=== PATIENT | male | born 1935 | race Caucasian/White ===

== ENCOUNTER 2023-08-31 14:39 | Inpatient (IN) ==
[2023-08-31] MEDS ORDERED: Patient's HEIGHT &/or WEIGHT Needed SCH (14:49)
[2023-08-31] MEDS ORDERED: SODIUM CHLORIDE 0.9% 500 ML IV ONE (14:51)
[2023-08-31] MEDS ORDERED: ONDANSETRON INJ 2 MG/ML 2 ML VIAL IV STA (14:51)
--- NOTE | 2023-08-31 14:51 | ED Triage Note ---
Date of Service August 31, 2023 Provider in Triage Author: Vernell Pérez History of Present Illness This patient was briefly evaluated while in triage. An abbreviated physical exam was performed. This patient is a 88-year-old Male who presents to the ED for evaluation of vomiting which started in the middle of the night. He has not been able to keep anything down. He has had decreased urinary output today (has perez catheter). They noticed some blood in the urine yesterday which is not unusual for him. He had some diarrhea today. He is feeling generally weak today. He reports some mild right low back pain. He has a history of bladder cancer. Physical Exam VITALS: Vitals are noted on the nurse's note and reviewed by myself. GENERAL: This is an 88-year-old male, in no acute distress, sitting up in a wheelchair in triage. HEART: Regular rate and rhythm without murmurs gallops or rubs. LUNGS: Clear to auscultation bilaterally without wheezes, rales or rhonchi. ABDOMEN: Positive bowel sounds x 4. Soft, nontender to palpation. NEURO: Patient was alert and oriented to person place and time. Initial orders for labs and / or imaging were placed and patient was placed in the waiting area until a bed is available. Please see further documentation for the full ED course.
[2023-08-31 16:40] LABS: Hematocrit (blood only) 31.9 % (42.0-52.0); Hemoglobin 10.5 g/dl (14.0-18.0); Mean Corpuscular Hemoglobin 29.1 pg (25.0-34.0); Mean Corpuscular Hgb Conc 32.9 g/dL (32.0-36.0); Mean Corpuscular Volume 88.4 fL (80.0-100.0); Mean Platelet Volume 12.3 fL (9.4-12.4); Platelet Count 351 K/uL (130-400); RDW Coefficient of Variation 15.5 % (11.5-14.5); RDW Standard Deviation 50.6 fL (36.4-46.3); Red Blood Count 3.61 M/uL (4.70-6.10)
[2023-08-31 16:45] LABS: Alanine Aminotransferase 5 U/L (7-52); Albumin Globulin Ratio 0.8 (0.9-2); Albumin Level 3.1 gm/dl (3.4-5.0); Alkaline Phosphatase 77 U/L (34-104); Anion Gap 11 (3-11); Aspartate Aminotransferase 10 U/L (13-39); BUN Creatinine Ratio 25.2 (10-20); Bilirubin,Total 1.2 mg/dl (0.2-1.0); Blood Urea Nitrogen 41 mg/dl (6-23); Calcium 8.9 mg/dl (8.6-10.3); Carbon Dioxide 24 mmol/L (21-32); Chloride 105 mmol/L (98-107); Est GFR (Non-African American) 37.1 ml/min; Globulin 3.9 gm/dl (2.5-4.0); Glucose 127 mg/dl (70-99(Fasting)); Potassium 3.6 mmol/L (3.5-5.1); Sodium 140 mmol/L (136-145)
[2023-08-31 17:02] LABS: Influenza A virus by PCR Negative (Neg); Influenza B virus by PCR Negative (Neg); RSV by PCR Negative (Neg); SARS CoV2 RNA(COVID-19) Ceph NEGATIVE (Negative)
[2023-08-31 17:11] LABS: Basophils # (auto) 0.09 K/uL (0.00-0.20); Basophils % (auto) 0.3 %; Eosinophils # (auto) 0.04 K/uL (0.00-0.50); Eosinophils % (auto) 0.1 %; Immature Granulocytes # (auto) 0.13 K/uL (0.01-0.20); Immature Granulocytes % (auto) 0.5 %; Lymphocytes % (auto) 8.6 %; Monocytes # (auto) 3.67 K/uL (0.11-0.59); Monocytes % (auto) 13.2 %; Neutrophils # (auto) 21.47 K/uL (1.40-6.50); Neutrophils % (auto) 77.3 %
[2023-08-31 17:26] LABS: INR 1.8 (0.9-1.1); Partial Thromboplastin Ratio 1.2; Partial Thromboplastin Time 33 Seconds (21-31); Prothrombin Time 19.3 Seconds (9.0-12.0)
[2023-08-31] MEDS ORDERED: PIPERACILLIN/TAZOBACTAM 4.5 GM/100 ML BAG IV ONE (17:38)
[2023-08-31 18:13] LABS: Appearance Urine Turbid (Clear); Bacteria Urine Automated 4+ (Negative); Bilirubin Urine Negative (Negative); Blood Urine 3+ (Negative); Color Urine Orange; Glucose Urine UA Negative (Negative); Ketones Urine Trace (Negative); Leukocyte Esterase Urine 3+ (Negative); Nitrite Urine Negative (Negative); Protein Urine 3+ (Negative); RBC Urine Automated >30 /hpf (0-4); Specific Gravity Urine 1.015 (1.000-1.030); Urobilinogen Urine Negative (Negative); WBC Urine Automated >30 /hpf (0-5)
--- NOTE | 2023-08-31 18:53 | CT Scan Report ---
CT SCAN OF THE ABDOMEN AND PELVIS WITHOUT IV CONTRAST CLINICAL HISTORY: Vomiting. Leukocytosis. COMPARISON STUDY: No priors. TECHNIQUE: CT scan of the abdomen and pelvis is performed from the lung bases to the proximal femora. Images are reviewed in the axial, sagittal, and coronal planes. IV contrast was not administered for this examination. Note that the examination is significantly suboptimal without oral and IV contrast . A dose lowering technique was utilized adhering to the principles of ALARA. CT DOSE: 698.93 mGy.cm FINDINGS: Lung bases: The patient is status post midline sternotomy. The heart is enlarged and without pericard ial effusion. The coronary arteries are densely calcified. There is a tiny hiatal hernia. There are s mall pleural effusions, left larger than right with dependent atelectasis. Liver: The unenhanced liver is normal in size, contour, and attenuation. There is no intrahepatic yudy iary ductal dilatation. Gallbladder: Surgically absent. Spleen: The spleen is not identified and presumed surgically absent. A 3.6 cm splenule is noted below the left hemidiaphragm. Pancreas: The distal pancreas is not identified and presumed surgically absent. The pancreatic head i s atrophic. Adrenal glands: Unremarkable. Kidneys: The unenhanced kidneys are atrophic and without hydronephrosis. No renal calculi are identif ied. Simple and complex bilateral renal cysts measure up to 4 cm. Abdominal vasculature: The abdominal aorta is normal in course and caliber noting advanced atheroscle rotic calcification. Bowel: Postoperative changes suggested involving the stomach. No bowel obstruction is seen. There is moderate colonic diverticulosis without CT evidence of acute diverticulitis. The appendix is not vis ualized. Peritoneum: There is trace abdominopelvic ascites. No intraperitoneal free air is seen. Lymphadenopathy: There are pathologically enlarged retroperitoneal lymph nodes. A node anterior to th e abdominal aorta on image #111 measures 3.4 x 1.8 cm. A left periaortic nick aggregate on image #11 6 measures 2.5 x 1.6 cm in aggregate dimension. Pelvic viscera: The bladder is decompressed around a Fu catheter and cannot be evaluated. The pros milian gland is diminutive and heterogeneous noting brachytherapy implants in place. Skeletal structures: The skeletal structures are heterogeneously osteopenic. There is mild to moderat e lumbosacral spondylosis. No lytic or blastic lesions are seen. IMPRESSION: 1. Significantly suboptimal examination without oral and IV contrast. 2. 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 Brac hytherapy implants are noted in the prostate gland, as well as pathologically enlarged retroperitonea l lymph nodes which are typical for metastatic disease. Correlate with the oncological and surgical h istory. 3. Small pleural effusions, left larger than right. 4. Trace abdominopelvic ascites. 5. Colonic diverticulosis without CT evidence of acute diverticulitis. 6. Additional findings as above. ACT 112: Negative or not required by law. Electronically signed by: Donta Love M.D. 08/31/2023 6:51 PM
--- NOTE | 2023-08-31 19:21 | History & Physical Report ---
Date of Service August 31, 2023 Assessment & Plan (1) Leukocytosis: Plan: -Admit to med/tele -Currently hemodynamically stable and stable on RA -Came to the ED for ongoing nausea/vomiting since midnight -Noted to have a leukocytosis of 27 with neutrophil predominance of 21 -Is on 5 mg PO prednisone daily with his daily Zytiga for prostate cancer but would not expect his WBC to be this elevated. His WBC was also WNL while on his prednisone on CBC from 08/23 -At this time the most likely sources are UTI due to his chronic perez and pneumonia from possible aspiration with recent vomiting. -Confirmed with his nurse that his initial UA was obtained from his home perez, can't rule out contamination based on results >Will be replacing his perez on admission and will obtain repeat UA from new perez -CXR has been obtain but yet to be read, on my read he appears to have an infiltrate in the right middle/right lower lobe concerning for possible aspiration -No other sources noted at this time -S/P one dose of Zosyn in the ED -Will continue with Ceftriaxone + Flagyl to cover both UTI and possible aspiration pneumonia for now -Follow repeat UA and final chest xray read -Follow Procal ordered in the ED -Holding his 5 mg PO prednisone daily for now with acute infection, monitor BP closely, if it begins to drop would then need stress dosed steroids -S/P 500 mL NSS in the ED -Will give 1L Plasmalyte bolus on admission and continue with light IV fluids overnight -Will give Home Warfarin and BL DIANA's for DVT PPX -HH diet -AM CBC, BMP, mag, PT/INR (2) MC (acute kidney injury): Plan: -Cr at 1.6 today, baseline appears to be near 1.1 per labs on 08/23 -Likely prerenal due to dehydration as he appears significantly dehydrated on exam -Perez cath is draining well, no signs of obstruction on CT of the abd/pelvis -Continue IV fluids overnight, avoid nephrotoxic agents -Holding lisinopril and lasix for now with MC (3) Nausea and vomiting: Plan: -Likely due to an acute infection -CT of the abd/pelvis negative for obstruction or other acute causes -Symptoms currently under control S/P one dose of zofran -Will obtain ECG to monitor QTc and continue IV antiemetics if stable (4) Lactate blood increase: Plan: -Initial and repeat lactate are mildly elevated at 2.2 -Likely due to dehydration and acute infection -Was given 500 mL NSS in the ED -Continue IV hydration as listed in leukocytosis plan (5) Atrial fibrillation: Plan: -Currently in rate controlled afib -Is on Warfain, did not have his am dose today -INR currently at 1.8 -No signs of bleeding -Will give his 5 mg PO dose tonight -Monitor am INR and dose accordingly (6) Chronic indwelling Perez catheter: Plan: -Will exchange perez shortly -Monitor intake/output (7) Hypothyroidism: Plan: -Continue levothyroxine (8) Prostate cancer: Plan: -S/P Brachytherapy in 2002 -Recently established care with [facility] -Normally on daily Zytiga and Prednisone for maintenance therapy -Holding Zytiga and prednisone for now with acute infection (9) Anemia: Plan: -Hgb currently stable -Previous acute blood loss anemia due to hematuria while on Warfarin -No acute bleeding on Exam, will continue to monitor Plan The patient was discussed with Dr. 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 He was noted to have soft BP's on arrival at 103/46 but was otherwise stable. Labs were significant for a leukocytosis of 27 with neutrophil predominance of 21, INR of 1.8, Cr of 1.63 (baseline is near 1.1), initial lactate of 2.2, total bili of 1.2 with other LFT's WNL, UA concerning for possible infection, and covid 19/Influenza/RSV negative. CT of the abd/pelvis wo con was read as "1. Significantly suboptimal examination without oral and IV contrast. 2. 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 Brachytherapy implants are noted in the prostate gland, as well as pathologically enlarged retroperitoneal lymph nodes which are typical for metastatic disease. Correlate with the oncological and surgical history. 3. Small pleural effusions, left larger than right. 4. Trace abdominopelvic ascites. 5. Colonic diverticulosis without CT evidence of acute diverticulitis. 6. Additional findings as above.". Prior to admission the patient was given 500 mL NSS, a dose of Zosyn, and 4 mg IV zofran. At the time of the exam the patient was lying in bed in no acute distress with his Daughter sitting bedside, history was obtained from both. They state that he recently established care with [facility] and [facility] as he moved from [place] to live with his daughter. His perez catheter was exchanged by Urology in the Clinic on 08/26. He had been in his normal state of health recently but developed acute onset of non-bloody emesis which started at a pproximately midnight. He had been eating and drinking well prior to this. They state that he had poor oral intake since but denies recent fever. He was unable to take his night meds last night or am meds today due to his symptoms. They clarify that he takes 5 mg PO prednisone daily with his daily abiraterone for prostate cancer to prevent swelling in the BL feet. He states that his symptoms are improved after initial treatment in the ED. He is a full code and wishes for his Daughter to make medical decisions for him if he cannot make them himself. Please refer to Dr. Wills's attestation for any changes to the treatment Allergies Allergy/AdvReac Type Severity Reaction Status Date / Time No Known Allergies Allergy Verified 08/26/23 10:30 Home Medications Medication Instructions Recorded Confirmed Type abiraterone 250 mg tablet 1,000 mg (4 x 250 mg) PO DAILY 08/11/23 08/31/23 Rx #120 tabs atorvastatin 20 mg tablet 20 mg PO QPM #90 tabs 08/11/23 08/31/23 Rx cholecalciferol (vitamin D3) 25 25 mcg PO DAILY #90 caps 08/11/23 08/31/23 Rx mcg (1,000 unit) capsule ferrous sulfate 325 mg (65 mg 325 mg PO DAILY 90 days #90 tabs 08/11/23 08/31/23 Rx iron) tablet furosemide 20 mg tablet 20 mg PO QAM #90 tabs 08/11/23 08/31/23 Rx levothyroxine 150 mcg tablet 150 mcg PO DAILY #90 tabs 08/11/23 08/31/23 Rx lisinopril 40 mg tablet 40 mg PO DAILY #90 tabs 08/11/23 08/31/23 Rx potassium chloride 20 mEq 20 meq PO DAILY #90 tabs 08/11/23 08/31/23 Rx tablet,extended release prednisone 5 mg tablet 5 mg PO DAILY #30 tabs 08/11/23 08/31/23 Rx warfarin 5 mg tablet 5 mg PO DAILY #30 tabs 08/11/23 08/31/23 Rx Past Med/Surg History Medical History (Updated 09/01/23 @ 16:35 by Christopher Miller MD) Urinary retention Hematuria Hypothyroidism Kidney stone Social History Smoking Status: Never smoker Hx Alcohol Use: No Hx Substance Use: No Communication Ability: Effective Beliefs That Will Affect Care: None Current Living Situation: Family Feels Safe at Home: Yes Assistive Devices: Walker Physical Exam Physical Exam: Physical Exam: General: In no acute distress, stated age, chronically ill appearing but non- toxic appearing HEENT: Normocephalic, atraumatic, no scleral icterus, pupils around round, symmetrical, and reactive to light, dry mucus membranes, trachea midline, no thyromegaly Chest/Pulm: No respiratory distress, symmetrical chest expansion, rhonchi noted in the right lower lung field, otherwise CTA Cardiac: irregular rate and rhythm, no murmurs noted Abdomen: Negative for ascites and bruising, normoactive bowel sounds, soft, non-tender to palpation throughout : Perez catheter is in place and currently draining dark, urine Musculoskeletal: Symmetrical and without signs of acute trauma, upper and lower extremities with full ROM, no atrophy, spasticity, or flaccidity Extremities: Radial, dorsalis pedis, and posterior tibial pulses are intact and symmetrical, no edema noted in the BL LE's Skin: Warm, dry, no rashes , lesions, or scars noted Neuro: Alert and oriented to person, place, month, year, and president, no focal defects, no tremors noted Psych: No acute distress, calm and cooperative during the exam Results & Data Results & Data Vital Signs (Past 12 Hours) Vital Signs Temp Pulse Pulse Resp BP Pulse Ox O2 Del Method 08/31/23 18:39 63 08/31/23 14:51 75 109/52 L 98 Room Air 08/31/23 14:49 37.2 C 72 20 98 Room Air Laboratory Results Abnormal lab results 08/31/23 08/31/23 08/31/23 Range/Units 16:15 17:52 17:53 WBC 27.80 H (4.8-10.8) K/ul RBC 3.61 L (4.70-6.10) M/uL Hgb 10.5 L (14.0-18.0) g/dl Hct 31.9 L (42.0-52.0) % RDW Std Deviation 50.6 H (36.4-46.3) fL RDW Coeff of Brittany 15.5 H (11.5-14.5) % Neut # (Auto) 21.47 H (1.40-6.50) K/uL [place] # (Auto) 3.67 H (0.11-0.59) K/uL PT 19.3 H (9.0-12.0) Seconds INR 1.8 H (0.9-1.1) APTT 33 H (21-31) Seconds BUN 41 H (6-23) mg/dl Creatinine 1.63 H (0.6-1.4) mg/dl BUN/Creatinine Ratio 25.2 H (10-20) Glucose 127 H (70-99(Fasting)) mg/dl Lactate 2.2 H* (0.4-2.0) mmol/L Total Bilirubin 1.2 H (0.2-1.0) mg/dl AST 10 L (13-39) U/L ALT 5 L (7-52) U/L Albumin 3.1 L (3.4-5.0) gm/dl Albumin/Globulin Ratio 0.8 L (0.9-2) Urine Appearance Turbid A (Clear) Urine Protein 3+ H (Negative) Urine Ketones Trace H (Negative) Urine Blood 3+ H (Negative) Ur Leukocyte Esterase 3+ H (Negative) Urine WBC (Auto) >30 H (0-5) /hpf Urine RBC (Auto) >30 H (0-4) /hpf U Epithel Cells (Auto) 10-20 H (0-5) /lpf Urine Bacteria (Auto) 4+ H (Negative) 08/31/23 Range/Units 19:39 WBC (4.8-10.8) K/ul RBC (4.70-6.10) M/uL Hgb (14.0-18.0) g/dl Hct (42.0-52.0) % RDW Std Deviation (36.4-46.3) fL RDW Coeff of Brittany (11.5-14.5) % Neut # (Auto) (1.40-6.50) K/uL [place] # (Auto) (0.11-0.59) K/uL PT (9.0-12.0) Seconds INR (0.9-1.1) APTT (21-31) Seconds BUN (6-23) mg/dl Creatinine (0.6-1.4) mg/dl BUN/Creatinine Ratio (10-20) Glucose (70-99(Fasting)) mg/dl Lactate 2.2 H* (0.4-2.0) mmol/L Total Bilirubin (0.2-1.0) mg/dl AST (13-39) U/L ALT (7-52) U/L Albumin (3.4-5.0) gm/dl Albumin/Globulin Ratio (0.9-2) Urine Appearance (Clear) Urine Protein (Negative) Urine Ketones (Negative) Urine Blood (Negative) Ur Leukocyte Esterase (Negative) Urine WBC (Auto) (0-5) /hpf Urine RBC (Auto) (0-4) /hpf U Epithel Cells (Auto) (0-5) /lpf Urine Bacteria (Auto) (Negative) Diagnostic Findings Abdomen/Pelvis CT 08/31/23 17:37 CT SCAN OF THE ABDOMEN AND PELVIS WITHOUT IV CONTRAST CLINICAL HISTORY: Vomiting. Leukocytosis. COMPARISON STUDY: No priors. TECHNIQUE: CT scan of the abdomen and pelvis is performed from the lung bases to the proximal femora. Images are reviewed in the axial, sagittal, and coronal planes. IV contrast was not administered for this examination. Note that the examination is significantly suboptimal without oral and IV contrast. A dose lowering technique was utilized adhering to the principles of ALARA. CT DOSE: 698.93 mGy.cm FINDINGS: Lung bases: The patient is status post midline sternotomy. The heart is enlarged and without pericardial effusion. The coronary arteries are densely calcified. There is a tiny hiatal hernia. There are small pleural effusions, left larger than right with dependent atelectasis. Liver: The unenhanced liver is normal in size, contour, and attenuation. There is no intrahepatic biliary ductal dilatation. Gallbladder: Surgically absent. Spleen: The spleen is not identified and presumed surgically absent. A 3.6 cm splenule is noted below the left hemidiaphragm. Pancreas: The distal pancreas is not identified and presumed surgically absent. The pancreatic head is atrophic. Adrenal glands: Unremarkable. Kidneys: The unenhanced kidneys are atrophic and without hydronephrosis. No renal calculi are identified. Simple and complex bilateral renal cysts measure up to 4 cm. Abdominal vasculature: The abdominal aorta is normal in course and caliber noting advanced atherosclerotic calcification. Bowel: Postoperative changes suggested involving the stomach. No bowel obstruction is seen. There is moderate colonic diverticulosis without CT evidence of acute diverticulitis. The appendix is not visualized. Peritoneum: There is trace abdominopelvic ascites. No intraperitoneal free air is seen. Lymphadenopathy: There are pathologically enlarged retroperitoneal lymph nodes. A node anterior to the abdominal aorta on image #111 measures 3.4 x 1.8 cm. A left periaortic nick aggregate on image #116 measures 2.5 x 1.6 cm in aggregate dimension. Pelvic viscera: The bladder is decompressed around a Perez catheter and cannot be evaluated. The prostate gland is diminutive and heterogeneous noting brachytherapy implants in place. Skeletal structures: The skeletal structures are heterogeneously osteopenic. There is mild to moderate lumbosacral spondylosis. No lytic or blastic lesions are seen. IMPRESSION: 1. Significantly suboptimal examination without oral and IV contrast. 2. 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 Brachytherapy implants are noted in the prostate gland, as well as pathologically enlarged retroperitoneal lymph nodes which are typical for metastatic disease. Correlate with the oncological and surgical history. 3. Small pleural effusions, left larger than right. 4. Trace abdominopelvic ascites. 5. Colonic diverticulosis without CT evidence of acute diverticulitis. 6. Additional findings as above. ACT 112: Negative or not required by law. Electronically signed by: Donta Love M.D. 08/31/2023 6:51 PM ECG Additional Comments: Will obtain at the time of admission Code Status & VTE Plan Code Status FUll code VTE Prophylaxis Plan VTE Prophylaxis will be ordered: Yes Supervising Physician Co-Signing Physician Notes Patient seen and examined, chart reviewed, case discussed with PATRICIA Ray and I agree with the assessment and plan as documented above. In brief, patient is an 88yo male with history of prostate cancer s/p brachytherapy currently on Lupron and abiraterone, bladder cancer and chronic urinary retention with indwelling Perez, AF on Coumadin and ongoing hematuria. Patient presents with nausea/vomiting/decreased UOP and weakness. On exam he is frail appearing, NAD Skin - no rash HEENT - Dry mucus membranes, neck supple Heart - +S1/S2, irregularly irregular, no m/r/g Lungs - CTA, no rales, coarse breath sounds in right base Abd - +BS, soft, NT/ND, Perez in place with dark, mari urine in bag Ext - warm Labs and images reviewed Assessment/Plan - suspect infection given patient's symptoms, leukocytosis. Question of lung vs urine vs other -Continue antibiotics -IVF -Follow cultures sent from the ER -Remainder of plan as above PG Care Time/CCT Total # of Minutes Spent Total Time Spent with Patient: Total time spent is greater than 50% in coordination of care (as documented) at patient's floor/unit and/or counseling patient: Coding [place] [address] INT INP/OBS CARE 2/55MIN Patient Type Established Medical Decision Making Moderate Complexity Diagnoses Leukocytosis D72.829 MC (acute kidney injury) N17.9 Nausea and vomiting R11.2 Lactate blood increase R79.89 Atrial fibrillation I48.91 Chronic indwelling Perez catheter Z97.8 Hypothyroidism E03.9 Prostate cancer C61 Anemia D64.9 Other causes of anemia: acute posthemorrhagic (9) Anemia Other causes of anemia: acute posthemorrhagic
[2023-08-31] MEDS ORDERED: PLASMA-LYTE A 1,000 ML IV ONE (20:20)
[2023-08-31] MEDS ORDERED: POTASSIUM CHLORIDE / WTR 10 MEQ/100 ML PLCT IV ONE (20:21)
[2023-08-31] MEDS ORDERED: WARFARIN SOD 5 MG TAB PO STA (20:54)
[2023-08-31] MEDS ORDERED: metroNIDAZOLE 500 MG/100 ML BAG IV SCH (21:00)
[2023-08-31] MEDS ORDERED: cefTRIAXone SODIUM 2,000 MG in DEXTROSE 5 % MINI-B 50 ML IV SCH (21:00)
[2023-08-31] MEDS ORDERED: LIDOCAINE 2% JELLY 5 ML TUBE EXT ONE (22:01)
[2023-08-31] MEDS: ATORVASTATIN 20 MG TAB PO SCH (23:55)
[2023-09-01] MEDS: PIPERACILLIN/TAZOBACTAM 4.5 GM in DEXTROSE 5% MINI-B 100 ML IV SCH ×3 (01:32→18:37)
[2023-09-01 04:28] LABS: Appearance Urine Turbid (Clear); Bacteria Urine Automated Negative (Negative); Bilirubin Urine Negative (Negative); Blood Urine 3+ (Negative); Color Urine Yellow; Epithelial Cell Urine Auto 0-5 /lpf (0-5); Glucose Urine UA Negative (Negative); Ketones Urine Negative (Negative); Leukocyte Esterase Urine 2+ (Negative); Nitrite Urine Negative (Negative); Protein Urine 3+ (Negative); Specific Gravity Urine 1.017 (1.000-1.030); Urobilinogen Urine Negative (Negative); WBC Urine Automated >30 /hpf (0-5); pH Urine 5.5 (4.5-7.5)
[2023-09-01 04:55] LABS: RBC Urine Automated >30 /hpf (0-4)
[2023-09-01 04:57] LABS: Hematocrit (blood only) 27.5 % (42.0-52.0); Hemoglobin 9.2 g/dl (14.0-18.0); Mean Corpuscular Hemoglobin 29.3 pg (25.0-34.0); Mean Corpuscular Hgb Conc 33.5 g/dL (32.0-36.0); Mean Corpuscular Volume 87.6 fL (80.0-100.0); Mean Platelet Volume 12.3 fL (9.4-12.4); Platelet Count 277 K/uL (130-400); RDW Coefficient of Variation 15.5 % (11.5-14.5); RDW Standard Deviation 49.5 fL (36.4-46.3); Red Blood Count 3.14 M/uL (4.70-6.10); White Blood Count 27.38 K/ul (4.8-10.8)
[2023-09-01 05:15] LABS: Albumin Globulin Ratio 0.8 (0.9-2); Albumin Level 2.6 gm/dl (3.4-5.0); BUN Creatinine Ratio 23.4 (10-20); Bilirubin,Total 0.9 mg/dl (0.2-1.0); Calcium 7.9 mg/dl (8.6-10.3); Creatinine Clr Calc Pharmacy 22.7 ml/min; Est GFR (African American) 36.1 ml/min; Est GFR (Non-African American) 31.2 ml/min; Globulin 3.3 gm/dl (2.5-4.0); Magnesium 1.6 mg/dl (1.7-2.4); Potassium 3.4 mmol/L (3.5-5.1); Total Protein 5.9 gm/dl (6.0-8.3)
[2023-09-01 05:21] LABS: INR 2.1 (0.9-1.1); Prothrombin Time 21.6 Seconds (9.0-12.0)
[2023-09-01 05:42] LABS: Basophils # (auto) 0.09 K/uL (0.00-0.20); Basophils % (auto) 0.3 %; Echinocytes 2+; Eosinophils # (auto) 0.04 K/uL (0.00-0.50); Eosinophils % (auto) 0.1 %; Immature Granulocytes # (auto) 0.23 K/uL (0.01-0.20); Immature Granulocytes % (auto) 0.8 %; Lymphocytes # (auto) 1.44 K/uL (1.20-3.40); Lymphocytes % (auto) 5.3 %; Monocytes # (auto) 3.34 K/uL (0.11-0.59); Monocytes % (auto) 12.2 %; Neutrophils # (auto) 22.24 K/uL (1.40-6.50); Neutrophils % (auto) 81.3 %
[2023-09-01] MEDS: LEVOTHYROXINE SODIUM 150 MCG TABLET PO SCH (06:24)
[2023-09-01 06:38] LABS: A calco-baum cmplx NotReported Not Detected (NotDetected); Bact fragilis Not Reported Not Detected (NotDetected); Blood Culture Id Panel See PCR Comment (NotDetected); C auris Not Reported Not Detected (NotDetected); CTX-M Resistant Gene Not Detected (NotDetected); Calbicans Not Reported Not Detected (NotDetected); Candida glabrata Not Reported Not Detected (NotDetected); Candida krusei Not Reported Not Detected (NotDetected); Cneoformans/gatti Not Reported Not Detected (NotDetected); Cparapsilosis Not Reported Not Detected (NotDetected); E cloacae compx Not Reported Not Detected (NotDetected); Efaecalis Not Reported Not Detected (NotDetected); Efaecium Not Reported Not Detected (NotDetected); Enterobacterales DETECTED (NotDetected); Enterobacterales Not Reported DETECTED (NotDetected); Escherichia coli Not Reported DETECTED (NotDetected); H influenzae Not Reported Not Detected (NotDetected); IMP Resistant Gene Not Detected (NotDetected); K aerogenes Not Reported Not Detected (NotDetected); KPC Resistant Gene Not Detected (NotDetected); Koxytoca Not Reported Not Detected (NotDetected); Kpneumoniae grp Not Reported DETECTED (NotDetected); Lmonocyt Not Reported Not Detected (NotDetected); N meningitidis Not Reported Not Detected (NotDetected); NDM Resistant Gene Not Detected (NotDetected); OXA 48 Like Resistant Gene Not Detected (NotDetected); P aeruginosa Not Reported Not Detected (NotDetected); Proteus spp Not Reported Not Detected (NotDetected); Salmonella spp Not Reported Not Detected (NotDetected); Smarcescens Not Reported Not Detected (NotDetected); Staph lugdunensis Not Reported Not Detected (NotDetected); Staph spp. Not Reported Not Detected (NotDetected); Staphaureus Not Reported Not Detected (NotDetected); Staphepi Not Reported Not Detected (NotDetected); Stenmaltophilia Not Reported Not Detected (NotDetected); Strep agal(GrpB) Not Reported Not Detected (NotDetected); Strep pneum Not Reported Not Detected (NotDetected); Strep pyog (GrpA) Not Reported Not Detected (NotDetected); Strep spp Not Reported Not Detected (NotDetected); VIM Resistant Gene Not Detected (NotDetected); mcr-1 Colistin Resistant Gene Not Detected (NotDetected)
--- NOTE | 2023-09-01 06:55 | XRay Report ---
XR chest 1V portable HISTORY: 88 years-old Male weakness, vomiting acute weakness with nausea and vomiting COMPARISON: CT abdomen and pelvis of same day TECHNIQUE: AP view of the chest FINDINGS: Cardiac silhouette is enlarged. Median sternotomy. Trace right and small left pleural effusions with minimal bibasilar atelectasis. Pulmonary vascular congestion with interstitial coarsening. No pneumot horax. Left axillary surgical clips. The left inferior costophrenic angle is excluded from the field- of-view. IMPRESSION: 1. Cardiomegaly with pulmonary vascular congestion. 2. Trace right and small left pleural effusions with mild bibasilar opacities suggestive of atelectas is. ACT 112: Negative or not required by law. The above report was generated using voice recognition software. It may contain grammatical, syntax o r spelling errors. Electronically signed by: Deion Maguire M.D. 09/01/2023 6:54 AM
[2023-09-01 07:07] LABS: Klebsiella pneumoniae group DETECTED (NotDetected)
[2023-09-01] MEDS ORDERED: PLASMA-LYTE A 500 ML IV ONE (09:38)
[2023-09-01] MEDS: FERROUS SULFATE 325 MG TAB PO SCH (09:44)
--- NOTE | 2023-09-01 09:52 | Hospitalist Progress Note ---
Date of Service September 01, 2023 Assessment & Plan (1) Goals of care, counseling/discussion: Plan: Mr. Goncalves does request hospice initially on bedside visit. His family is present for this discussion. Patient and family note that his approximately 2 years ago and was on hospice at that time. Florentin reports that he has had a frustrating course with gradual decline, recurrent infections, invasive procedures with respect to his bladder and he does not wish for further escalation of care and invasive measures. He reports that he is interested in switching to hospice now because he feels much more poorly than his normal baseline. Did discuss that he is acutely bacteremic and that antibiotics are not necessarily precluded from hospice, but that his current level of illness is likely not reflective of his baseline, although this baseline has been declining in the preceding months. Patient is not sure whether he would still want hospice if he could be returned to her baseline level Helsel approximately 2 weeks ago, but likely would still be interested in this and does not want escalation of care or invasive measures. He would like to continue treatment for this infection including admission, IV antibiotics, and steroids if there is a chance that it can improve his quality of life. Would like to meet with palliative care while inpatient. PT reports he has had recurrent issues with infection and UTIs, and is on hormone therapy with Zytiga/prednisone. W/ his hx of prostate ca, gradual decline, and recurrent issues with radiation hematuria and progressive functional decline in the preceding months patient is a reasonable hospice candidate if this is consistent with his goals of care however suspect that his current request for hospice is also driven acutely w/ frustration with feeling terribly from bacteremia and his current infection, rather than due to his baseline. Patient is agreeable to palliative care/hospice consultation tomorrow, and continue treatment including antibiotics/steroids at this time. He does not want any escalation of care or invasive procedures performed, and if he should clinically worsen would want to transition completely to comfort measures at that time. Family appreciative of discussion, and will be present at 10 AM tomorrow morning for further reevaluation and palliative meeting (2) Leukocytosis: Plan: Sepsis, gram-negative bacteremia, UTI UA infected appearing, recent urologic manipulation, GNB growing in both UC and 4/4 blood cultures Blood cultures PCR positive for Klebsiella species. KBC not reported, patient was placed on Zosyn overnight and this is continued pending sensitivities/speciation. Discussed deferring narrowing to Rocephin which would be appropriate given his negative PCR testing however do not feel this is appropriate in the setting of his poor clinical appearance Procalcitonin is elevated at 13 consistent with gram-negative bacteremia Lactate 2.2, repeat last night was 2.2. Patient with some vascular congestion but without heart failure or oxygen requirement. Continues to be mildly hypotensive and volume contracted, improved transiently with small Plasma-Lyte bolus. Random cortisol is low normal; however in the setting of sepsis and acute hypotension this should be elevated. Hydrocortisone every 8 hours 20 mg started for AI, BP improved. Suspect patient is total volume overloaded as he has some pulmonary vascular congestion and scant edema but has been intravascularly depleted in the setting of sepsis with third spacing. He has no diagnosis of heart failure, BNP is elevated with some pulmonary vascular congestion suggestive of at least diastolic failure. Patient does not wish for aggressive cardiac evaluation at this time; will defer both additional boluses of Lasix at this time and BP is improving. Chronic prednisone 5 mg held while on hydrocortisone (3) MC (acute kidney injury): Plan: -Baseline creatinine around 1.1 1.6 on admission, uptrending to 1.88 with clinical volume contraction and active infection Additional fluid bolus given, uptitrate fluids. Hydrocortisone as noted Hold lisinopril, hold Lasix. Continue to trend UOP (4) Nausea and vomiting: Plan: -CT of the abd/pelvis negative for obstruction or other acute causes -Symptoms currently under control S/P one dose of zofran -EKG remains pending, reordered stat for QT C check (5) Lactate blood increase: Plan: -Initial and repeat lactate are mildly elevated at 2.2 -Likely due to dehydration and acute infection -Fluids as noted Sepsis treatment as noted. Blood pressure improved (6) Atrial fibrillation: Plan: -Currently in rate controlled afib INR daily, within therapeutic range 09/01 (7) Chronic indwelling Fu catheter: Plan: Strict ins and outs S/p Fu exchange (8) Hypothyroidism: Plan: -Continue levothyroxine (9) Prostate cancer: Plan: -S/P Brachytherapy in 2002 -Recently established care with [facility] -Normally on daily Zytiga and Prednisone for maintenance therapy -Zytiga/Prednisone held on admit for active infection (10) Anemia: Plan: -Hemoglobin baseline around 9/10.5, currently 9.2 post fluids Trend daily Plan DVT prophylaxis: Anticoagulated for A-fib CODE STATUS: DNR/DNI, updated see goals of care discussion Disposition: PCU Diet: Heart healthy Admission and Anticipated Discharge Date Admission Date: August 31, 2023 Subjective Seen with family at bedside. 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 Continually with infections and recent issues with hematuria, has had general strength decline in the preceding few months and greatly worsened with in fection in the last few days. Pt living with family in [place] since august, but really has been declining and could not be alone since the last six months. Weight loss has been gradual, at 150 and ~170s 1 year ago. Past month has no appetite, no interest in eating and drinking. Has a stint 2 weeks ago where he briefly had a good appetite, but again declined after seeing urology and feels overall very poor. Pt reports he has chronic back aches and pain, low energy, frustration with ongoing bladder problems. 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 NO cardiology followup. No ischemia. No history of heart attack. Was off warfarin for 3 weeks. Restarted after seeing PCP and restarted on PCP discussion due to risks/benefits discussion of stroke, did have some blood in urine again 2 days ago. Mr. Goncalves does request hospice initially on bedside visit. His family is present for this discussion. Patient and family note that his approximately 2 years ago and was on hospice at that time. Florentin reports that he has had a frustrating course with gradual decline, recurrent infections, invasive procedures with respect to his bladder and he does not wish for further escalation of care and invasive measures. He reports that he is interested in switching to hospice now because he feels much more poorly than his normal baseline. Did discuss that he is acutely bacteremic and that antibiotics are not necessarily precluded from hospice, but that his current level of illness is likely not reflective of his baseline, although this baseline has been declining in the preceding months. Patient is not sure whether he would still want hospice if he could be returned to her baseline level Helsel approximately 2 weeks ago, but likely would still be interested in this and does not want escalation of care or invasive measures. He would like to continue treatment for this infection including admission, IV antibiotics, and steroids if there is a chance that it can improve his quality of life. Would like to meet with palliative care while inpatient. With patient's medical comorbidities, gradual decline, and recurrent issues with radiation hematuria and progressive functional decline in the preceding months patient may be a good hospice candidate however suspect that his current request for hospice is driven more by frustration with feeling terribly from bacteremia and his current infection. Patient is agreeable to palliative care consultation tomorrow, and continue treatment including antibiotics/steroids at this time. He does not want any escalation of care or invasive procedures performed, and if you should clinically worsened would want to transition completely to comfort measures at that time. Family appreciative of discussion, and will be present at 10 AM tomorrow morning for further reevaluation and palliative meeting Physical Exam Physical Exam: General: Fatigued, ill but nontoxic appearing. Awakens easily and answers questions appropriately. HEENT: Atraumatic, normocephalic. Pulm: diminished but w/o rales/crackles/wheeze. Symmetrical chest rise. No increased work of breathing. No respiratory distress. Cardiac: RRR, -mrg. Radial pulses intact and symmetrical. Abdominal: Nontender, nondistended, soft. BS present. Ext: Warm, dry. No LE edema, trace bilateral pedal edema. Results & Data Results & Data Vital Signs (Past 12 Hours) Vital Signs Pulse Pulse Resp BP BP Pulse Ox Pulse Ox 09/01/23 09:38 95 09/01/23 09:38 76 21 104/52 L 98 09/01/23 08:00 75 12 95 09/01/23 08:00 107/50 L 09/01/23 07:33 74 09/01/23 07:01 106/47 L 09/01/23 07:01 80 16 95 09/01/23 07:00 74 19 94 09/01/23 06:00 109/47 L 09/01/23 06:00 77 27 H 94 09/01/23 05:00 75 22 107/42 L 94 09/01/23 04:00 76 12 107/41 L 96 09/01/23 02:00 73 26 H 102/45 L 99 09/01/23 01:31 76 14 93/43 L 95 09/01/23 00:00 08/31/23 23:19 75 08/31/23 22:00 71 20 116/48 L O2 Del Method O2 Del Method 09/01/23 09:38 Room Air 09/01/23 09:38 Room Air 09/01/23 08:00 09/01/23 08:00 09/01/23 07:33 09/01/23 07:01 09/01/23 07:01 09/01/23 07:00 09/01/23 06:00 09/01/23 06:00 09/01/23 05:00 09/01/23 04:00 09/01/23 02:00 09/01/23 01:31 09/01/23 00:00 Room Air 08/31/23 23:19 08/31/23 22:00 PG Care Time/CCT Total # of Minutes Spent Total Time Spent with Patient: Total time spent is greater than 50% in coordination of care (as documented) at patient's floor/unit and/or counseling patient: Coding Level of Care Code 98002 SUB INP/OBS CARE 3/50MIN Diagnoses Goals of care, counseling/discussion Z71.89 Leukocytosis D72.829 MC (acute kidney injury) N17.9 Nausea and vomiting R11.2 Lactate blood increase R79.89 Atrial fibrillation I48.91 Chronic indwelling Fu catheter Z97.8 Hypothyroidism E03.9 Prostate cancer C61 Anemia D64.9 Other causes of anemia: acute posthemorrhagic (10) Anemia Other causes of anemia: acute posthemorrhagic
[2023-09-01] MEDS: MAGNESIUM OXIDE 400 MG TAB PO SCH ×2 (10:57→21:55)
[2023-09-01] MEDS: POTASSIUM CHLORIDE / WTR 10 MEQ/100 ML PLCT IV SCH ×2 (11:09→12:07)
[2023-09-01] MEDS: WARFARIN SOD 5 MG TAB PO SCH (17:17)
[2023-09-01] MEDS: HYDROCORTISONE SOD 20 MG in SYRINGE 0 ML IV SCH (17:17)
[2023-09-01] MEDS: ATORVASTATIN 20 MG TAB PO SCH (21:49)
[2023-09-02] MEDS: HYDROCORTISONE SOD 20 MG in SYRINGE 0 ML IV SCH ×4 (00:21→23:06)
[2023-09-02] MEDS: PIPERACILLIN/TAZOBACTAM 4.5 GM in DEXTROSE 5% MINI-B 100 ML IV SCH (00:53)
[2023-09-02 05:36] LABS: Basophils # (auto) 0.06 K/uL (0.00-0.20); Basophils % (auto) 0.3 %; Hemoglobin 8.6 g/dl (14.0-18.0); Immature Granulocytes # (auto) 0.15 K/uL (0.01-0.20); Immature Granulocytes % (auto) 0.7 %; Lymphocytes # (auto) 0.79 K/uL (1.20-3.40); Lymphocytes % (auto) 3.9 %; Mean Corpuscular Hemoglobin 29.7 pg (25.0-34.0); Mean Corpuscular Hgb Conc 33.1 g/dL (32.0-36.0); Mean Corpuscular Volume 89.7 fL (80.0-100.0); Mean Platelet Volume 12.2 fL (9.4-12.4); Monocytes # (auto) 1.31 K/uL (0.11-0.59); Monocytes % (auto) 6.4 %; Neutrophils % (auto) 88.7 %; Platelet Count 306 K/uL (130-400); RDW Coefficient of Variation 15.6 % (11.5-14.5); RDW Standard Deviation 50.9 fL (36.4-46.3); White Blood Count 20.51 K/ul (4.8-10.8)
[2023-09-02 05:40] LABS: Albumin Globulin Ratio 0.8 (0.9-2); Albumin Level 2.4 gm/dl (3.4-5.0); BUN Creatinine Ratio 23.1 (10-20); Bilirubin,Total 0.7 mg/dl (0.2-1.0); Calcium 7.7 mg/dl (8.6-10.3); Creatinine Clr Calc Pharmacy 19.8 ml/min; Est GFR (African American) 30.6 ml/min; Est GFR (Non-African American) 26.4 ml/min; Globulin 3.1 gm/dl (2.5-4.0); Potassium 3.4 mmol/L (3.5-5.1); Total Protein 5.5 gm/dl (6.0-8.3)
[2023-09-02 05:50] LABS: Prothrombin Time 30.6 Seconds (9.0-12.0)
[2023-09-02] MEDS ORDERED: ceFAZolin 1000MG 1,000 MG/7.5 ML SYR IV SCH (09:00)
[2023-09-02] MEDS: MAGNESIUM OXIDE 400 MG TAB PO SCH ×2 (09:03→20:26)
[2023-09-02] MEDS: LEVOTHYROXINE SODIUM 150 MCG TABLET PO SCH (09:03)
[2023-09-02] MEDS: FERROUS SULFATE 325 MG TAB PO SCH (09:03)
--- NOTE | 2023-09-02 10:58 | Palliative Care Consultation ---
Date of Consultation September 02, 2023 Assessment & Plan (1) Palliative care by specialist: Met with pt/family. Provided overview of Palliative Medicine, a subspecialty that provides specialized medical care for people living with a serious illness by offering a focus on quality of life. Palliative Medicine is often conflated with hospice: I advised patient/family that Palliative and hospice can be partners but we are not the same. It is important to understand the difference so that we may be informed, and not afraid. Palliative Medicine works to improve QOL through reduction of symptom burden/more control over their illness, for both the patient and family. Palliative medicine clinicians are board certified, specially-trained and another member of the patient's medical care team. We often provide an extra layer of support because our care is based on the needs of the patient, not the prognosis; as such, it's appropriate at any age/advancing stage of a serious illness and can be provided along with curative treatment. Palliative Medicine clinicians are also trained in advanced communication methodologies, to facilitate complex discussions about advanced illness planning, which are needed to help assure that the treatment choices match the patient's goals, aka delivering Goal Concordant care. Finally, we discussed that hospice is a visiting nurse service that focuses on care delivered at the very end of life for patients with terminal illness, with life expectancy less than 6 month. 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 Ultimately decided to move to assisted living in [place] but about a month ago moved her e to live with daughter bc he realized he was needing more help. He has chronic UTI/hematuria issues as sequelae from prostate ca, from about Jun 2022 forward. Had some scraping etc with uro and has had recurring infections When he does not have urinary catheter in place he gets spasms and blockages and then decided to have an indwelling catheter He and dtr note that he has been growing increasingly weaker and dtr notes more invasive procedures are not going to help prolong life in meaningful way but when infections are treated he feels better and has reasonable QOL that makes him happy. Dtr is recently retired, her and her are both home and actively help care for pt. Her son is also at home but goes to college, can occ help. Her sister lives in [place] and can help occasionally but she still works time clock mechanic so it is not as easy for her to come up. Dtr notes he will be starting a new [employer] policy eff Sep 2023 since moving from [place]. Patient states the new insurance advertised as being very comprehensive and would provide support so he hopes they will deliver on their promise. We discussed they will need to address this specific concern with care mgt. Pt has a clear goal to maintain QOL and good sx mgt for as long as he is able but he is not leaning towards hospice right now. We discussed the goals of hospice as a patient service and the goals of care; we discussed EOL trajectories and transitions mi the emotional impact of realizing mortality as a concrete reality from prior abstract considerations. Pt was reassured that no matter where they are along this trajectory, they are not alone - their medical team will remain by their side through their journey. Discussed the pros/cons of accepting help when especially weakened and distressed by pain-which would also help provide relief/decrease caregiver burden/strain. He had hospice for his and had a very good experience with them, he tells me he is not opposed to having hospice be part of his care when he gets to that point but right now he feels better with Abtx and wants to continue using them when needed. He would like to know if there is something suppressive to be given or taken for UTI prevention and he is willing to add a more regular suppressive Abtx regimen to his daily meds if this can be done. He would like urology to advise on this question and dtr notes she does not feel recurrent cystos are the necessarily right answer at this junction given pt declining PS, weakness and growing frailty. (3) Weakness generalized: (4) Nausea and vomiting: Vomiting type: unspecified Qualified Code(s): R11.2 - Nausea with vomiting, unspecified (5) Social isolation: Plan * Pt would like a more moderate approach to his care but does not want hospice at this time. He enjoys the QOL he has since moving in with daughter. His mental capacity remains intact and he has susie in his time with family. * He would like UTI treated in a preventive manner with ?suppressive ABtx if possible - this has been deferred to urology to offer more guidance. He still wants to have his catheter changed monthly and asks if a home care nurse could do it so that he would not have to come back and forth to hospital clinics. * He does desire treatment for acute infections with ABtx, noting he has good response and feels better. This for now is QOL for him but if he reaches a time where ABtx don't help or he worsens in spite of them, he would desire a focus on comfort. * Pt and dtr are agreeable to ongoing following in OP Pall med clinic with me, should be seen within 4 weeks of dc and we can have continued dialogues about serious illness planning and sx mgt Thank you for allowing us to participate in the ongoing care of this patient. Please don't hesitate to call or page with any additional concerns. Dr. 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 Yesterday, pt was feeling very overwhelmed and frustrated by his illness and told both his family and primary team that he wants to go home on hospice. HOwever it is noted he had a reasonable QOL as recently as 2 weeks ago. He moved here from [facility] in [place] to move into daughter's home. SHe and her are retired and able to help care for pt around the clock in addition to their son who can help when not in college. Pt shares that his a few years ago and he had hospice at home for his . He had a very positive experience with hospice and notes he has no opposition to having them help care for him when his time is nearing its natural end. Allergies Allergy/AdvReac Type Severity Reaction Status Date / Time No Known Allergies Allergy Verified 08/26/23 10:30 Home Medications Medication Instructions Recorded Confirmed Type abiraterone 250 mg tablet 1,000 mg (4 x 250 mg) PO DAILY 08/11/23 08/31/23 Rx #120 tabs atorvastatin 20 mg tablet 20 mg PO QPM #90 tabs 08/11/23 08/31/23 Rx cholecalciferol (vitamin D3) 25 25 mcg PO DAILY #90 caps 08/11/23 08/31/23 Rx mcg (1,000 unit) capsule ferrous sulfate 325 mg (65 mg 325 mg PO DAILY 90 days #90 tabs 08/11/23 08/31/23 Rx iron) tablet furosemide 20 mg tablet 20 mg PO QAM #90 tabs 08/11/23 08/31/23 Rx levothyroxine 150 mcg tablet 150 mcg PO DAILY #90 tabs 08/11/23 08/31/23 Rx lisinopril 40 mg tablet 40 mg PO DAILY #90 tabs 08/11/23 08/31/23 Rx potassium chloride 20 mEq 20 meq PO DAILY #90 tabs 08/11/23 08/31/23 Rx tablet,extended release prednisone 5 mg tablet 5 mg PO DAILY #30 tabs 08/11/23 08/31/23 Rx warfarin 5 mg tablet 5 mg PO DAILY #30 tabs 08/11/23 08/31/23 Rx Patient History Medical History (Updated 09/02/23 @ 11:06 by Emma Gibson DNP) Urinary retention Hematuria Hypothyroidism Kidney stone Social History Smoking Status: Never smoker Hx Alcohol Use: No Hx Substance Use: No Communication Ability: Effective Beliefs That Will Affect Care: None Current Living Situation: Family Feels Safe at Home: Yes Assistive Devices: Walker Review of Systems Review of Systems: All systems reviewed & are unremarkable except as noted in Subjective Physical Exam Physical Exam: Chronically ill appearing elderly male semi reclined in ED stretcher NAD Awake, alert and oriented x3 He is able to follow commands [facility] screen is neg Dtr at bedside resp effort WAL lung diminished but clear abd mild diffuse tenderness, BS+ +Fu generalized weakness skin is pale but warm Results & Data Vital Signs (Past 12 Hours) Vital Signs Pulse Pulse Resp BP Pulse Ox Pulse Ox O2 Del Method 09/02/23 07:09 67 09/02/23 07:05 93 09/02/23 02:54 63 12 103/41 L 94 Room Air 09/02/23 02:24 66 09/01/23 23:00 65 19 92 Room Air O2 Del Method 09/02/23 07:09 09/02/23 07:05 Room Air 09/02/23 02:54 09/02/23 02:24 09/01/23 23:00 Laboratory Results data reviewed Diagnostic Findings data reviewed PG Care Time/CCT Total # of Minutes Spent Total Time Spent: 135 Total Time Spent with Patient: Total time spent is greater than 50% in coordination of care (as documented) at patient's floor/unit and/or counseling patient: I spent 135 minutes overall addressing this case: 25 min in medical data review/discussion with referring provider(s) and/or preparation for the visit 20 min in direct interaction with the patient/exam 60 min in Advance Care Planning/Goals of Care discussions as detailed above in note (must be >16min) 15 min in subsequent review and synthesis of assessment and plan 15 min communicating with other providers regarding the patient's case: primary team and nursing Prolonged Care Time Prolonged Care Time: Yes Advanced Care Planning 98872 Advanced Care Planning 30 Min 74717 Advanced Care Planning Additional 30 [place] [address] IN/OBS CONSULT LVL 5,80M Patient Type New History Comprehensive Exam Comprehensive Medical Decision Making High Complexity Diagnoses Palliative care by specialist Z51.5 Advanced care planning/counseling discussion Z71.89 Weakness generalized R53.1 Nausea and vomiting, unspecified vomiting type R11.2 Vomiting type: unspecified Social isolation Z60.4 Additional Codes Advanced Care Planning - 02698 Advanced Care Planning 30 Min: 71564 Advanced Care Planning 30 Min ([id number]) Advanced Care Planning - 95113 Advanced Care Planning Additional 30 Min: 83620 Advanced Care Planning Additional 30 Min ([id number]) Prolonged Care Time - Prolonged Care Time: Yes ([id number])
[2023-09-02] MEDS ORDERED: ceFAZolin 1000MG 1,000 MG/7.5 ML SYR IV ONE (12:00)
[2023-09-02] MEDS: WARFARIN SOD 5 MG TAB PO SCH (17:41)
[2023-09-02] MEDS: ATORVASTATIN 20 MG TAB PO SCH (20:26)
[2023-09-02] MEDS: ceFAZolin 2000MG 2,000 MG/15 ML SYR IV SCH (20:26)
--- NOTE | 2023-09-02 21:05 | Hospitalist Progress Note ---
Date of Service September 02, 2023 Assessment & Plan (1) Leukocytosis: Plan: -Admit to med/tele -Currently hemodynamically stable and stable on RA -Came to the ED for ongoing nausea/vomiting since midnight -Noted to have a leukocytosis of 27 with neutrophil predominance of 21 -Is on 5 mg PO prednisone daily with his daily Zytiga for prostate cancer but would not expect his WBC to be this elevated. His WBC was also WNL while on his prednisone on CBC from 08/23 -At this time the most likely sources are UTI due to his chronic perez and pneumonia from possible aspiration with recent vomiting. -Confirmed with his nurse that his initial UA was obtained from his home perez, can't rule out contamination based on results >Will be replacing his perez on admission and will obtain repeat UA from new perez -CXR has been obtain but yet to be read, on my read he appears to have an infiltrate in the right middle/right lower lobe concerning for possible aspiration -No other sources noted at this time -S/P one dose of Zosyn in the ED -Will continue with Ceftriaxone + Flagyl to cover both UTI and possible aspiration pneumonia for now -Follow repeat UA and final chest xray read -Follow Procal ordered in the ED -Holding his 5 mg PO prednisone daily for now with acute infection, monitor BP closely, if it begins to drop would then need stress dosed steroids Secondary to UTI. Cultures are back. Patient reports feeling better. Patient appears to be clinically improving on 09/02 Will continue to monitor. (2) MC (acute kidney injury): Plan: -Cr at 1.6 today, baseline appears to be near 1.1 per labs on 08/23 -Likely prerenal due to dehydration as he appears significantly dehydrated on exam -Perez cath is draining well, no signs of obstruction on CT of the abd/pelvis -Continue IV fluids overnight, avoid nephrotoxic agents -Holding lisinopril and lasix for now with MC (3) Nausea and vomiting: Plan: -Likely due to an acute infection -CT of the abd/pelvis negative for obstruction or other acute causes -Symptoms currently under control S/P one dose of zofran -Will obtain ECG to monitor QTc and continue IV antiemetics if stable (4) Lactate blood increase: Plan: -Initial and repeat lactate are mildly elevated at 2.2 -Likely due to dehydration and acute infection -Was given 500 mL NSS in the ED -Continue IV hydration as listed in leukocytosis plan (5) Atrial fibrillation: Plan: -Currently in rate controlled afib -Is on Warfain, did not have his am dose today -INR deana continue to be monitored. -No signs of bleeding (6) Chronic indwelling Perez catheter: Plan: -Will exchange perez shortly -Monitor intake/output (7) Hypothyroidism: Plan: -Continue levothyroxine (8) Prostate cancer: Plan: -S/P Brachytherapy in 2002 -Recently established care with [facility] -Normally on daily Zytiga and Prednisone for maintenance therapy -Holding Zytiga and prednisone for now with acute infection (9) Anemia: Plan: -Hgb currently stable -Previous acute blood loss anemia due to hematuria while on Warfarin -No acute bleeding on Exam, will continue to monitor Plan Admission and Anticipated Discharge Date Admission Date: August 31, 2023 Subjective Patient reports feeling much better today. Review of Systems Review of Systems: All systems reviewed & are unremarkable except as noted in HPI & below Physical Exam Physical Exam: General: Fatigued, ill but nontoxic appearing. Awakens easily and answers questions appropriately. HEENT: Atraumatic, normocephalic. Pulm: diminished but w/o rales/crackles/wheeze. Symmetrical chest rise. No increased work of breathing. No respiratory distress. Cardiac: RRR, -mrg. Radial pulses intact and symmetrical. Abdominal: Nontender, nondistended, soft. BS present. Ext: Warm, dry. No LE edema, trace bilateral pedal edema. Results & Data Results & Data Vital Signs (Past 12 Hours) Vital Signs Pulse Pulse Resp BP BP Pulse Ox O2 Del Method 09/02/23 20:30 67 19 124/56 L 95 Room Air 09/02/23 16:10 69 09/02/23 16:00 65 15 123/58 L 95 Room Air 09/02/23 12:00 68 18 98/51 L 92 PG Care Time/CCT Total # of Minutes Spent Total Time Spent with Patient: Total time spent is greater than 50% in coordination of care (as documented) at patient's floor/unit and/or counseling patient: Coding Level of Care Code 98015 SUB INP/OBS CARE 2/35MIN Diagnoses Leukocytosis D72.829 MC (acute kidney injury) N17.9 Nausea and vomiting, unspecified vomiting type R11.2 Vomiting type: unspecified Lactate blood increase R79.89 Atrial fibrillation I48.91 Chronic indwelling Perez catheter Z97.8 Hypothyroidism E03.9 Prostate cancer C61 Anemia D64.9 Other causes of anemia: acute posthemorrhagic (3) Nausea and vomiting Vomiting type: unspecified Qualified Code(s): R11.2 - Nausea with vomiting, unspecified (9) Anemia Other causes of anemia: acute posthemorrhagic
[2023-09-03 05:35] LABS: Albumin Globulin Ratio 0.8 (0.9-2); Albumin Level 2.6 gm/dl (3.4-5.0); BUN Creatinine Ratio 28.9 (10-20); Bilirubin,Total 0.5 mg/dl (0.2-1.0); C Reactive Protein 20.31 mg/dl (0-0.5); Calcium 7.8 mg/dl (8.6-10.3); Creatinine Clr Calc Pharmacy 18.8 ml/min; Est GFR (African American) 28.6 ml/min; Est GFR (Non-African American) 24.7 ml/min; Globulin 3.2 gm/dl (2.5-4.0); Potassium 3.4 mmol/L (3.5-5.1); Total Protein 5.8 gm/dl (6.0-8.3)
[2023-09-03 05:38] LABS: Basophils # (auto) 0.02 K/uL (0.00-0.20); Basophils % (auto) 0.1 %; Hematocrit (blood only) 26.7 % (42.0-52.0); Immature Granulocytes # (auto) 0.05 K/uL (0.01-0.20); Immature Granulocytes % (auto) 0.4 %; Lymphocytes # (auto) 1.01 K/uL (1.20-3.40); Lymphocytes % (auto) 7.2 %; Mean Corpuscular Hemoglobin 29.6 pg (25.0-34.0); Mean Corpuscular Hgb Conc 33.7 g/dL (32.0-36.0); Mean Corpuscular Volume 87.8 fL (80.0-100.0); Mean Platelet Volume 12.1 fL (9.4-12.4); Monocytes # (auto) 0.84 K/uL (0.11-0.59); Neutrophils # (auto) 12.19 K/uL (1.40-6.50); Neutrophils % (auto) 86.3 %; Nucleated RBC # (auto) 0.02 K/uL (0.00-0.12); Nucleated RBC % (auto) 0.1 %; Platelet Count 316 K/uL (130-400); RDW Coefficient of Variation 14.4 % (11.5-14.5); RDW Standard Deviation 46.3 fL (36.4-46.3); Red Blood Count 3.04 M/uL (4.70-6.10); White Blood Count 14.11 K/ul (4.8-10.8)
[2023-09-03] MEDS: LEVOTHYROXINE SODIUM 150 MCG TABLET PO SCH (05:46)
[2023-09-03 05:51] LABS: Prothrombin Time 62.7 Seconds (9.0-12.0)
[2023-09-03 06:10] LABS: INR 6.4 (0.9-1.1)
[2023-09-03] MEDS ORDERED: PHYTONADIONE 2.5 MG in DEXTROSE 5% 50 ML IV ONE (08:52)
[2023-09-03] MEDS: HYDROCORTISONE SOD 20 MG in SYRINGE 0 ML IV SCH ×3 (11:00→23:03)
[2023-09-03] MEDS: MAGNESIUM OXIDE 400 MG TAB PO SCH ×2 (11:01→22:06)
[2023-09-03] MEDS: FERROUS SULFATE 325 MG TAB PO SCH (11:01)
[2023-09-03] MEDS: ceFAZolin 2000MG 2,000 MG/15 ML SYR IV SCH ×2 (11:09→22:06)
--- NOTE | 2023-09-03 13:13 | Infectious Disease Consult ---
Date of Consultation September 03, 2023 Consultation Information Consultation was provided via telemedicine using two-way real-time interactive telecommunication between the patient and the telemedicine provider. For the duration of the visit, the provider was performing the assessment from a different facility than the patient. This includesuse of bluetooth stethoscope forauscultationperformed by the telepresenter that the telemedicine provider can hear if described in the physical exam. Software Development Leader contact information: Please call [facility] [phone]. (Phone Number For Physician Use Only) After establishing a telemedicine visit, patient was: Patient was verified with two unique identifiers, Patient/authorized rep acknowledged consent and understanding and Gave permission to continue telehealth session Time Spent with Patient: Initial => 40 min History of Present Illness Reason for Consultation: Recurrent UTI Attending Physician: Luciano Meyer Allergies Allergy/AdvReac Type Severity Reaction Status Date / Time No Known Allergies Allergy Verified 08/26/23 10:30 Home Medications Medication Instructions Recorded Confirmed Type abiraterone 250 mg tablet 1,000 mg (4 x 250 mg) PO DAILY 08/11/23 08/31/23 Rx #120 tabs atorvastatin 20 mg tablet 20 mg PO QPM #90 tabs 08/11/23 08/31/23 Rx cholecalciferol (vitamin D3) 25 25 mcg PO DAILY #90 caps 08/11/23 08/31/23 Rx mcg (1,000 unit) capsule ferrous sulfate 325 mg (65 mg 325 mg PO DAILY 90 days #90 tabs 08/11/23 08/31/23 Rx iron) tablet furosemide 20 mg tablet 20 mg PO QAM #90 tabs 08/11/23 08/31/23 Rx levothyroxine 150 mcg tablet 150 mcg PO DAILY #90 tabs 08/11/23 08/31/23 Rx lisinopril 40 mg tablet 40 mg PO DAILY #90 tabs 08/11/23 08/31/23 Rx potassium chloride 20 mEq 20 meq PO DAILY #90 tabs 08/11/23 08/31/23 Rx tablet,extended release prednisone 5 mg tablet 5 mg PO DAILY #30 tabs 08/11/23 08/31/23 Rx warfarin 5 mg tablet 5 mg PO DAILY #30 tabs 08/11/23 08/31/23 Rx Patient History Medical History (Updated 09/02/23 @ 11:06 by Emma Gibson DNP) Urinary retention Hematuria Hypothyroidism Kidney stone Social History Smoking Status: Never smoker Hx Alcohol Use: No Hx Substance Use: No Communication Ability: Effective Beliefs That Will Affect Care: None Current Living Situation: Family Feels Safe at Home: Yes Assistive Devices: Walker Review of System A complete ROS was performed and is negative except as mentioned in the HPI. Results & Data Vital Signs (Past 12 Hours) Vital Signs Temp Pulse Pulse Resp BP Pulse Ox Pulse Ox 09/03/23 12:00 65 18 145/80 H 95 09/03/23 11:28 36.7 C 82 20 160/79 H 96 09/03/23 11:28 95 09/03/23 07:05 60 09/03/23 06:00 61 16 148/74 H 95 09/03/23 04:00 62 18 136/74 94 09/03/23 02:00 60 14 106/54 L 95 O2 Del Method O2 Del Method 09/03/23 12:00 Room Air 09/03/23 11:28 Room Air 09/03/23 11:28 Room Air 09/03/23 07:05 09/03/23 06:00 Room Air 09/03/23 04:00 Room Air 09/03/23 02:00 Room Air Laboratory Results Short CBC 09/03/23 Range/Units 04:51 WBC 14.11 H (4.8-10.8) K/ul Hgb 9.0 L (14.0-18.0) g/dl Hct 26.7 L (42.0-52.0) % Plt Count 316 (130-400) K/uL BMP 09/03/23 04:51 Sodium 138 Potassium 3.4 L Chloride 105 Carbon Dioxide 22 BUN 66 H Creatinine 2.28 H Glucose 188 H Calcium 7.8 L Liver Function 09/03/23 Range/Units 04:51 Total Bilirubin 0.5 (0.2-1.0) mg/dl AST 9 L (13-39) U/L ALT 4 L (7-52) U/L Alkaline Phosphatase 64 (34-104) U/L Albumin 2.6 L (3.4-5.0) gm/dl Diagnostic Findings Abdomen/Pelvis CT 08/31/23 17:37 CT SCAN OF THE ABDOMEN AND PELVIS WITHOUT IV CONTRAST CLINICAL HISTORY: Vomiting. Leukocytosis. COMPARISON STUDY: No priors. TECHNIQUE: CT scan of the abdomen and pelvis is performed from the lung bases to the proximal femora. Images are reviewed in the axial, sagittal, and coronal planes. IV contrast was not administered for this examination. Note that the examination is significantly suboptimal without oral and IV contrast. A dose lowering technique was utilized adhering to the principles of ALARA. CT DOSE: 698.93 mGy.cm FINDINGS: Lung bases: The patient is status post midline sternotomy. The heart is enlarged and without pericardial effusion. The coronary arteries are densely calcified. There is a tiny hiatal hernia. There are small pleural effusions, left larger than right with dependent atelectasis. Liver: The unenhanced liver is normal in size, contour, and attenuation. There is no intrahepatic biliary ductal dilatation. Gallbladder: Surgically absent. Spleen: The spleen is not identified and presumed surgically absent. A 3.6 cm splenule is noted below the left hemidiaphragm. Pancreas: The distal pancreas is not identified and presumed surgically absent. The pancreatic head is atrophic. Adrenal glands: Unremarkable. Kidneys: The unenhanced kidneys are atrophic and without hydronephrosis. No renal calculi are identified. Simple and complex bilateral renal cysts measure up to 4 cm. Abdominal vasculature: The abdominal aorta is normal in course and caliber noting advanced atherosclerotic calcification. Bowel: Postoperative changes suggested involving the stomach. No bowel obstruction is seen. There is moderate colonic diverticulosis without CT evidence of acute diverticulitis. The appendix is not visualized. Peritoneum: There is trace abdominopelvic ascites. No intraperitoneal free air is seen. Lymphadenopathy: There are pathologically enlarged retroperitoneal lymph nodes. A node anterior to the abdominal aorta on image #111 measures 3.4 x 1.8 cm. A left periaortic nick aggregate on image #116 measures 2.5 x 1.6 cm in aggregate dimension. Pelvic viscera: The bladder is decompressed around a Fu catheter and cannot be evaluated. The prostate gland is diminutive and heterogeneous noting brachytherapy implants in place. Skeletal structures: The skeletal structures are heterogeneously osteopenic. There is mild to moderate lumbosacral spondylosis. No lytic or blastic lesions are seen. IMPRESSION: 1. Significantly suboptimal examination without oral and IV contrast. 2. 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 Brachytherapy implants are noted in the prostate gland, as well as pathologically enlarged retroperitoneal lymph nodes which are typical for metastatic disease. Correlate with the oncological and surgical history. 3. Small pleural effusions, left larger than right. 4. Trace abdominopelvic ascites. 5. Colonic diverticulosis without CT evidence of acute diverticulitis. 6. Additional findings as above. ACT 112: Negative or not required by law. Electronically signed by: Donta Love M.D. 08/31/2023 6:51 PM Chest X-Ray 08/31/23 20:18 XR chest 1V portable HISTORY: 88 years-old Male weakness, vomiting acute weakness with nausea and vomiting COMPARISON: CT abdomen and pelvis of same day TECHNIQUE: AP view of the chest FINDINGS: Cardiac silhouette is enlarged. Median sternotomy. Trace right and small left p leural effusions with minimal bibasilar atelectasis. Pulmonary vascular congestion with interstitial coarsening. No pneumothorax. Left axillary surgical clips. The left inferior costophrenic angle is excluded from the [id number]. IMPRESSION: 1. Cardiomegaly with pulmonary vascular congestion. 2. Trace right and small left pleural effusions with mild bibasilar opacities suggestive of atelectasis. ACT 112: Negative or not required by law. The above report was generated using voice recognition software. It may contain grammatical, syntax or spelling errors. Electronically signed by: Deion Maguire M.D. 09/01/2023 6:54 AM Medications Administered Current Inpatient Medications Atorvastatin Calcium (Atorvastatin 20 Mg Tab) 20 mg PO QPM [facility] Stop: 09/30/23 22:59 Last Admin: 09/02/23 20:26 Dose: 20 mg Ferrous Sulfate (Ferrous Sulfate 325 Mg Tab) 325 mg PO DAILY [facility] Stop: 10/01/23 08:59 Last Admin: 09/03/23 11:01 Dose: 325 mg Hydrocortisone Sodium (Succinate 20 mg/ Syringe) 0.4 mls @ 4 mls/min IV Q8H [facility] Stop: 10/01/23 15:59 Last Admin: 09/03/23 11:00 Dose: 4 mls/min Cefazolin Sodium (Ancef 2000mg) 2,000 mg in 15 mls @ 3.75 mls/min IV Q12 [facility] Stop: 09/16/23 20:59 Last Admin: 09/03/23 11:09 Dose: 3.75 mls/min Levothyroxine Sodium (Levothyroxine Sodium 150 Mcg Tablet) 150 mcg PO DAILYBB [facility] Stop: 10/01/23 06:29 Last Admin: 09/03/23 05:46 Dose: 150 mcg Magnesium Oxide (Magnesium Oxide 400 Mg Tab) 400 mg PO BID [facility] Stop: 10/01/23 09:44 Last Admin: 09/03/23 11:01 Dose: 400 mg Warfarin Sodium (Warfarin Sod 5 Mg Tab) 5 mg PO DAILY@1600 [facility] Stop: 10/01/23 15:59 Last Admin: 09/02/23 17:41 Dose: 5 mg
--- NOTE | 2023-09-03 13:46 | Infectious Disease Consult ---
Date of Consultation September 03, 2023 Assessment & Plan (1) Gram-negative bacteremia: (2) Chronic indwelling Perez catheter: (3) MC (acute kidney injury): (4) Complicated UTI (urinary tract infection): Plan Micro: 09/01 UCx: NG 08/31 UCx: Kleb pneumo, E coli 08/31 BCx x2: Kleb pneumo in 4/4 bottles (urena-sensitive. S amox/clav, cipro, levo, TMP/SMX), E coli in 2/4 bottles (urena-sensitive. 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 On presentation, patient was afebrile, WBC 27.8, creatinine 1.63 (from 1.14 on 08/23), lactate 2.2, procalcitonin 13.27. CT A/P without contrast showed bladder decompressed around perez, no hydronephrosis. UA with >30 WBCs. Blood cultures and urine cultures grew Kleb pneumo and E coli, for which antibiotics were narrowed to cefazolin. Pt improving, with downtrending leukocytosis to 14.1 and improved mental status. Cr uptrending however to 2.28. Kleb pneumo and E coli bacteremia are likely 2/2 complicated UTI in the setting of chronic perez. With pt's clinical improvement, it would be reasonable to transition to PO antibiotics on discharge to complete a total 7 day course. I spoke with pt's daughter, who inquired about half-way prophylactic antibiotics. 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 He also has a history of C diff, which chronic antibiotic exposure will place him at risk of developing again. Recommendations: -Can continue cefazolin (renally-dosed) while inpatient -On discharge, can transition to cefuroxime 500 mg PO q8h if CrCl>30 (or 500 mg PO q12h if CrCl 10-29) through 09/07/23 -See above discussion. Would hold off on antibiotic prophylaxis at this time. Discussed with hospitalist. Will sign off. Please note that ID does not round or write notes over the weekend. If questions or concerns arise, please contact the Infectious Disease Call Center and ask to speak with the covering ID physician. Consultation Information This patient recommendation is based on a telemedicine consult request which was completed asynchronously through chart review and information provided by the primary physician. The patient was not seen or examined today. The evaluation is consultative in nature and all patient care and treatment decisions can either be accepted or rejected by the patient's primary hospital-based treating physician using their own independent medical judgment for their patient. Unable to see patient by video due to lack of telepresenter availability. [employer] contact information: Please call [facility] . 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 On presentation, patient afebrile, VSS (BP dropped as low as 90s/40s). Labs showed WBC 27.8, hemoglobin 10.5, creatinine 1.63 (from 1.14 on 08/23), lactate 2.2, procalcitonin 13.27. UA with over 30 WBCs. Blood cultures were collected. CT A/P without contrast showed pathologically enlarged retroperitoneal lymph nodes typical for metastatic disease, small pleural effusions, trace abdominopelvic ascites, colonic diverticulosis without diverticulitis, bladder decompressed around perez, atrophic kidneys without hydronephrosis. Pt was started on ceftriaxone. Blood cultures and urine cultures grew Kleb pneumo and E coli, for which antibiotics were narrowed to cefazolin. Perez was changed. Per my conversation with his daughter, his recurrent UTIs began back around June 2022, when he developed hematuria and was diagnosed with bladder cancer. Since then, he has been in and out of the hospital multiple times for urinary retention. In February, he was reportedly sick for 6 weeks with UTI and C diff. He was back in the hospital in June with retention issues, then in July with UTI/hematuria requiring cauterization of the bladder. I don't see a urine culture from that admission. His mental status improved yesterday. Leukocytosis has down trended to 14.11. Creatinine uptrending to 2.28. Allergies Allergy/AdvReac Type Severity Reaction Status Date / Time No Known Allergies Allergy Verified 08/26/23 10:30 Home Medications Medication Instructions Recorded Confirmed Type abiraterone 250 mg tablet 1,000 mg (4 x 250 mg) PO DAILY 08/11/23 08/31/23 Rx #120 tabs atorvastatin 20 mg tablet 20 mg PO QPM #90 tabs 08/11/23 08/31/23 Rx cholecalciferol (vitamin D3) 25 25 mcg PO DAILY #90 caps 08/11/23 08/31/23 Rx mcg (1,000 unit) capsule ferrous sulfate 325 mg (65 mg 325 mg PO DAILY 90 days #90 tabs 08/11/23 08/31/23 Rx iron) tablet furosemide 20 mg tablet 20 mg PO QAM #90 tabs 08/11/23 08/31/23 Rx levothyroxine 150 mcg tablet 150 mcg PO DAILY #90 tabs 08/11/23 08/31/23 Rx lisinopril 40 mg tablet 40 mg PO DAILY #90 tabs 08/11/23 08/31/23 Rx potassium chloride 20 mEq 20 meq PO DAILY #90 tabs 08/11/23 08/31/23 Rx tablet,extended release prednisone 5 mg tablet 5 mg PO DAILY #30 tabs 08/11/23 08/31/23 Rx warfarin 5 mg tablet 5 mg PO DAILY #30 tabs 08/11/23 08/31/23 Rx Patient History Medical History (Updated 09/03/23 @ 14:11 by Pamela Lindsey MD) Urinary retention Hematuria Hypothyroidism Kidney stone Social History Smoking Status: Never smoker Hx Alcohol Use: No Hx Substance Use: No Communication Ability: Effective Beliefs That Will Affect Care: None Current Living Situation: Family Feels Safe at Home: Yes Assistive Devices: Walker Review of System pt not seen Physical Exam Physical Exam: pt not seen Results & Data Vital Signs (Past 12 Hours) Vital Signs Temp Pulse Pulse Resp BP Pulse Ox Pulse Ox 09/03/23 12:00 65 18 145/80 H 95 09/03/23 11:28 36.7 C 82 20 160/79 H 96 09/03/23 11:28 95 09/03/23 07:05 60 09/03/23 06:00 61 16 148/74 H 95 09/03/23 04:00 62 18 136/74 94 09/03/23 02:00 60 14 106/54 L 95 O2 Del Method O2 Del Method 09/03/23 12:00 Room Air 09/03/23 11:28 Room Air 09/03/23 11:28 Room Air 09/03/23 07:05 09/03/23 06:00 Room Air 09/03/23 04:00 Room Air 09/03/23 02:00 Room Air Laboratory Results Short CBC 09/03/23 Range/Units 04:51 WBC 14.11 H (4.8-10.8) K/ul Hgb 9.0 L (14.0-18.0) g/dl Hct 26.7 L (42.0-52.0) % Plt Count 316 (130-400) K/uL BMP 09/03/23 04:51 Sodium 138 Potassium 3.4 L Chloride 105 Carbon Dioxide 22 BUN 66 H Creatinine 2.28 H Glucose 188 H Calcium 7.8 L Liver Function 09/03/23 Range/Units 04:51 Total Bilirubin 0.5 (0.2-1.0) mg/dl AST 9 L (13-39) U/L ALT 4 L (7-52) U/L Alkaline Phosphatase 64 (34-104) U/L Albumin 2.6 L (3.4-5.0) gm/dl Diagnostic Findings Abdomen/Pelvis CT 08/31/23 17:37 CT SCAN OF THE ABDOMEN AND PELVIS WITHOUT IV CONTRAST CLINICAL HISTORY: Vomiting. Leukocytosis. COMPARISON STUDY: No priors. TECHNIQUE: CT scan of the abdomen and pelvis is performed from the lung bases to the proximal femora. Images are reviewed in the axial, sagittal, and coronal planes. IV contrast was not administered for this examination. Note that the examination is significantly suboptimal without oral and IV contrast. A dose lowering technique was utilized adhering to the principles of ALARA. CT DOSE: 698.93 mGy.cm FINDINGS: Lung bases: The patient is status post midline sternotomy. The heart is enlarged and without pericardial effusion. The coronary arteries are densely calcified. There is a tiny hiatal hernia. There are small pleural effusions, left larger than right with dependent atelectasis. Liver: The unenhanced liver is normal in size, contour, and attenuation. There is no intrahepatic biliary ductal dilatation. Gallbladder: Surgically absent. Spleen: The spleen is not identified and presumed surgically absent. A 3.6 cm splenule is noted below the left hemidiaphragm. Pancreas: The distal pancreas is not identified and presumed surgically absent. The pancreatic head is atrophic. Adrenal glands: Unremarkable. Kidneys: The unenhanced kidneys are atrophic and without hydronephrosis. No renal calculi are identified. Simple and complex bilateral renal cysts measure up to 4 cm. Abdominal vasculature: The abdominal aorta is normal in course and caliber noting advanced atherosclerotic calcification. Bowel: Postoperative changes suggested involving the stomach. No bowel obstr uction is seen. There is moderate colonic diverticulosis without CT evidence of acute diverticulitis. The appendix is not visualized. Peritoneum: There is trace abdominopelvic ascites. No intraperitoneal free air is seen. Lymphadenopathy: There are pathologically enlarged retroperitoneal lymph nodes. A node anterior to the abdominal aorta on image #111 measures 3.4 x 1.8 cm. A left periaortic nick aggregate on image #116 measures 2.5 x 1.6 cm in aggregate dimension. Pelvic viscera: The bladder is decompressed around a Perez catheter and cannot be evaluated. The prostate gland is diminutive and heterogeneous noting brachytherapy implants in place. Skeletal structures: The skeletal structures are heterogeneously osteopenic. There is mild to moderate lumbosacral spondylosis. No lytic or blastic lesions are seen. IMPRESSION: 1. Significantly suboptimal examination without oral and IV contrast. 2. 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 Brachytherapy implants are noted in the prostate gland, as well as pathologically enlarged retroperitoneal lymph nodes which are typical for metastatic disease. Correlate with the oncological and surgical history. 3. Small pleural effusions, left larger than right. 4. Trace abdominopelvic ascites. 5. Colonic diverticulosis without CT evidence of acute diverticulitis. 6. Additional findings as above. ACT 112: Negative or not required by law. Electronically signed by: Donta Love M.D. 08/31/2023 6:51 PM Chest X-Ray 08/31/23 20:18 XR chest 1V portable HISTORY: 88 years-old Male weakness, vomiting acute weakness with nausea and vomiting COMPARISON: CT abdomen and pelvis of same day TECHNIQUE: AP view of the chest FINDINGS: Cardiac silhouette is enlarged. Median sternotomy. Trace right and small left pleural effusions with minimal bibasilar atelectasis. Pulmonary vascular congestion with interstitial coarsening. No pneumothorax. Left axillary surgical clips. The left inferior costophrenic angle is excluded from the [id number]. IMPRESSION: 1. Cardiomegaly with pulmonary vascular congestion. 2. Trace right and small left pleural effusions with mild bibasilar opacities suggestive of atelectasis. ACT 112: Negative or not required by law. The above report was generated using voice recognition software. It may contain grammatical, syntax or spelling errors. Electronically signed by: Deion Maguire M.D. 09/01/2023 6:54 AM Medications Administered Current Inpatient Medications Atorvastatin Calcium (Atorvastatin 20 Mg Tab) 20 mg PO QPM [facility] Stop: 09/30/23 22:59 Last Admin: 09/02/23 20:26 Dose: 20 mg Ferrous Sulfate (Ferrous Sulfate 325 Mg Tab) 325 mg PO DAILY [facility] Stop: 10/01/23 08:59 Last Admin: 09/03/23 11:01 Dose: 325 mg Hydrocortisone Sodium (Succinate 20 mg/ Syringe) 0.4 mls @ 4 mls/min IV Q8H [facility] Stop: 10/01/23 15:59 Last Admin: 09/03/23 11:00 Dose: 4 mls/min Cefazolin Sodium (Ancef 2000mg) 2,000 mg in 15 mls @ 3.75 mls/min IV Q12 [facility] Stop: 09/16/23 20:59 Last Admin: 09/03/23 11:09 Dose: 3.75 mls/min Levothyroxine Sodium (Levothyroxine Sodium 150 Mcg Tablet) 150 mcg PO DAILYBB [facility] Stop: 10/01/23 06:29 Last Admin: 09/03/23 05:46 Dose: 150 mcg Magnesium Oxide (Magnesium Oxide 400 Mg Tab) 400 mg PO BID [facility] Stop: 10/01/23 09:44 Last Admin: 09/03/23 11:01 Dose: 400 mg Warfarin Sodium (Warfarin Sod 5 Mg Tab) 5 mg PO DAILY@1600 [facility] Stop: 10/01/23 15:59 Last Admin: 09/02/23 17:41 Dose: 5 mg
[2023-09-03] MEDS ORDERED: LIDOCAINE 2% JELLY 5 ML TUBE EXT ONE ×2 (19:59→20:43)
--- NOTE | 2023-09-03 21:30 | Hospitalist Progress Note ---
Date of Service September 03, 2023 Assessment & Plan (1) Leukocytosis: Plan: -Admit to med/tele -Currently hemodynamically stable and stable on RA -Came to the ED for ongoing nausea/vomiting since midnight -Noted to have a leukocytosis of 27 with neutrophil predominance of 21 -Is on 5 mg PO prednisone daily with his daily Zytiga for prostate cancer but would not expect his WBC to be this elevated. His WBC was also WNL while on his prednisone on CBC from 08/23 -At this time the most likely sources are UTI due to his chronic perez and pneumonia from possible aspiration with recent vomiting. -Confirmed with his nurse that his initial UA was obtained from his home perez, can't rule out contamination based on results >Will be replacing his perez on admission and will obtain repeat UA from new perez -CXR has been obtain but yet to be read, on my read he appears to have an infiltrate in the right middle/right lower lobe concerning for possible aspiration -No other sources noted at this time -S/P one dose of Zosyn in the ED -Will continue with Ceftriaxone + Flagyl to cover both UTI and possible aspiration pneumonia for now -Follow repeat UA and final chest xray read -Follow Procal ordered in the ED -Holding his 5 mg PO prednisone daily for now with acute infection, monitor BP closely, if it begins to drop would then need stress dosed steroids Secondary to UTI. Cultures are back. Patient reports feeling better. Patient appears to be clinically improving on 09/02-09/03 Anticipate discharge in 24-48 hours. (2) MC (acute kidney injury): Plan: -Cr at 1.6 today, baseline appears to be near 1.1 per labs on 08/23 -Likely prerenal due to dehydration as he appears significantly dehydrated on exam -Perez cath is draining well, no signs of obstruction on CT of the abd/pelvis -Continue IV fluids overnight, avoid nephrotoxic agents -Holding lisinopril and lasix for now with MC (3) Nausea and vomiting: Plan: -Likely due to an acute infection -CT of the abd/pelvis negative for obstruction or other acute causes -Symptoms currently under control S/P one dose of zofran -Will obtain ECG to monitor QTc and continue IV antiemetics if stable (4) Lactate blood increase: Plan: -Initial and repeat lactate are mildly elevated at 2.2 -Likely due to dehydration and acute infection -Was given 500 mL NSS in the ED -Continue IV hydration as listed in leukocytosis plan (5) Atrial fibrillation: Plan: -Currently in rate controlled afib -Is on Warfain, did not have his am dose today -INR deana continue to be monitored. -No signs of bleeding (6) Chronic indwelling Perez catheter: Plan: -Will exchange perez shortly -Monitor intake/output (7) Hypothyroidism: Plan: -Continue levothyroxine (8) Prostate cancer: Plan: -S/P Brachytherapy in 2002 -Recently established care with [facility] -Normally on daily Zytiga and Prednisone for maintenance therapy -Holding Zytiga and prednisone for now with acute infection (9) Anemia: Plan: -Hgb currently stable -Previous acute blood loss anemia due to hematuria while on Warfarin -No acute bleeding on Exam, will continue to monitor Plan Admission and Anticipated Discharge Date Admission Date: August 31, 2023 Subjective 88 yo male reports no new symptoms. He reports feeling much better. Review of Systems Review of Systems: All systems reviewed & are unremarkable except as noted in HPI & below Physical Exam Physical Exam: General: NAD. HEENT: Atraumatic, normocephalic. Pulm: diminished but w/o rales/crackles/wheeze. Symmetrical chest rise. No increased work of breathing. No respiratory distress. Cardiac: RRR, -mrg. Radial pulses intact and symmetrical. Abdominal: Nontender, nondistended, soft. BS present. Ext: Warm, dry. No LE edema, trace bilateral pedal edema. Results & Data Results & Data Vital Signs (Past 12 Hours) Vital Signs Temp Pulse Pulse Resp BP BP Pulse Ox 09/03/23 16:51 61 09/03/23 16:00 65 21 153/79 H 91 09/03/23 12:00 65 18 145/80 H 95 09/03/23 11:28 36.7 C 82 20 160/79 H 96 09/03/23 11:28 Pulse Ox O2 Del Method O2 Del Method 09/03/23 16:51 09/03/23 16:00 Room Air 09/03/23 12:00 Room Air 09/03/23 11:28 Room Air 09/03/23 11:28 95 Room Air PG Care Time/CCT Total # of Minutes Spent Total Time Spent with Patient: Total time spent is greater than 50% in coordination of care (as documented) at patient's floor/unit and/or counseling patient: Coding Level of Care Code 64611 SUB INP/OBS CARE 2/35MIN Diagnoses Leukocytosis D72.829 MC (acute kidney injury) N17.9 Nausea and vomiting, unspecified vomiting type R11.2 Vomiting type: unspecified Lactate blood increase R79.89 Atrial fibrillation I48.91 Chronic indwelling Perez catheter Z97.8 Hypothyroidism E03.9 Prostate cancer C61 Anemia D64.9 Other causes of anemia: acute posthemorrhagic (3) Nausea and vomiting Vomiting type: unspecified Qualified Code(s): R11.2 - Nausea with vomiting, unspecified (9) Anemia Other causes of anemia: acute posthemorrhagic
[2023-09-03] MEDS: ATORVASTATIN 20 MG TAB PO SCH (22:06)
[2023-09-04 05:40] LABS: BUN Creatinine Ratio 36.2 (10-20); C Reactive Protein 11.42 mg/dl (0-0.5); Creatinine Clr Calc Pharmacy 22.7 ml/min; Est GFR (African American) 36.1 ml/min; Est GFR (Non-African American) 31.2 ml/min; Potassium 3.3 mmol/L (3.5-5.1)
[2023-09-04] MEDS: LEVOTHYROXINE SODIUM 150 MCG TABLET PO SCH (05:46)
[2023-09-04 05:53] LABS: Hematocrit (blood only) 27.1 % (42.0-52.0); Hemoglobin 9.4 g/dl (14.0-18.0); Mean Corpuscular Hemoglobin 29.8 pg (25.0-34.0); Mean Corpuscular Hgb Conc 34.7 g/dL (32.0-36.0); Mean Platelet Volume 12.2 fL (9.4-12.4); Nucleated RBC # (auto) 0.02 K/uL (0.00-0.12); Nucleated RBC % (auto) 0.2 %; Platelet Count 319 K/uL (130-400); RDW Coefficient of Variation 15.1 % (11.5-14.5); RDW Standard Deviation 47.6 fL (36.4-46.3); Red Blood Count 3.15 M/uL (4.70-6.10); White Blood Count 10.63 K/ul (4.8-10.8)
[2023-09-04 05:55] LABS: INR 1.5 (0.9-1.1); Prothrombin Time 15.6 Seconds (9.0-12.0)
[2023-09-04] MEDS: HYDROCORTISONE SOD 20 MG in SYRINGE 0 ML IV SCH (10:40)
[2023-09-04] MEDS: FERROUS SULFATE 325 MG TAB PO SCH (10:40)
[2023-09-04] MEDS: MAGNESIUM OXIDE 400 MG TAB PO SCH (10:41)
[2023-09-04] MEDS: ceFAZolin 2000MG 2,000 MG/15 ML SYR IV SCH (11:15)
[2023-09-04] MEDS ORDERED: POTASSIUM CHLORIDE CRTAB 20 MEQ TABCR PO STA (13:59)
--- NOTE | 2023-09-04 16:11 | Discharge Summary ---
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 He was noted to have soft BP's on arrival at 103/46 but was otherwise stable. Labs were significant for a leukocytosis of 27 with neutrophil predominance of 21, INR of 1.8, Cr of 1.63 (baseline is near 1.1), initial lactate of 2.2, total bili of 1.2 with other LFT's WNL, UA concerning for possible infection, and covid 19/Influenza/RSV negative. CT of the abd/pelvis wo con was read as "1. Significantly suboptimal examination without oral and IV contrast. 2. 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 Brachytherapy implants are noted in the prostate gland, as well as pathologically enlarged retroperitoneal lymph nodes which are typical for metastatic disease. Correlate with the oncological and surgical history. 3. Small pleural effusions, left larger than right. 4. Trace abdominopelvic ascites. 5. Colonic diverticulosis without CT evidence of acute diverticulitis. 6. Additional findings as above.". Prior to admission the patient was given 500 mL NSS, a dose of Zosyn, and 4 mg IV zofran. At the time of the exam the patient was lying in bed in no acute distress with his Daughter sitting bedside, history was obtained from both. They state that he recently established care with [facility] as he moved from [place] to live with his daughter. His perez catheter was exchanged by Urology in the Clinic on 08/26. He had been in his normal state of health recently but developed acute onset of non-bloody emesis which started at approximately midnight. He had been eating and drinking well prior to this. They state that he had poor oral intake since but denies recent fever. He was unable to take his night meds last night or am meds today due to his symptoms. They clarify that he takes 5 mg PO prednisone daily with his daily abiraterone for prostate cancer to prevent swelling in the BL feet. He states that his symptoms are improved after initial treatment in the ED. He is a full code and wishes for his Daughter to make medical decisions for him if he cannot make them himself. Please refer to Dr. Wills's attestation for any changes to the treatment Principal Diagnosis complicated UTI Discharge Exam General: NAD. HEENT: Atraumatic, normocephalic. Pulm: diminished but w/o rales/crackles/wheeze. Symmetrical chest rise. No increased work of breathing. No respiratory distress. Cardiac: RRR, -mrg. Radial pulses intact and symmetrical. Abdominal: Nontender, nondistended, soft. BS present. Ext: Warm, dry. No LE edema, trace bilateral pedal edema. Discharge Data Allergies Allergy/AdvReac Type Severity Reaction Status Date / Time No Known Allergies Allergy Verified 08/26/23 10:30 Consultations 08/31/23 19:17 ED Decision to Admit Stat 09/01/23 16:43 Consult Palliative Care Routine 09/03/23 12:42 Consult Infectious Diseases Routine Ordered Studies 08/31/23 17:37 CT abd pelvis wo con Stat Hospital Course (1) Leukocytosis: -Admit to med/tele -Currently hemodynamically stable and stable on RA -Came to the ED for ongoing nausea/vomiting since midnight -Noted to have a leukocytosis of 27 with neutrophil predominance of 21 -Is on 5 mg PO prednisone daily with his daily Zytiga for prostate cancer but would not expect his WBC to be this elevated. His WBC was also WNL while on his prednisone on CBC from 08/23 This was secondary to a complicated UTI with bacteremia. Likely due to chronic perez, perez was replaced. CUltures showed pansensitive klebsiella and E. coli -Holding his 5 mg PO prednisone daily for now with acute infection, monitor BP closely, if it begins to drop would then need stress dosed steroids On discharge, will transition to cefuroxime 500 mg PO q8h if CrCl>30 (or 500 mg PO q12h if CrCl 10-29) through 09/07/23 will resume steroids on 09/08/23 (2) MC (acute kidney injury): -Cr at 1.6 today, baseline appears to be near 1.1 per labs on 08/23 -Likely prerenal due to dehydration as he appears significantly dehydrated on exam -Perez cath is draining well, no signs of obstruction on CT of the abd/pelvis -Continue IV fluids overnight, avoid nephrotoxic agents -Holding lisinopril and lasix for now with MC Improving blood work, will defer to outpatient followup with PCP. (3) Nausea and vomiting: -Likely due to an acute infection -CT of the abd/pelvis negative for obstruction or other acute causes -Symptoms currently under control S/P one dose of zofran (4) Lactate blood increase: -Initial and repeat lactate are mildly elevated at 2.2 -Likely due to dehydration and acute infection -Was given 500 mL NSS in the ED -Continue IV hydration as listed in leukocytosis plan (5) Atrial fibrillation: -Currently in rate controlled afib -Is on Warfain, did not have his am dose today -INR deana continue to be monitored. -No signs of bleeding (6) Chronic indwelling Perez catheter: exchanged perez catheter on 10/04 (7) Hypothyroidism: -Continue levothyroxine (8) Prostate cancer: -S/P Brachytherapy in 2002 -Recently established care with [facility] -Normally on daily Zytiga and Prednisone for maintenance therapy -Holding Zytiga and prednisone for now with acute infection (9) Anemia: -Hgb currently stable -Previous acute blood loss anemia due to hematuria while on Warfarin -No acute bleeding on Exam, will continue to monitor Plan Total Time Total Time Spent Total Time Spent (In Minutes): 32 Discharge Plan Discharge Items Reason For Visit: GENERALIZED WEAKNESS,UTI,URINARY RETENTION,MC Follow-up/Referrals: Sudheer Buchanan DO [Primary Care Provider] - Medications and DC Order Prescriptions: No Action atorvastatin 20 mg tablet 20 mg PO QPM Qty: 90 3RF furosemide 20 mg tablet 20 mg PO QAM Qty: 90 3RF levothyroxine 150 mcg tablet 150 mcg PO DAILY Qty: 90 3RF lisinopril 40 mg tablet 40 mg PO DAILY Qty: 90 3RF potassium chloride 20 mEq tablet extended release 20 meq PO DAILY Qty: 90 3RF ferrous sulfate 325 mg (65 mg iron) tablet 325 mg PO DAILY 90 Days Qty: 90 3RF cholecalciferol (vitamin D3) 25 mcg (1,000 unit) capsule 25 mcg PO DAILY Qty: 90 3RF abiraterone 250 mg tablet 1,000 mg PO DAILY Qty: 120 2RF Rx Instructions: must be taken on empty stomach, at least 1 hr before or 2 hrs after a meal/food prednisone 5 mg tablet 5 mg PO DAILY Qty: 30 0RF warfarin 5 mg tablet 5 mg PO DAILY Qty: 30 2RF Protocol: Dose Management Condition: Wednesday Dose/Route: 5 mg Instruction: 1 x 5 mg tablet Condition: Wednesday Dose/Route: 5 mg Instruction: 1 x 5 mg tablet Condition: Wednesday Dose/Route: 5 mg Instruction: 1 x 5 mg tablet Condition: Wednesday Dose/Route: 5 mg Instruction: 1 x 5 mg tablet Condition: Dose/Route: 5 mg Instruction: 1 x 5 mg tablet Condition: Wednesday Dose/Route: 5 mg Instruction: 1 x 5 mg tablet Condition: Wednesday Dose/Route: 5 mg Instruction: 1 x 5 mg tablet Protocol Text: Adjustment Start Date: Wednesday08/24/23 INR Value: 1.0 INR Date: 08/23/23 Recheck Date: 08/31/23 Admission Data Admit Date/Time: 08/31/23 19:50 Attending Provider: Luciano Meyer Admit Provider: Milan Ray Primary Care Provider: Sudheer Buchanan Other Providers: Rebekah Wills; Emma Gibson; Ashley Gomez; Pamela Lindsey; Erin Willoughby; Aretha Trevizo; Carmen Carrera; Yoel Downs; Juliann Perez; Melida Dennis Coding Level of Care Code 87949 INP/OBS DISCH >30 MIN Diagnoses Leukocytosis D72.829 MC (acute kidney injury) N17.9 Nausea and vomiting, unspecified vomiting type R11.2 Vomiting type: unspecified Lactate blood increase R79.89 Atrial fibrillation I48.91 Chronic indwelling Perez catheter Z97.8 Hypothyroidism E03.9 Prostate cancer C61 Anemia D64.9 Other causes of anemia: acute posthemorrhagic
--- NOTE | 2023-09-09 12:05 | Coding Query ---
To promote full compliance with coding requirements relating to patient care, provider participation is requested in all cases of certified professional coder uncertainty. Please assist us with the question(s) below: Coding Question(s): The diagnosis below was documented in the record, then subsequently fell off all further documentation. Please indicate if it is still a possible diagnosis or ruled out. Physician's Response(s): SEPSIS (documented on the 09/01 Hospitalist Progress Note) ( x ) Diagnosed and POA ( ) Diagnosed and not POA ( ) Ruled out ( ) Other (please specify) POSSIBLE ASPIRATION PNEUMONIA (documented on H&P and through the 09/03 Hospitalist Progress Note) ( ) Diagnosed and POA ( ) Diagnosed and not POA ( x ) Ruled out ( ) Other (please specify) MTDD
== END 2023-09-04 17:21 | disposition home health service (06) | DRG 698 ==
LOC: ED 14:39 → EDINP 22:49 → SUATTDRO 22:49 → EDINP 23:01

== ENCOUNTER 2023-09-16 11:08 | Inpatient (IN) ==
[2023-09-16] MEDS ORDERED: SODIUM CHLORIDE 0.9% 1,000 ML IV SCH (11:15)
[2023-09-16 12:11] LABS: Basophils # (auto) 0.08 K/uL (0.00-0.20); Basophils % (auto) 0.4 %; Eosinophils # (auto) 0.03 K/uL (0.00-0.50); Eosinophils % (auto) 0.2 %; Hematocrit (blood only) 27.4 % (42.0-52.0); Immature Granulocytes % (auto) 0.5 %; Lymphocytes # (auto) 2.18 K/uL (1.20-3.40); Lymphocytes % (auto) 10.9 %; Mean Corpuscular Hemoglobin 28.6 pg (25.0-34.0); Mean Corpuscular Hgb Conc 32.8 g/dL (32.0-36.0); Mean Platelet Volume 12.8 fL (9.4-12.4); Monocytes # (auto) 2.45 K/uL (0.11-0.59); Monocytes % (auto) 12.3 %; Neutrophils # (auto) 15.15 K/uL (1.40-6.50); Neutrophils % (auto) 75.7 %; Platelet Count 443 K/uL (130-400); RDW Standard Deviation 50.4 fL (36.4-46.3); Red Blood Count 3.15 M/uL (4.70-6.10); White Blood Count 19.99 K/ul (4.8-10.8)
--- NOTE | 2023-09-16 12:23 | Emergency Department Note ---
Impression & Plan Weakness, Leukocytosis, Diarrhea, Acute hypokalemia, Acute UTI (urinary tract infection), Non-ST elevation MS (NSTEMI) ED Provider Note HISTORY OF PRESENT ILLNESS: Patient is an 88-year-old male presenting with diarrhea and general malaise. Daughter helps provide history. Reports that the patient has a history of bladder cancer and was in the hospital for weeks back and the summer 2022. He reportedly has required cauterization and cryotherapy of his bladder secondary to bleeding vessels. He recently moved up to live with his daughter. He has a chronic Fu catheter in place and it got clogged up 4 days ago and so they went to the urologist office to have it flushed. He has had some blood-tinged urine in his Fu bag in the last few days. Daughter reports that the patient has had intermittent fevers in the last 48 hours. States the patient has had 4- 6 episodes of loose diarrhea over the last 4 days. Patient denies any abdominal pain. Denies any chest pain or shortness of breath. Daughter reports that the patient has had very little oral intake in the last 48 hours. Reports that he has had maybe 4 ounces of water in the last 48 hours secondary to having no appetite. Daughter reports the patient has had a significant decline in his ambulatory function in the last few weeks. Reports that he now ambulates with a walker and gets up for meals and that is about it. ROS: as above PHYSICAL EXAM: Constitutional: Patient appears in no acute distress. HENT: Head: Normocephalic and atraumatic. Eyes: EOMI, PERRL Mouth/Throat: Mucous membranes moist. Neck: Trachea midline. Neck supple. Cardiovascular: Irregular rhythm. No murmurs, rubs or gallops. Intact distal pulses. Pulmonary/Chest: No respiratory distress. Breath sounds clear and equal bilaterally. No wheezes or rales. Abdominal: Abdomen soft, no tenderness, rebound or guarding. Musculoskeletal: No edema, tenderness or deformity noted. Skin: Warm and dry. No rash, erythema, pallor or cyanosis Neurological: Alert and keenly responsive. CN II-XII grossly intact, moving all extremities equally and fully. MDM: - Vitals signs showed hypertension. - History obtained via patient and patient's daughter. Patient presents with diarrhea and general malaise. Daughter reports that the patient has been having progressive decline in the last week or so. Reports has been having loose diarrhea over the last 4 days. He has a previous history of C. difficile. Denies any chest pain or shortness of breath. Denies any abdominal pain. He has had poor oral intake in the last 48 hours. Daughter reports he gets around with a walker at home but has been minimally active since discharge from the hospital. - Chronic conditions affecting care: bladder cancer; hypothyroidism - Differential diagnoses include, but are not limited to: UTI; pneumonia; ACS; bacteremia; viral syndrome - Order placed for continuous cardiac monitoring. At this time, monitor showed rate of 71 bpm with irregular rhythm, per my interpretation. - External medical records reviewed. Discharge summary dated 09/04/2023 was reviewed. Patient was admitted to the hospital for UTI with bacteremia. He was found to have pansensitive Klebsiella and E. coli in his urine. - EKG interpreted by myself showed atrial fibrillation. Rate 73 bpm. QTc 522. No acute ischemic changes. Noted to have a right bundle branch block. - Laboratory workup interpreted by myself showed leukocytosis (WBC 19.99) with left shift; normal lactate; hypokalemia (K 2.9); CKD (but improved from previous MC); normal magnesium; elevated troponin (29.2); normal procalcitonin - Blood cultures obtained - Viral respiratory panel negative - CXR showed cardiomegaly, per my interpretation. Noted to have bilateral airspace opacities concerning for pulmonary edema. - UA showed evidence of infection. - Patient given 1L NS and 20 mEq IV potassium in ER. Given IV rocephin for UTI. - NSTEMI likely type II in nature, given no chest pain history. - Weakness and malaise likely secondary to UTI and electrolyte abnormality. - Discussion was had with personal care aide about patient's case and need for admission - Hospitalist consulted for admission - [facility] ASSESSMENT AND PLAN: Diagnosis: weakness; diarrhea; UTI; hypokalemia; NSTEMI Plan: admit Past Med/Surg History Medical History (Updated 09/16/23 @ 16:07 by Mary Warren MD) Urinary retention Hematuria Hypothyroidism Kidney stone Social History Smoking Status: Never smoker Hx Alcohol Use: No Hx Substance Use: No Preferred Language: [place] Communication Ability: Effective Beliefs That Will Affect Care: None Current Living Situation: Family Feels Safe at Home: Yes Assistive Devices: Walker Allergies Allergies Allergy/AdvReac Type Severity Reaction Status Date / Time No Known Allergies Allergy Verified 09/16/23 13:26 Home Meds Previous Rx's Medication Instructions Recorded abiraterone 250 mg tablet 1,000 mg (4 x 250 mg) PO DAILY 08/11/23 #120 tabs atorvastatin 20 mg tablet 20 mg PO QPM #90 tabs 08/11/23 cholecalciferol (vitamin D3) 25 25 mcg PO DAILY #90 caps 08/11/23 mcg (1,000 unit) capsule ferrous sulfate 325 mg (65 mg 325 mg PO DAILY 90 days #90 tabs 08/11/23 iron) tablet levothyroxine 150 mcg tablet 150 mcg PO DAILY #90 tabs 08/11/23 prednisone 5 mg tablet 5 mg PO DAILY #30 tabs 08/11/23 warfarin 5 mg tablet 5 mg PO DAILY #30 tabs 08/11/23 Results & Data (ED) Vital Signs Vital Signs - 24 hr 09/16/23 11:13 09/16/23 11:15 09/16/23 12:34 Temperature 37.0 C Temperature Source Oral Pulse Rate 70 78 67 Pulse Rate from SpO2 Sensor Pulse Rhythm Regular Respiratory Rate 20 20 Blood Pressure 155/67 H Blood Pressure Mean 96 Pulse Oximetry 97 94 Oxygen Delivery Method Room Air Room Air Sepsis Recent Fever Within 48 Hours Yes Sepsis New/Unexplained Change in Mental Status N/A Sepsis Action Taken by Nursing No Action Required 09/16/23 12:34 09/16/23 13:00 09/16/23 13:00 Temperature Temperature Source Pulse Rate 65 66 Pulse Rate from SpO2 Sensor 66 65 Pulse Rhythm Respiratory Rate 19 15 Blood Pressure 163/74 H Blood Pressure Mean 125 Pulse Oximetry 97 96 Oxygen Delivery Method Sepsis Recent Fever Within 48 Hours Sepsis New/Unexplained Change in Mental Status Sepsis Action Taken by Nursing 09/16/23 13:30 09/16/23 13:30 09/16/23 14:00 Temperature Temperature Source Pulse Rate 67 68 Pulse Rate from SpO2 Sensor 68 68 Pulse Rhythm Respiratory Rate 14 20 Blood Pressure 159/70 H Blood Pressure Mean 117 Pulse Oximetry 97 96 Oxygen Delivery Method Sepsis Recent Fever Within 48 Hours Sepsis New/Unexplained Change in Mental Status Sepsis Action Taken by Nursing 09/16/23 14:00 09/16/23 14:30 09/16/23 14:30 Temperature Temperature Source Pulse Rate 71 Pulse Rate from SpO2 Sensor Pulse Rhythm Respiratory Rate 12 Blood Pressure 146/65 H 158/75 H Blood Pressure Mean 109 107 Pulse Oximetry Oxygen Delivery Method Sepsis Recent Fever Within 48 Hours Sepsis New/Unexplained Change in Mental Status Sepsis Action Taken by Nursing Laboratory Data 09/16/23 11:28 09/16/23 11:28 Lab Results 09/16/23 09/16/23 09/16/23 Range/Units 11:28 12: 12:43 WBC 19.99 H (4.8-10.8) K/ul RBC 3.15 L (4.70-6.10) M/uL Hgb 9.0 L (14.0-18.0) g/dl Hct 27.4 L (42.0-52.0) % MCV 87.0 (80.0-100.0) fL MCH 28.6 (25.0-34.0) pg MCHC 32.8 (32.0-36.0) g/dL RDW Std Deviation 50.4 H (36.4-46.3) fL RDW Coeff of Brittany 16.0 H (11.5-14.5) % Plt Count 443 H (130-400) K/uL MPV 12.8 H (9.4-12.4) fL Immature Gran % (Auto) 0.5 % Neut % (Auto) 75.7 % Lymph % (Auto) 10.9 % Nobles % (Auto) 12.3 % Eos % (Auto) 0.2 % Baso % (Auto) 0.4 % Neut # (Auto) 15.15 H (1.40-6.50) K/uL Lymph # (Auto) 2.18 (1.20-3.40) K/uL Nobles # (Auto) 2.45 H (0.11-0.59) K/uL Eos # (Auto) 0.03 (0.00-0.50) K/uL Baso # (Auto) 0.08 (0.00-0.20) K/uL Immature Gran # (Auto) 0.10 (0.01-0.20) K/uL PT 19.9 H (9.0-12.0) Seconds INR 1.9 H (0.9-1.1) Sodium 140 (136-145) mmol/L Potassium 2.9 L (3.5-5.1) mmol/L Chloride 109 H (98-107) mmol/L Carbon Dioxide 21 (21-32) mmol/L Anion Gap 10 (3-11) BUN 25 H (6-23) mg/dl Creatinine 1.42 H (0.6-1.4) mg/dl Est Cr Clr Drug Dosing Not Reportable Est GFR ( Amer) 50.7 ml/min Est GFR (Non-Af Amer) 43.8 ml/min BUN/Creatinine Ratio 17.6 (10-20) Glucose 80 (70-99(Fasting)) mg/dl Lactate 1.1 (0.4-2.0) mmol/L Calcium 8.3 L (8.6-10.3) mg/dl Magnesium 1.8 (1.7-2.4) mg/dl Total Bilirubin 1.2 H (0.2-1.0) mg/dl AST 9 L (13-39) U/L ALT 3 L (7-52) U/L Alkaline Phosphatase 87 (34-104) U/L Troponin I High Sens 29.2 H (0-20) pg/ml Total Protein 6.7 (6.0-8.3) gm/dl Albumin 2.9 L (3.4-5.0) gm/dl Globulin 3.8 (2.5-4.0) gm/dl Albumin/Globulin Ratio 0.8 L (0.9-2) Procalcitonin 0.15 (0-0.5) ng/ml Urine Color Urine Appearance (Clear) Urine pH (4.5-7.5) Ur Specific [place] (1.000-1.030) Urine Protein (Negative) Urine Glucose (UA) (Negative) Urine Ketones (Negative) Urine Blood (Negative) Urine Nitrite (Negative) Urine Bilirubin (Negative) Urine Urobilinogen (Negative) Ur Leukocyte Esterase (Negative) Adenovirus (PCR) Not Detected (NotDetected) B. pertussis DNA (PCR) Not Detected (NotDetected) B.parapertussis DNA PCR Not Detected (NotDetected) C. pneumoniae DNA (PCR) Not Detected (NotDetected) Coronavirus OC43 (PCR) Not Detected (NotDetected) Coronavirus HKU1 (PCR) Not Detected (NotDetected) Coronavirus 229E (PCR) Not Detected (NotDetected) SARS-CoV-2 (PCR) Not Detected (NotDetected) Coronavirus NL63 (PCR) Not Detected (NotDetected) Human Metapneumovir PCR Not Detected (NotDetected) Influenza Type A (PCR) Not Detected (NotDetected) Influenza Type B (PCR) Not Detected (NotDetected) M. pneumoniae (PCR) Not Detected (NotDetected) Parainfluenza 1 (PCR) Not Detected (NotDetected) Parainfluenza 2 (PCR) Not Detected (NotDetected) Parainfluenza 3 (PCR) Not Detected (NotDetected) Parainfluenza 4 (PCR) Not Detected (NotDetected) RSV (PCR) Not Detected (NotDetected) Entero/Rhino (PCR) Not Detected (NotDetected) 09/16/23 09/16/23 Range/Units 14:14 Unknown WBC (4.8-10.8) K/ul RBC (4.70-6.10) M/uL Hgb (14.0-18.0) g/dl Hct (42.0-52.0) % MCV (80.0-100.0) fL MCH (25.0-34.0) pg MCHC (32.0-36.0) g/dL RDW Std Deviation (36.4-46.3) fL RDW Coeff of Brittany (11.5-14.5) % Plt Count (130-400) K/uL MPV (9.4-12.4) fL Immature Gran % (Auto) % Neut % (Auto) % Lymph % (Auto) % Nobles % (Auto) % Eos % (Auto) % Baso % (Auto) % Neut # (Auto) (1.40-6.50) K/uL Lymph # (Auto) (1.20-3.40) K/uL Nobles # (Auto) (0.11-0.59) K/uL Eos # (Auto) (0.00-0.50) K/uL Baso # (Auto) (0.00-0.20) K/uL Immature Gran # (Auto) (0.01-0.20) K/uL PT (9.0-12.0) Seconds INR (0.9-1.1) Sodium (136-145) mmol/L Potassium (3.5-5.1) mmol/L Chloride (98-107) mmol/L Carbon Dioxide (21-32) mmol/L Anion Gap (3-11) BUN (6-23) mg/dl Creatinine (0.6-1.4) mg/dl Est Cr Clr Drug Dosing Est GFR ( Amer) ml/min Est GFR (Non-Af Amer) ml/min BUN/Creatinine Ratio (10-20) Glucose (70-99(Fasting)) mg/dl Lactate (0.4-2.0) mmol/L Calcium (8.6-10.3) mg/dl Magnesium (1.7-2.4) mg/dl Total Bilirubin (0.2-1.0) mg/dl AST (13-39) U/L ALT (7-52) U/L Alkaline Phosphatase (34-104) U/L Troponin I High Sens 27.4 H (0-20) pg/ml Total Protein (6.0-8.3) gm/dl Albumin (3.4-5.0) gm/dl Globulin (2.5-4.0) gm/dl Albumin/Globulin Ratio (0.9-2) Procalcitonin (0-0.5) ng/ml Urine Color Dark Yellow Urine Appearance Turbid A (Clear) Urine pH 5.5 (4.5-7.5) Ur Specific [place] 1.012 (1.000-1.030) Urine Protein 2+ H (Negative) Urine Glucose (UA) Negative (Negative) Urine Ketones Trace H (Negative) Urine Blood 3+ H (Negative) Urine Nitrite Negative (Negative) Urine Bilirubin Negative (Negative) Urine Urobilinogen Negative (Negative) Ur Leukocyte Esterase 3+ H (Negative) Adenovirus (PCR) (NotDetected) B. pertussis DNA (PCR) (NotDetected) B.parapertussis DNA PCR (NotDetected) C. pneumoniae DNA (PCR) (NotDetected) Coronavirus OC43 (PCR) (NotDetected) Coronavirus HKU1 (PCR) (NotDetected) Coronavirus 229E (PCR) (NotDetected) SARS-CoV-2 (PCR) (NotDetected) Coronavirus NL63 (PCR) (NotDetected) Human Metapneumovir PCR (NotDetected) Influenza Type A (PCR) (NotDetected) Influenza Type B (PCR) (NotDetected) M. pneumoniae (PCR) (NotDetected) Parainfluenza 1 (PCR) (NotDetected) Parainfluenza 2 (PCR) (NotDetected) Parainfluenza 3 (PCR) (NotDetected) Parainfluenza 4 (PCR) (NotDetected) RSV (PCR) (NotDetected) Entero/Rhino (PCR) (NotDetected) Administered Medications Discontinued Medications Sodium Chloride (Nss) 1,000 mls @ 999 mls/hr IV .Q1H1M REPLACED BY [facility] Stop: 09/16/23 12:15 Last Infusion: 09/16/23 14:15 Dose: Infused Documented By: Admin: 09/16/23 12:15 Dose: 999 mls/hr Documented By: ULYSSES Ceftriaxone Sodium (Rocephin) 2,000 mg in 50 mls @ 100 mls/hr IV NOW STA Stop: 09/16/23 12:59 Last Infusion: 09/16/23 14:16 Dose: Infused Documented By: Admin: 09/16/23 13:10 Dose: 100 mls/hr Documented By: ULYSSES Potassium Chloride (K Alexei / Wtr) 10 meq in 100 mls @ 100 mls/hr IV Q1H REPLACED BY [facility] Stop: 09/16/23 14:44 Last Admin: 09/16/23 14:15 Dose: 100 mls/hr Documented By: Infusion: 09/16/23 14:15 Dose: Infused Documented By: Admin: 09/16/23 13:18 Dose: 100 mls/hr Documented By: ULYSSES Lidocaine HCl (Lidocaine 2% Jelly 5 Ml Tube) Confirm Administered Dose 5 ml EXT .STK-MED ONE Stop: 09/16/23 14:22 Last Admin: 09/16/23 14:46 Dose: 5 ml Documented By: ULYSSES Imaging Data Radiologist's Impression: Chest X-Ray 09/16/23 14:52 SINGLE VIEW CHEST CLINICAL HISTORY: Infection FINDINGS: An AP, portable, upright chest radiograph is compared to study dated 08/31/2023. The patient is status post midline sternotomy. The heart is enlarged noting atherosclerotic calcification of the thoracic aorta. There is pulmonary vascular congestion. Bilateral airspace opacities are observed. Trace pleural effusions are suspected. No pneumothorax is seen. The skeletal structures are osteopenic. The bony thorax is grossly intact. Surgical clips are noted in the left axilla. IMPRESSION: 1. Cardiomegaly with evidence of congestive failure. 2. Bilateral airspace opacities likely present pulmonary edema. Correlate clinically for evidence of a superimposed infectious/inflammatory pneumonitis. Radiographic follow-up to resolution is recommended. 3. Suspect trace pleural effusions. ACT 112: Negative or not required by law. Electronically signed by: Donta Love M.D. 09/16/2023 3:14 PM Discharge Plan Visit Data Chief Complaint: Illness Stated Complaint: WEAKNESS, DEHYDRATION ED Provider: Mary Warren Discharge Problem: Weakness, Leukocytosis, Diarrhea, Acute hypokalemia, Acute UTI (urinary tract infection), Non-ST elevation MS (NSTEMI) Patient Disposition: Admitted As Inpatient
[2023-09-16] MEDS ORDERED: cefTRIAXone SODIUM 2,000 MG/50 ML BAG IV STA (12:30)
[2023-09-16 12:31] LABS: Alanine Aminotransferase 3 U/L (7-52); Albumin Globulin Ratio 0.8 (0.9-2); Albumin Level 2.9 gm/dl (3.4-5.0); Alkaline Phosphatase 87 U/L (34-104); Anion Gap 10 (3-11); Aspartate Aminotransferase 9 U/L (13-39); BUN Creatinine Ratio 17.6 (10-20); Bilirubin,Total 1.2 mg/dl (0.2-1.0); Blood Urea Nitrogen 25 mg/dl (6-23); Calcium 8.3 mg/dl (8.6-10.3); Carbon Dioxide 21 mmol/L (21-32); Chloride 109 mmol/L (98-107); Est GFR (African American) 50.7 ml/min; Est GFR (Non-African American) 43.8 ml/min; Globulin 3.8 gm/dl (2.5-4.0); Glucose 80 mg/dl (70-99(Fasting)); Magnesium 1.8 mg/dl (1.7-2.4); Potassium 2.9 mmol/L (3.5-5.1); Sodium 140 mmol/L (136-145); Total Protein 6.7 gm/dl (6.0-8.3)
[2023-09-16 12:33] LABS: INR 1.9 (0.9-1.1); Prothrombin Time 19.9 Seconds (9.0-12.0)
[2023-09-16 12:37] LABS: Troponin I High Sensitivity 29.2 pg/ml (0-20)
[2023-09-16 12:44] LABS: Adenovirus PCR Not Detected (NotDetected); Bordetella parapertussis PCR Not Detected (NotDetected); Bordetella pertussis PCR Not Detected (NotDetected); Chlamydia pneumoniae PCR Not Detected (NotDetected); Coronavirus 229E PCR Not Detected (NotDetected); Coronavirus CoV-2 (COVID19)PCR Not Detected (NotDetected); Coronavirus HKU1 PCR Not Detected (NotDetected); Coronavirus NL63 PCR Not Detected (NotDetected); Coronavirus OC43PCR Not Detected (NotDetected); Human Metapneumovirus PCR Not Detected (NotDetected); Influenza A PCR Not Detected (NotDetected); Influenza B PCR Not Detected (NotDetected); Mycoplasma pneumoniae PCR Not Detected (NotDetected); Parainfluenza Virus 1 PCR Not Detected (NotDetected); Parainfluenza Virus 2 PCR Not Detected (NotDetected); Parainfluenza Virus 3 PCR Not Detected (NotDetected); Parainfluenza Virus 4 PCR Not Detected (NotDetected); Respiratory Syncytial VirusPCR Not Detected (NotDetected); Rhinovirus/Enterovirus PCR Not Detected (NotDetected)
--- NOTE | 2023-09-16 12:55 | Electrocardiogram Report ---
Test Reason : Blood Pressure : / mmHG Vent. Rate : 073 BPM Atrial Rate : 000 BPM P-R Int : 000 ms QRS Dur : 158 ms QT Int : 474 ms P-R-T Axes : 000 -60 114 degrees QTc Int : 522 ms Atrial fibrillation Right bundle branch block Left anterior fascicular block Left ventricular hypertrophy with QRS widening and repolarization abnormality Abnormal ECG No previous ECGs available Confirmed by Kelvin Kern ([id number]) on 09/16/2023 12:55:43 PM Referred By: Confirmed By:Kelvin Kern
[2023-09-16] MEDS: POTASSIUM CHLORIDE / WTR 10 MEQ/100 ML PLCT IV SCH ×5 (13:18→19:05)
[2023-09-16] MEDS ORDERED: LIDOCAINE 2% JELLY 5 ML TUBE EXT ONE (14:21)
--- NOTE | 2023-09-16 14:28 | History & Physical Report ---
Date of Service September 16, 2023 Assessment & Plan (1) Leukocytosis: Plan: -Admit to med/tele -Presented to the ED with progressive generalized weakness, poor oral intake, and recurrent diarrhea over the past 48-72 hours -Noted to have a Leukocytosis of 19 with neutrophil predominance of 15, both increased compared to discharge on 09/04 -Blood cultures were obtained in the ED and patient was given one dose of ceftriaxone -At this time the most likely etiology of his new leukocytosis is diarrheal illness, high suspicion for C. diff as he has a previous hx and has been on multiple different abx over the past month -Procal and lactate are WNL -Waiting on UA and Stool studies to result -Will obtain CXR on exam -Will give one dose of 125 mg PO Vancomycin on admission but will wait for stool studies to result to continue treatment -Patient is currently covered for the next 24 hours with Ceftriaxone per blood and urine cultures from the last admission; will hold additional IV abx for now as he is clinically stable -Will hold additional IV fluids until chest xray is obtained as his exam is consistent with volume overload -Will continue home Warfarin for DVT PPX -Will hold prednisone and Abiraterone for now with acute infection, if patient were to become unstable would start stress dosed steroids -HH diet with 2gm sodium restriction and easy to chew diet -Will order boost as well for additional nutritional support -If patient continues clinical decline during this admission would consider setting up home hospice prior to discharge -AM CBC, BMP, mag, PT/INR (2) Weakness generalized: Plan: -Likely a combination of deconditioning with recent admission, progression of his chronic medical conditions, malnutrition with dehydration, and acute infection -Patient and family deny recent falls while using walker but significantly more weak than baseline -Fall precautions, PT/OT consulted (3) Hypokalemia: Plan: -Noted to be 2.9 today -Likely due to poor oral intake and recent diarrhea -S/P 2 bags of 10 meq IV KCL in the ED -Will give an additional 3 bags of 10 meq IV KCL on admission -Mag WNL -Will hold oral KCL for now to avoid GI distress with recent poor oral intake -Monitor on tele -Will monitor evening K+ level to determine need for additional replacement overnight (4) Diarrhea: Plan: -Follow stool studies -Will give one dose of 125 mg PO Vancomycin on admission for empiric C.diff treatment with current diarrhea, recent abx use, and hx of C.diff -Will wait to order additional ABX until infectious workup is back (5) Elevated troponin: Plan: -Initial high sen trop elevated at 29 -->27 on 2 hour repeat -Patient denies chest discomfort and SOB -No acute ST segment or T-wave changes on ECG -Likely due to demand -Continue to monitor on tele (6) Atrial fibrillation: Plan: -Currently in rate controlled afib -INR is 1.9 today, likely due to not taking home Warfarin over the past 3 days due to poor oral intake -Not on rate or rhythm controlling medications after last admission -Will give a home dose of Wafarin on admission, continue daily based on daily I NR -If patient is heading towards home hospice then consider discontinuing based on discussions with patient and family (7) Hypothyroidism: Plan: -Will obtain TSH with free T-4 as he has not been taking his levothyroxine over the past 3 days -Continue home levothyroxine for now (8) Chronic indwelling Perez catheter: Plan: -Replaced in the ED just prior to admission -Continue chronic perez placement and maintenance (9) CKD (chronic kidney disease): Plan: -Cr today is 1.4, baseline is near 1.1 prior to last admission -Still recovering from [facility] last admission -Avoid nephrotoxic agents, will follow UA -Monitor daily renal function Plan The patient was discussed with Dr. 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 He remained stable in the ED. Labs were significant for a leukocytosis of 19 with neutrophil predominance of 15, INR of 1.9, Cr of 1.4 (baseline is near 1.1), BUN of 25, potassium of 2.9, total bili of 1.2 with other LFTs WNL, initial high sen trop of 29, with lactate and procal WNL and full respiratory biofire negative. Prior to admission the patient was given 1L NSS, 2 bags of 10 meq IV KCL, 2gm IV ceftriaxone, and his perez cath was being exchanged prior to UA collection. At the time of the exam the patient was lying in bed in no acute distress currently having his perez cath exchanged; history was obtained from the patient and his daughter who is at the bedside. Since discharge on 09/04 the patient has been experiencing very poor oral intake, increased generalized weakness, and multiple episodes of diarrhea. His daughter states that he has had at least 4 episodes of watery, green diarrhea over the past 48 hours. He states that he has not had an appetite over this time but would want to try clears and boost for now. He had an obstructed perez earlier this week but this was flushed at the Urology office. His daughter said he has had low grade fevers but nothing over 100F. He denies recent chest pain, SOB, cough, abd pain, and recent trauma. We discussed goals of care and code status moving forward. They are already in the process of looking into home hospice in the future and have already had one tele appointment with Emma Gibson. The patient wishes to be a DNR/DNI. The patient was recently admitted to [facility] from 08/31-09/04 with vomiting, decreased oral intake, and decreased urinary output. He was found to have both klebsiella and E. coli bacteremia thought to be from a complicated UTI. Cultures were pansensitive for both. He was started on IV ceftriaxone and ID was consulted. They recommended switching to Cefazolin while admitted with transition to PO Cefuroxime on discharge with an end date of 09/07/23. Please refer to Dr. Elkins's attestation for any changes to the treatment plan Allergies Allergy/AdvReac Type Severity Reaction Status Date / Time No Known Allergies Allergy Verified 09/16/23 13:26 Home Medications Medication Instructions Recorded Confirmed Type abiraterone 250 mg tablet 1,000 mg (4 x 250 mg) PO DAILY 08/11/23 09/16/23 Rx #120 tabs atorvastatin 20 mg tablet 20 mg PO QPM #90 tabs 08/11/23 09/16/23 Rx cholecalciferol (vitamin D3) 25 25 mcg PO DAILY #90 caps 08/11/23 09/16/23 Rx mcg (1,000 unit) capsule ferrous sulfate 325 mg (65 mg 325 mg PO DAILY 90 days #90 tabs 08/11/23 09/16/23 Rx iron) tablet levothyroxine 150 mcg tablet 150 mcg PO DAILY #90 tabs 08/11/23 09/16/23 Rx prednisone 5 mg tablet 5 mg PO DAILY #30 tabs 08/11/23 09/16/23 Rx warfarin 5 mg tablet 5 mg PO DAILY #30 tabs 08/11/23 09/16/23 Rx Past Med/Surg History Medical History (Updated 09/16/23 @ 16:07 by Mary Warren MD) Urinary retention Hematuria Hypothyroidism Kidney stone Social History Smoking Status: Never smoker Hx Alcohol Use: No Hx Substance Use: No Preferred Language: Nepalese Communication Ability: Effective Cloud Consultant Required: No Beliefs That Will Affect Care: None Current Living Situation: Family Current Living Situation Comment: lives with daughter Feels Safe at Home: Yes Assistive Devices: Walker Physical Exam Physical Exam: Physical Exam: General: In no acute distress, stated age, chronically ill appearing, malnourished, but non-toxic appearing HEENT: Normocephalic, atraumatic, no scleral icterus, pupils around round, symmetrical, and reactive to light, dry mucus membranes, trachea midline, no thyromegaly Chest/Pulm: No respiratory distress, symmetrical chest expansion, decreased breath sounds in the BL lower lung campbell with crackles in the lower lung campbell Cardiac: RRR, 3/6 systolic murmur noted Abdomen: Negative for ascites and bruising, normoactive bowel sounds, soft, non-tender to palpation throughout : New perez cath recently placed, currently draining cloudy, yellow urine Musculoskeletal: Symmetrical and without signs of acute trauma, upper and lower extremities with full ROM, no atrophy, spasticity, or flaccidity Extremities: Radial, dorsalis pedis, and posterior tibial pulses are intact and symmetrical, 1-2+ edema noted in the BL LE's Skin: Warm, dry, no rashes , lesions, or scars noted Neuro: Alert and oriented to person, place, month, year, and president, no focal defects, baseline tremors noted Psych: No acute distress, calm and cooperative during the exam Results & Data Results & Data Vital Signs (Past 12 Hours) Vital Signs Temp Pulse Resp BP Pulse Ox O2 Del Method 09/16/23 12:34 67 09/16/23 11:13 37.0 C 70 20 155/67 H 97 Room Air Laboratory Results Abnormal lab results 09/16/23 09/16/23 Range/Units 11:28 14:14 WBC 19.99 H (4.8-10.8) K/ul RBC 3.15 L (4.70-6.10) M/uL Hgb 9.0 L (14.0-18.0) g/dl Hct 27.4 L (42.0-52.0) % RDW Std Deviation 50.4 H (36.4-46.3) fL RDW Coeff of Brittany 16.0 H (11.5-14.5) % Plt Count 443 H (130-400) K/uL MPV 12.8 H (9.4-12.4) fL Neut # (Auto) 15.15 H (1.40-6.50) K/uL Daniels # (Auto) 2.45 H (0.11-0.59) K/uL PT 19.9 H (9.0-12.0) Seconds INR 1.9 H (0.9-1.1) Potassium 2.9 L (3.5-5.1) mmol/L Chloride 109 H (98-107) mmol/L BUN 25 H (6-23) mg/dl Creatinine 1.42 H (0.6-1.4) mg/dl Calcium 8.3 L (8.6-10.3) mg/dl Total Bilirubin 1.2 H (0.2-1.0) mg/dl AST 9 L (13-39) U/L ALT 3 L (7-52) U/L Troponin I High Sens 29.2 H 27.4 H (0-20) pg/ml Albumin 2.9 L (3.4-5.0) gm/dl Albumin/Globulin Ratio 0.8 L (0.9-2) ECG Additional Comments: Atrial fibrillation Right bundle branch block Left anterior fascicular block Left ventricular hypertrophy with QRS widening and repolarization abnormality Abnormal ECG No previous ECGs available Confirmed by Kelvin Kern ([id number]) on 09/16/2023 12:55:43 PM Code Status & VTE Plan Code Status DNR/DNI VTE Prophylaxis Plan VTE Prophylaxis will be ordered: Yes Supervising Physician Co-Signing Physician Notes I personally saw and examined the patient. I verified all bailey points and agree with Milan Ray PA-C with the following exceptions and/or additions: 88 year old male presents to the ER with generalized weakness after recent hospitalization in August with complicated UTI with Klebsiella and E. coli bacteremia. 4 days of watery diarrhea following recent antibiotic use. O/E A&Ox3, HS RRR, systolic murmur, 1+ pedal edema pitting, Chest CTAB, dry mucus membranes, Abdo SNT, no CVA tenderness A/P C. diff - initially given empiric vancomycin PO prior to results of this. Currently IDSA guidelines recommend Dificid as first line therefore will switch to this given his immunosuppression and limited reserve. Leukocytosis - suspect secondary to c. diff, further IV antibiotics discontinued, follow up blood cultures. PG Care Time/CCT Total # of Minutes Spent Total Time Spent with Patient: Total time spent is greater than 50% in coordination of care (as documented) at patient's floor/unit and/or counseling patient: C[place] [address] INT INP/OBS CARE 3/75MIN Patient Type Established Medical Decision Making High Complexity Diagnoses Leukocytosis D72.829 Weakness generalized R53.1 Hypokalemia E87.6 Diarrhea R19.7 Elevated troponin R79.89 Atrial fibrillation I48.91 Hypothyroidism E03.9 Chronic indwelling Perez catheter Z97.8 CKD (chronic kidney disease) N18.9
[2023-09-16 14:46] LABS: Troponin I High Sensitivity 27.4 pg/ml (0-20)
[2023-09-16] MEDS ORDERED: CHERRY SYRUP 5 ML UDP PO STA (14:58)
[2023-09-16] MEDS ORDERED: VANCOMYCIN HCL 125 MG/2.5ML SOLN PO STA (14:58)
[2023-09-16] MEDS ORDERED: PLASMA-LYTE A 1,000 ML IV SCH (15:00)
[2023-09-16] MEDS ORDERED: WARFARIN SOD 5 MG TAB PO STA (15:01)
[2023-09-16] MEDS ORDERED: ACETAMINOPHEN 325 MG TAB PO PRN (15:07)
--- NOTE | 2023-09-16 15:15 | XRay Report ---
SINGLE VIEW CHEST CLINICAL HISTORY: Infection FINDINGS: An AP, portable, upright chest radiograph is compared to study dated 08/31/2023. The patien t is status post midline sternotomy. The heart is enlarged noting atherosclerotic calcification of th e thoracic aorta. There is pulmonary vascular congestion. Bilateral airspace opacities are observed. Trace pleural effusions are suspected. No pneumothorax is seen. The skeletal structures are osteopeni c. The bony thorax is grossly intact. Surgical clips are noted in the left axilla. IMPRESSION: 1. Cardiomegaly with evidence of congestive failure. 2. Bilateral airspace opacities likely present pulmonary edema. Correlate clinically for evidence of a superimposed infectious/inflammatory pneumonitis. Radiographic follow-up to resolution is recommend ed. 3. Suspect trace pleural effusions. ACT 112: Negative or not required by law. Electronically signed by: Donta Love M.D. 09/16/2023 3:14 PM
[2023-09-16 15:49] LABS: Appearance Urine Turbid (Clear); Bilirubin Urine Negative (Negative); Blood Urine 3+ (Negative); Color Urine Dark Yellow; Epithelial Cell Urine Auto >30 /lpf (0-5); Glucose Urine UA Negative (Negative); Ketones Urine Trace (Negative); Leukocyte Esterase Urine 3+ (Negative); Nitrite Urine Negative (Negative); Protein Urine 2+ (Negative); Specific Gravity Urine 1.012 (1.000-1.030); Urobilinogen Urine Negative (Negative); WBC Urine Automated >30 /hpf (0-5); pH Urine 5.5 (4.5-7.5)
[2023-09-16 16:19] LABS: Thyroid Stimulating Hormone 7.344 uIu/ml (0.300-4.500)
[2023-09-16 16:32] LABS: Bacteria Urine Automated 1+ (Negative)
[2023-09-16 16:33] LABS: Amorphous Sediment Urine Present (None Prsent)
[2023-09-16 16:53] LABS: T4 Free Thyroxine 1.14 ng/dl (0.61-1.60)
[2023-09-16 17:28] LABS: Adenovirus F 40/41 PCR Not Detected (NotDetected); Astrovirus PCR Not Detected (NotDetected); Campylobacter PCR Not Detected (NotDetected); Cryptosporidium PCR Not Detected (NotDetected); Cyclospora cayetanensis PCR Not Detected (NotDetected); Entamoeba histolytica PCR Not Detected (NotDetected); Enteroaggregative E.coli(EAEC) Not Detected (NotDetected); Enteropathogenic E.coli (EPEC) Not Detected (NotDetected); Enterotoxigenic E.coli (ETEC) Not Detected (NotDetected); Giardia lamblia PCR Not Detected (NotDetected); Norovirus GI/GII PCR Not Detected (NotDetected); Plesiomonas shigelloides PCR Not Detected (NotDetected); Rotavirus A PCR Not Detected (NotDetected); Salmonella PCR Not Detected (NotDetected); Sapovirus PCR Not Detected (NotDetected); Shiga-like Toxin E.coli (STEC) Not Detected (NotDetected); Shigella/Enteroinvasive E.coli Not Detected (NotDetected); Vibrio cholerae PCR Not Detected (NotDetected); Vibrio species PCR Not Detected (NotDetected); Yersinia enterocolitica PCR Not Detected (NotDetected)
[2023-09-16 17:55] LABS: Cdiff Toxin B Gene (2yr or >) Positive Cdiff Gene (Neg)
[2023-09-16 17:56] LABS: Cdiff Antigen Positive; Cdiff Toxin A+B Positive Cdiff Toxin (Negative)
[2023-09-16 19:14] LABS: Total Protein Urine Random 167.8 mg/dl (0-11.9)
[2023-09-16 19:20] LABS: Creatinine Urine Random 89.1 mg/dl; Protein Creatinine Ratio Urine 1.9 (0-0.2)
[2023-09-16] MEDS: ATORVASTATIN 20 MG TAB PO SCH (20:29)
[2023-09-16] MEDS: FIDAXOMICIN 200 MG TAB PO SCH (20:43)
[2023-09-17 05:20] LABS: Basophils # (auto) 0.07 K/uL (0.00-0.20); Basophils % (auto) 0.6 %; Eosinophils # (auto) 0.12 K/uL (0.00-0.50); Hematocrit (blood only) 25.2 % (42.0-52.0); Hemoglobin 8.3 g/dl (14.0-18.0); Immature Granulocytes # (auto) 0.05 K/uL (0.01-0.20); Immature Granulocytes % (auto) 0.4 %; Lymphocytes # (auto) 2.71 K/uL (1.20-3.40); Mean Corpuscular Hemoglobin 28.8 pg (25.0-34.0); Mean Corpuscular Hgb Conc 32.9 g/dL (32.0-36.0); Mean Corpuscular Volume 87.5 fL (80.0-100.0); Mean Platelet Volume 12.8 fL (9.4-12.4); Monocytes # (auto) 1.85 K/uL (0.11-0.59); Monocytes % (auto) 15.7 %; Neutrophils # (auto) 6.99 K/uL (1.40-6.50); Neutrophils % (auto) 59.3 %; Platelet Count 393 K/uL (130-400); RDW Coefficient of Variation 15.9 % (11.5-14.5); RDW Standard Deviation 50.5 fL (36.4-46.3); Red Blood Count 2.88 M/uL (4.70-6.10); White Blood Count 11.79 K/ul (4.8-10.8)
[2023-09-17 05:30] LABS: Prothrombin Time 21.2 Seconds (9.0-12.0)
[2023-09-17 05:46] LABS: Albumin Level 2.5 gm/dl (3.4-5.0); Anion Gap 10 (3-11); Bilirubin,Total 0.6 mg/dl (0.2-1.0); Calcium 7.7 mg/dl (8.6-10.3); Carbon Dioxide 18 mmol/L (21-32); Chloride 112 mmol/L (98-107); Potassium 3.3 mmol/L (3.5-5.1); Sodium 140 mmol/L (136-145)
[2023-09-17 05:57] LABS: Alanine Aminotransferase < 3 U/L (7-52); Albumin Globulin Ratio 0.8 (0.9-2); Alkaline Phosphatase 74 U/L (34-104); Aspartate Aminotransferase 7 U/L (13-39); Blood Urea Nitrogen 25 mg/dl (6-23); Creatinine Clr Calc Pharmacy 34.3 ml/min; Est GFR (African American) 52.1 ml/min; Est GFR (Non-African American) 44.9 ml/min; Globulin 3.1 gm/dl (2.5-4.0); Glucose 75 mg/dl (70-99(Fasting)); Total Protein 5.6 gm/dl (6.0-8.3)
[2023-09-17] MEDS ORDERED: POTASSIUM CHLORIDE 20 MEQ/15 ML UDC PO STA (07:21)
--- NOTE | 2023-09-17 07:28 | Hospitalist Progress Note ---
Date of Service September 17, 2023 Assessment & Plan (1) Leukocytosis: Plan: Leukocytosis of 19, rapidly downtrending to 11.79 following initial treatment Was treated with 1 dose of empiric vancomycin. C. difficile subsequently positive. Due to high risk infection with both recent creatinine of 1.8, although 1.42 on admission, and leukocytosis >15k with multiple comorbidities agree with treatment with fidaxomicin as initial treatment rather than vancomycin. Continue to 200 mg twice daily for 10-day course No additional IV antibiotics for chronic infected appearing urine, no symptoms Prednisone/abiraterone held in the setting of acute infection. His blood pressure decreases start stress dose steroids 2 g sodium restriction Patient is with evidence of CHF on chest x-ray, BMP ordered. High sensitive troponin mildly elevated and down trended. Will defer diuresis due to severe ongoing diarrhea and C. difficile infection until clinically stable, once improved and stable repeat x-ray and if remaining volume overloaded start Lasix 40 mg twice daily Patient is hyperchloremic and with a bicarb of 18, metabolic acidosis in the setting of GI losses in addition to recently recovering [facility] CBC, BMP, mag, PT/INR daily Patient has had extensive discussions with palliative care regarding goals of treatment, antibiotic treatment to recover from acute illnesses is within goals of care however if he were to clinically deteriorate would consider comfort measures hospice at that time (2) Weakness generalized: Plan: -Likely a combination of deconditioning with recent admission, progression of his chronic medical conditions, malnutrition with dehydration, and acute infection -Patient and family deny recent falls while using walker but significantly more weak than baseline -With active C. difficile infection. Treated as no (3) Hypokalemia: Plan: -2.9 on admission, received aggressive repletion and 3.31/12 Additional repletion ordered Trend daily along with mag. 1.8 --> oral repletion (4) Diarrhea: Plan: -Agree with fidaxomicin for C. difficile as noted (5) Elevated troponin: Plan: -Initial high sen trop elevated at 29 -->27 on 2 hour repeat -Patient denies chest discomfort and SOB -No acute ST segment or T-wave changes on ECG -Likely due to demand -Continue to monitor on tele (6) Atrial fibrillation: Plan: -Currently in rate controlled afib -INR 1.9 on admission, uptrending and now low end of therapeutic range Continue warfarin, INR daily -If patient is heading towards home hospice then consider discontinuing based on discussions with patient and family (7) Hypothyroidism: Plan: Continue home Synthroid (8) Chronic indwelling Perez catheter: Plan: -Replaced in the ED just prior to admission -Continue chronic perez placement and maintenance (9) CKD (chronic kidney disease): Plan: -Creatinine 1.44 on admission, continues to downtrend. Last known baseline approximately 1.1 -Still recovering from [facility] last admission -Avoid nephrotoxic agents, will follow UC -Monitor daily renal function UA chronically infected appearing with yeast in the setting of indwelling Perez. No urinary symptoms and received 1 dose of ceftriaxone on admission. Will defer additional pending clinical progression. No UTI sx at present. No fevers/chils/flank pain on reassessment Admission and Anticipated Discharge Date Admission Date: September 16, 2023 Alfredo Lerma is seen at the bedside today. He reports he feels much better although not yet back to baseline maybe 50 to 75%. Bowel movements seem to be around 5/day and liquid, with meals inciting these. He feels fatigued, but that he is starting to make a little bit of progress. No chest pain, chest pressure. No nausea/vomiting. No shortness of breath. No additional questions or concerns at bedside Physical Exam Physical Exam: General: A&Ox3. NAD. Cooperative. Appears fatigued and chronically ill but nontoxic HEENT: Atraumatic, normocephalic. Vision and hearing grossly intact Pulm: CTAB A&P. -wheezes, -rales, -rhonchi. Symmetrical chest rise. No increased work of breathing. No respiratory distress. Cardiac: RRR, Systolic murmur. Radial pulses intact and symmetrical. Abdominal: Soft, nontender, nondistended Extremities: Warm/dr Results & Data Results & Data Vital Signs (Past 12 Hours) Vital Signs Pulse Pulse Resp BP Pulse Ox Pulse Ox O2 Del Method 09/17/23 07:15 54 L 09/16/23 23:00 59 L 14 116/54 L 96 Room Air 09/16/23 21:19 64 09/16/23 20:00 65 20 113/57 L 98 Room Air 09/16/23 20:00 98 O2 Del Method 09/17/23 07:15 09/16/23 23:00 09/16/23 21:19 09/16/23 20:00 09/16/23 20:00 Room Air PG Care Time/CCT Total # of Minutes Spent Total Time Spent with Patient: Total time spent is greater than 50% in coordination of care (as documented) at patient's floor/unit and/or counseling patient: Coding Level of Care Code 98173 SUB INP/OBS CARE 3/50MIN Diagnoses Leukocytosis D72.829 Weakness generalized R53.1 Hypokalemia E87.6 Diarrhea R19.7 Elevated troponin R79.89 Atrial fibrillation I48.91 Hypothyroidism E03.9 Chronic indwelling Perez catheter Z97.8 CKD (chronic kidney disease) N18.9
[2023-09-17] MEDS: LEVOTHYROXINE SODIUM 150 MCG TABLET PO SCH (07:49)
[2023-09-17 09:30] LABS: A calco-baum cmplx NotReported Not Detected (NotDetected); Bact fragilis Not Reported Not Detected (NotDetected); Blood Culture Id Panel See PCR Comment (NotDetected); C auris Not Reported Not Detected (NotDetected); Calbicans Not Reported Not Detected (NotDetected); Candida glabrata Not Reported Not Detected (NotDetected); Candida krusei Not Reported Not Detected (NotDetected); Cneoformans/gatti Not Reported Not Detected (NotDetected); Cparapsilosis Not Reported Not Detected (NotDetected); E cloacae compx Not Reported Not Detected (NotDetected); Efaecalis Not Reported Not Detected (NotDetected); Efaecium Not Reported Not Detected (NotDetected); Enterobacterales Not Reported Not Detected (NotDetected); Escherichia coli Not Reported Not Detected (NotDetected); H influenzae Not Reported Not Detected (NotDetected); K aerogenes Not Reported Not Detected (NotDetected); Koxytoca Not Reported Not Detected (NotDetected); Kpneumoniae grp Not Reported Not Detected (NotDetected); Lmonocyt Not Reported Not Detected (NotDetected); N meningitidis Not Reported Not Detected (NotDetected); P aeruginosa Not Reported Not Detected (NotDetected); Proteus spp Not Reported Not Detected (NotDetected); Salmonella spp Not Reported Not Detected (NotDetected); Smarcescens Not Reported Not Detected (NotDetected); Staph lugdunensis Not Reported Not Detected (NotDetected); Staph spp. Not Reported DETECTED (NotDetected); Staphaureus Not Reported Not Detected (NotDetected); Staphepi Not Reported DETECTED (NotDetected); Staphylococcus spp. DETECTED (NotDetected); Stenmaltophilia Not Reported Not Detected (NotDetected); Strep agal(GrpB) Not Reported Not Detected (NotDetected); Strep pneum Not Reported Not Detected (NotDetected); Strep pyog (GrpA) Not Reported Not Detected (NotDetected); Strep spp Not Reported Not Detected (NotDetected)
[2023-09-17] MEDS: MAGNESIUM OXIDE 400 MG TAB PO SCH (09:39)
[2023-09-17] MEDS: FERROUS SULFATE 325 MG TAB PO SCH (09:39)
[2023-09-17 10:00] LABS: Staphylococcus epidermidis DETECTED (NotDetected)
[2023-09-17] MEDS ORDERED: VANCOMYCIN CONSULT ACTIVE PRN (10:00)
[2023-09-17 10:02] LABS: mecAC Resistant Gene DETECTED (NotDetected)
[2023-09-17] MEDS ORDERED: VANCOMYCIN HCL 1,500 MG in SODIUM CHLORIDE 0.9% 500 ML IV ONE (10:30)
[2023-09-17] MEDS: FIDAXOMICIN 200 MG TAB PO SCH ×2 (10:50→21:05)
[2023-09-17] MEDS ORDERED: cefTRIAXone SODIUM 2,000 MG in DEXTROSE 5 % MINI-B 50 ML IV SCH (13:00)
[2023-09-17] MEDS: WARFARIN SOD 5 MG TAB PO SCH (17:04)
[2023-09-17] MEDS: ATORVASTATIN 20 MG TAB PO SCH (21:05)
[2023-09-18 05:15] LABS: Basophils # (auto) 0.04 K/uL (0.00-0.20); Basophils % (auto) 0.4 %; Eosinophils % (auto) 2.1 %; Hematocrit (blood only) 26.6 % (42.0-52.0); Hemoglobin 8.7 g/dl (14.0-18.0); Immature Granulocytes # (auto) 0.03 K/uL (0.01-0.20); Immature Granulocytes % (auto) 0.3 %; Lymphocytes # (auto) 3.41 K/uL (1.20-3.40); Mean Corpuscular Hemoglobin 28.9 pg (25.0-34.0); Mean Corpuscular Hgb Conc 32.7 g/dL (32.0-36.0); Mean Corpuscular Volume 88.4 fL (80.0-100.0); Mean Platelet Volume 12.2 fL (9.4-12.4); Monocytes # (auto) 1.37 K/uL (0.11-0.59); Monocytes % (auto) 14.1 %; Neutrophils % (auto) 48.1 %; Platelet Count 411 K/uL (130-400); RDW Coefficient of Variation 15.5 % (11.5-14.5); RDW Standard Deviation 49.5 fL (36.4-46.3); Red Blood Count 3.01 M/uL (4.70-6.10); White Blood Count 9.75 K/ul (4.8-10.8)
[2023-09-18 05:33] LABS: Albumin Globulin Ratio 0.8 (0.9-2); Albumin Level 2.6 gm/dl (3.4-5.0); Bilirubin,Total 0.5 mg/dl (0.2-1.0); Calcium 7.9 mg/dl (8.6-10.3); Creatinine Clr Calc Pharmacy 37.6 ml/min; Est GFR (African American) 58.1 ml/min; Est GFR (Non-African American) 50.1 ml/min; Globulin 3.3 gm/dl (2.5-4.0); Potassium 3.3 mmol/L (3.5-5.1); Total Protein 5.9 gm/dl (6.0-8.3)
[2023-09-18 05:42] LABS: INR 1.8 (0.9-1.1); Prothrombin Time 19.3 Seconds (9.0-12.0)
[2023-09-18] MEDS: LEVOTHYROXINE SODIUM 150 MCG TABLET PO SCH (06:41)
[2023-09-18] MEDS: FIDAXOMICIN 200 MG TAB PO SCH ×2 (08:33→21:09)
[2023-09-18] MEDS: MAGNESIUM OXIDE 400 MG TAB PO SCH (08:33)
[2023-09-18] MEDS: FERROUS SULFATE 325 MG TAB PO SCH (08:34)
[2023-09-18] MEDS ORDERED: VANCOMYCIN HCL 1,000 MG in SODIUM CHLORIDE 0.9% 500 ML IV SCH (09:00)
[2023-09-18] MEDS ORDERED: POTASSIUM CHLORIDE 20 MEQ/15 ML UDC PO STA (15:22)
--- NOTE | 2023-09-18 15:36 | Hospitalist Progress Note ---
Date of Service September 18, 2023 Assessment & Plan (1) Leukocytosis: Plan: -Admit to med/tele -Presented to the ED with progressive generalized weakness, poor oral intake, and recurrent diarrhea over the past 48-72 hours -Noted to have a Leukocytosis of 19 with neutrophil predominance of 15, both increased compared to discharge on 09/04 -Blood cultures were obtained in the ED and patient was given one dose of ceftriaxone -At this time the most likely etiology of his new leukocytosis is diarrheal illness, high suspicion for C. diff as he has a previous hx and has been on multiple different abx over the past month -Procal and lactate are WNL -Waiting on UA and Stool studies to result -Will obtain CXR on exam -Will give one dose of 125 mg PO Vancomycin on admission but will wait for stool studies to result to continue treatment -Patient is currently covered for the next 24 hours with Ceftriaxone per blood and urine cultures from the last admission; will hold additional IV abx for now as he is clinically stable -Will hold additional IV fluids until chest xray is obtained as his exam is consistent with volume overload -Will continue home Warfarin for DVT PPX -Will hold prednisone and Abiraterone for now with acute infection, if patient were to become unstable would start stress dosed steroids -HH diet with 2gm sodium restriction and easy to chew diet -Will order boost as well for additional nutritional support -If patient continues clinical decline during this admission would consider setting up home hospice prior to discharge -AM CBC, BMP, mag, PT/INR On 09/18, Appears to be improving with above antibiotics. will continue and monitor inflammatory markers. (2) Weakness generalized: Plan: -Likely a combination of deconditioning with recent admission, progression of his chronic medical conditions, malnutrition with dehydration, and acute infection -Patient and family deny recent falls while using walker but significantly more weak than baseline -Fall precautions, PT/OT consulted (3) Hypokalemia: Plan: -Noted to be 2.9 today -Likely due to poor oral intake and recent diarrhea -S/P 2 bags of 10 meq IV KCL in the ED -Will give an additional 3 bags of 10 meq IV KCL on admission -Mag WNL -Will hold oral KCL for now to avoid GI distress with recent poor oral intake -Monitor on tele -Will monitor evening K+ level to determine need for additional replacement overnight (4) Diarrhea: Plan: -Follow stool studies -Will give one dose of 125 mg PO Vancomycin on admission for empiric C.diff treatment with current diarrhea, recent abx use, and hx of C.diff -Will wait to order additional ABX until infectious workup is back (5) Elevated troponin: Plan: -Initial high sen trop elevated at 29 -->27 on 2 hour repeat -Patient denies chest discomfort and SOB -No acute ST segment or T-wave changes on ECG -Likely due to demand -Continue to monitor on tele (6) Atrial fibrillation: Plan: -Currently in rate controlled afib -INR is 1.9 today, likely due to not taking home Warfarin over the past 3 days due to poor oral intake -Not on rate or rhythm controlling medications after last admission -Will give a home dose of Wafarin on admission, continue daily based on daily INR -If patient is heading towards home hospice then consider discontinuing based on discussions with patient and family (7) Hypothyroidism: Plan: -Will obtain TSH with free T-4 as he has not been taking his levothyroxine over the past 3 days -Continue home levothyroxine for now (8) Chronic indwelling Perez catheter: Plan: -Replaced in the ED just prior to admission -Continue chronic perez placement and maintenance will replace if unable to reposition as patient is having leakage (9) CKD (chronic kidney disease): Plan: -Cr today is 1.4, baseline is near 1.1 prior to last admission -Still recovering from [facility] last admission -Avoid nephrotoxic agents, will follow UA -Monitor daily renal function Plan The patient was discussed with Dr. Elkins at the time of the admission Admission and Anticipated Discharge Date Admission Date: September 16, 2023 Subjective Patient is resting comfortably. Review of Systems Review of Systems: All systems reviewed & are unremarkable except as noted in HPI & below Physical Exam Physical Exam: General: AAppears fatigued and chronically ill but nontoxic HEENT: Atraumatic, normocephalic. Pulm: Symmetrical chest rise. No increased work of breathing. No respiratory distress. Extremities: Warm/dr Results & Data Results & Data Vital Signs (Past 12 Hours) Vital Signs Temp Pulse Resp BP Pulse Ox O2 Del Method 09/18/23 15:27 36.7 C 61 20 156/69 H 98 Room Air 09/18/23 11:35 36.4 C L 66 20 150/71 H 96 Room Air 09/18/23 07:53 36.3 C L 64 20 169/70 H 99 Room Air PG Care Time/CCT Total # of Minutes Spent Total Time Spent with Patient: Total time spent is greater than 50% in coordination of care (as documented) at patient's floor/unit and/or counseling patient: Coding Level of Care Code 10873 SUB INP/OBS CARE 2/35MIN Diagnoses Leukocytosis D72.829 Weakness generalized R53.1 Hypokalemia E87.6 Diarrhea R19.7 Elevated troponin R79.89 Atrial fibrillation I48.91 Hypothyroidism E03.9 Chronic indwelling Perez catheter Z97.8 CKD (chronic kidney disease) N18.9
[2023-09-18] MEDS: WARFARIN SOD 5 MG TAB PO SCH (16:13)
[2023-09-18] MEDS ORDERED: LIDOCAINE 2% JELLY 5 ML TUBE EXT ONE (16:24)
[2023-09-18] MEDS: ATORVASTATIN 20 MG TAB PO SCH (21:06)
[2023-09-19 04:30] LABS: Basophils # (auto) 0.05 K/uL (0.00-0.20); Basophils % (auto) 0.5 %; Eosinophils # (auto) 0.15 K/uL (0.00-0.50); Eosinophils % (auto) 1.4 %; Hematocrit (blood only) 24.9 % (42.0-52.0); Hemoglobin 8.3 g/dl (14.0-18.0); Immature Granulocytes # (auto) 0.04 K/uL (0.01-0.20); Immature Granulocytes % (auto) 0.4 %; Lymphocytes # (auto) 2.54 K/uL (1.20-3.40); Lymphocytes % (auto) 23.5 %; Mean Corpuscular Hemoglobin 29.3 pg (25.0-34.0); Mean Corpuscular Hgb Conc 33.3 g/dL (32.0-36.0); Mean Platelet Volume 12.3 fL (9.4-12.4); Monocytes # (auto) 1.78 K/uL (0.11-0.59); Monocytes % (auto) 16.4 %; Neutrophils # (auto) 6.27 K/uL (1.40-6.50); Neutrophils % (auto) 57.8 %; Platelet Count 363 K/uL (130-400); RDW Coefficient of Variation 15.9 % (11.5-14.5); RDW Standard Deviation 50.7 fL (36.4-46.3); Red Blood Count 2.83 M/uL (4.70-6.10); White Blood Count 10.83 K/ul (4.8-10.8)
[2023-09-19 04:48] LABS: Albumin Globulin Ratio 0.8 (0.9-2); Albumin Level 2.4 gm/dl (3.4-5.0); Bilirubin,Total 0.5 mg/dl (0.2-1.0); C Reactive Protein 3.73 mg/dl (0-0.5); Calcium 7.7 mg/dl (8.6-10.3); Creatinine Clr Calc Pharmacy 38.5 ml/min; Est GFR (African American) 59.8 ml/min; Est GFR (Non-African American) 51.6 ml/min; Globulin 3.2 gm/dl (2.5-4.0); Potassium 3.5 mmol/L (3.5-5.1); Total Protein 5.6 gm/dl (6.0-8.3)
[2023-09-19 05:06] LABS: INR 1.9 (0.9-1.1); Prothrombin Time 20.3 Seconds (9.0-12.0)
[2023-09-19] MEDS: LEVOTHYROXINE SODIUM 150 MCG TABLET PO SCH (05:57)
[2023-09-19] MEDS: MAGNESIUM OXIDE 400 MG TAB PO SCH (08:39)
[2023-09-19] MEDS: FERROUS SULFATE 325 MG TAB PO SCH (08:39)
[2023-09-19] MEDS: FIDAXOMICIN 200 MG TAB PO SCH ×2 (08:42→21:00)
--- NOTE | 2023-09-19 12:50 | Hospitalist Progress Note ---
Date of Service September 19, 2023 Assessment & Plan (1) Leukocytosis: Plan: -Admit to med/tele -Presented to the ED with progressive generalized weakness, poor oral intake, and recurrent diarrhea over the past 48-72 hours -Noted to have a Leukocytosis of 19 with neutrophil predominance of 15, both increased compared to discharge on 09/04 -Blood cultures were obtained in the ED and patient was given one dose of ceftriaxone -At this time the most likely etiology of his new leukocytosis is diarrheal illness, high suspicion for C. diff as he has a previous hx and has been on multiple different abx over the past month -Procal and lactate are WNL -Waiting on UA and Stool studies to result -Will obtain CXR on exam -Will give one dose of 125 mg PO Vancomycin on admission but will wait for stool studies to result to continue treatment -Patient is currently covered for the next 24 hours with Ceftriaxone per blood and urine cultures from the last admission; will hold additional IV abx for now as he is clinically stable -Will hold additional IV fluids until chest xray is obtained as his exam is consistent with volume overload -Will continue home Warfarin for DVT PPX -Will hold prednisone and Abiraterone for now with acute infection, if patient were to become unstable would start stress dosed steroids -HH diet with 2gm sodium restriction and easy to chew diet -Will order boost as well for additional nutritional support -If patient continues clinical decline during this admission would consider setting up home hospice prior to discharge -AM CBC, BMP, mag, PT/INR On 09/18, Appears to be improving with above antibiotics. will continue and monitor inflammatory markers. On 09/19 Continues to improve. DIarrhea has subsided. right Ankle sprain however will likely delay discharge. WIll need to obtain x rays, may need ASO, and will have PT/OT eval patient. (2) Weakness generalized: Plan: -Likely a combination of deconditioning with recent admission, progression of his chronic medical conditions, malnutrition with dehydration, and acute infection -Patient and family deny recent falls while using walker but significantly more weak than baseline -Fall precautions, PT/OT consulted (3) Hypokalemia: Plan: -Noted to be 2.9 today -Likely due to poor oral intake and recent diarrhea -S/P 2 bags of 10 meq IV KCL in the ED -Will give an additional 3 bags of 10 meq IV KCL on admission -Mag WNL -Will hold oral KCL for now to avoid GI distress with recent poor oral intake -Monitor on tele -Will monitor evening K+ level to determine need for additional replacement overnight (4) Diarrhea: Plan: -Follow stool studies -Will give one dose of 125 mg PO Vancomycin on admission for empiric C.diff treatment with current diarrhea, recent abx use, and hx of C.diff -Will wait to order additional ABX until infectious workup is back (5) Elevated troponin: Plan: -Initial high sen trop elevated at 29 -->27 on 2 hour repeat -Patient denies chest discomfort and SOB -No acute ST segment or T-wave changes on ECG -Likely due to demand -Continue to monitor on tele (6) Atrial fibrillation: Plan: -Currently in rate controlled afib -INR is 1.9 today, likely due to not taking home Warfarin over the past 3 days due to poor oral intake -Not on rate or rhythm controlling medications after last admission -Will give a home dose of Wafarin on admission, continue daily based on daily INR -If patient is heading towards home hospice then consider discontinuing based on discussions with patient and family (7) Hypothyroidism: Plan: -Will obtain TSH with free T-4 as he has not been taking his levothyroxine over the past 3 days -Continue home levothyroxine for now (8) Chronic indwelling Perez catheter: Plan: -Replaced in the ED just prior to admission -Continue chronic perez placement and maintenance will replace if unable to reposition as patient is having leakage (9) CKD (chronic kidney disease): Plan: -Cr today is 1.4, baseline is near 1.1 prior to last admission -Still recovering from [facility] last admission -Avoid nephrotoxic agents, will follow UA -Monitor daily renal function Admission and Anticipated Discharge Date Admission Date: September 16, 2023 Subjective Patient reports his diarrhea has improved, stools are now formed. He does state he had an ankle sprain when going to the bathroom. He reports his right ankle is painful, but he does not think it broken. Review of Systems Review of Systems: All systems reviewed & are unremarkable except as noted in HPI & below Physical Exam Physical Exam: General: Appears fatigued and chronically ill but nontoxic HEENT: Atraumatic, normocephalic. Pulm: Symmetrical chest rise. No increased work of breathing. No respiratory distress. Extremities: Warm/dr MSK: swelling on lateral right ankle, tender to palpation. Results & Data Results & Data Vital Signs (Past 12 Hours) Vital Signs Temp Pulse Pulse Resp BP Pulse Ox O2 Del Method 09/19/23 11:16 36.9 C 59 L 20 157/69 H 98 Room Air 09/19/23 07:41 36.4 C L 64 20 146/70 H 98 Room Air 09/19/23 07:25 63 09/19/23 04:28 36.6 C 66 18 151/69 H 97 Room Air PG Care Time/CCT Total # of Minutes Spent Total Time Spent with Patient: Total time spent is greater than 50% in coordination of care (as documented) at patient's floor/unit and/or counseling patient: Coding Level of Care Code 14535 SUB INP/OBS CARE 2/35MIN Diagnoses Leukocytosis D72.829 Weakness generalized R53.1 Hypokalemia E87.6 Diarrhea R19.7 Elevated troponin R79.89 Atrial fibrillation I48.91 Hypothyroidism E03.9 Chronic indwelling Perez catheter Z97.8 CKD (chronic kidney disease) N18.9
--- NOTE | 2023-09-19 13:28 | XRay Report ---
RIGHT ANKLE 3 VIEWS CLINICAL HISTORY: Right ankle sprain. FINDINGS: 3 views of the right ankle are obtained. No prior studies are available for comparison at t he time of dictation. The skeletal structures are osteopenic. No fracture is seen. The ankle mortise is intact. Question chronic postoperative deformity of the distal fibula. There is no significant hany nt effusion. Soft tissue edema is present throughout the right leg. Advanced atherosclerotic calcific ation is noted in the regional arteries. There is a large plantar heel spur. IMPRESSION: Soft tissue edema with no acute bony abnormality identified. Electronically signed by: Donta Love M.D. 09/19/2023 1:27 PM
[2023-09-19] MEDS: ACETAMINOPHEN 325 MG TAB PO PRN ×2 (16:00→21:00)
[2023-09-19] MEDS: WARFARIN SOD 5 MG TAB PO SCH (16:00)
[2023-09-19] MEDS: ATORVASTATIN 20 MG TAB PO SCH (20:55)
[2023-09-20] MEDS: LEVOTHYROXINE SODIUM 150 MCG TABLET PO SCH (05:35)
[2023-09-20 06:12] LABS: Hematocrit (blood only) 24.9 % (42.0-52.0); Hemoglobin 8.1 g/dl (14.0-18.0); Mean Corpuscular Hemoglobin 28.8 pg (25.0-34.0); Mean Corpuscular Hgb Conc 32.5 g/dL (32.0-36.0); Mean Corpuscular Volume 88.6 fL (80.0-100.0); Platelet Count 313 K/uL (130-400); RDW Coefficient of Variation 15.9 % (11.5-14.5); RDW Standard Deviation 51.1 fL (36.4-46.3); Red Blood Count 2.81 M/uL (4.70-6.10); White Blood Count 10.01 K/ul (4.8-10.8)
[2023-09-20 06:26] LABS: BUN Creatinine Ratio 19.8 (10-20); Calcium 7.5 mg/dl (8.6-10.3); Creatinine Clr Calc Pharmacy 39.5 ml/min; Est GFR (African American) 61.6 ml/min; Est GFR (Non-African American) 53.1 ml/min; Potassium 3.4 mmol/L (3.5-5.1)
[2023-09-20] MEDS: FERROUS SULFATE 325 MG TAB PO SCH (08:22)
[2023-09-20] MEDS: FIDAXOMICIN 200 MG TAB PO SCH ×2 (08:22→21:01)
[2023-09-20] MEDS: MAGNESIUM OXIDE 400 MG TAB PO SCH (08:22)
[2023-09-20] MEDS: WARFARIN SOD 5 MG TAB PO SCH (16:29)
[2023-09-20] MEDS: ATORVASTATIN 20 MG TAB PO SCH (21:01)
--- NOTE | 2023-09-20 21:46 | Hospitalist Progress Note ---
Date of Service September 20, 2023 Assessment & Plan (1) Leukocytosis: Plan: -Admit to med/tele -Presented to the ED with progressive generalized weakness, poor oral intake, and recurrent diarrhea over the past 48-72 hours -Noted to have a Leukocytosis of 19 with neutrophil predominance of 15, both increased compared to discharge on 09/04 -Blood cultures were obtained in the ED and patient was given one dose of ceftriaxone -At this time the most likely etiology of his new leukocytosis is diarrheal illness, high suspicion for C. diff as he has a previous hx and has been on multiple different abx over the past month -Procal and lactate are WNL -Waiting on UA and Stool studies to result -Will obtain CXR on exam -Will give one dose of 125 mg PO Vancomycin on admission but will wait for stool studies to result to continue treatment -Patient is currently covered for the next 24 hours with Ceftriaxone per blood and urine cultures from the last admission; will hold additional IV abx for now as he is clinically stable -Will hold additional IV fluids until chest xray is obtained as his exam is consistent with volume overload -Will continue home Warfarin for DVT PPX -Will hold prednisone and Abiraterone for now with acute infection, if patient were to become unstable would start stress dosed steroids -HH diet with 2gm sodium restriction and easy to chew diet -Will order boost as well for additional nutritional support -If patient continues clinical decline during this admission would consider setting up home hospice prior to discharge -AM CBC, BMP, mag, PT/INR On 09/18, Appears to be improving with above antibiotics. will continue and monitor inflammatory markers. On 09/19 Continues to improve. DIarrhea has subsided. right Ankle sprain however will likely delay discharge. WIll need to obtain x rays, may need ASO, and will have PT/OT eval patient. On 09/20 ordered ASO brace (2) Weakness generalized: Plan: -Likely a combination of deconditioning with recent admission, progression of his chronic medical conditions, malnutrition with dehydration, and acute infection -Patient and family deny recent falls while using walker but significantly more weak than baseline -Fall precautions, PT/OT consulted (3) Hypokalemia: Plan: -Noted to be 2.9 today -Likely due to poor oral intake and recent diarrhea -S/P 2 bags of 10 meq IV KCL in the ED -Will give an additional 3 bags of 10 meq IV KCL on admission -Mag WNL -Will hold oral KCL for now to avoid GI distress with recent poor oral intake -Monitor on tele -Will monitor evening K+ level to determine need for additional replacement overnight (4) Diarrhea: Plan: -Follow stool studies -Will give one dose of 125 mg PO Vancomycin on admission for empiric C.diff treatment with current diarrhea, recent abx use, and hx of C.diff -Will wait to order additional ABX until infectious workup is back (5) Elevated troponin: Plan: -Initial high sen trop elevated at 29 -->27 on 2 hour repeat -Patient denies chest discomfort and SOB -No acute ST segment or T-wave changes on ECG -Likely due to demand -Continue to monitor on tele (6) Atrial fibrillation: Plan: -Currently in rate controlled afib -INR is 1.9 today, likely due to not taking home Warfarin over the past 3 days due to poor oral intake -Not on rate or rhythm controlling medications after last admission -Will give a home dose of Wafarin on admission, continue daily based on daily INR -If patient is heading towards home hospice then consider discontinuing based on discussions with patient and family (7) Hypothyroidism: Plan: -Will obtain TSH with free T-4 as he has not been taking his levothyroxine over the past 3 days -Continue home levothyroxine for now (8) Chronic indwelling Perez catheter: Plan: -Replaced in the ED just prior to admission -Continue chronic perez placement and maintenance will replace if unable to reposition as patient is having leakage (9) CKD (chronic kidney disease): Plan: -Cr today is 1.4, baseline is near 1.1 prior to last admission -Still recovering from [facility] last admission -Avoid nephrotoxic agents, will follow UA -Monitor daily renal function Admission and Anticipated Discharge Date Admission Date: September 16, 2023 Subjective Patient reports no new symptoms. Family open to home hospice. Review of Systems Review of Systems: All systems reviewed & are unremarkable except as noted in HPI & below Physical Exam Physical Exam: General: Appears fatigued and chronically ill but nontoxic HEENT: Atraumatic, normocephalic. Pulm: Symmetrical chest rise. No increased work of breathing. No respiratory distress. Extremities: Warm/dr MSK: swelling on lateral right ankle, tender to palpation. Results & Data Results & Data Vital Signs (Past 12 Hours) Vital Signs Temp Pulse Pulse Resp BP Pulse Ox O2 Del Method 09/20/23 19:36 36.9 C 62 18 126/61 97 Room Air 09/20/23 16:53 Room Air 09/20/23 14:53 37.3 C 66 20 162/51 H 97 Room Air 09/20/23 14:04 63 09/20/23 11:32 37.5 C 59 L 20 168/63 H 96 Room Air PG Care Time/CCT Total # of Minutes Spent Total Time Spent with Patient: Total time spent is greater than 50% in coordination of care (as documented) at patient's floor/unit and/or counseling patient: Coding Level of Care Code 34617 SUB INP/OBS CARE 2/35MIN Diagnoses Leukocytosis D72.829 Weakness generalized R53.1 Hypokalemia E87.6 Diarrhea R19.7 Elevated troponin R79.89 Atrial fibrillation I48.91 Hypothyroidism E03.9 Chronic indwelling Perez catheter Z97.8 CKD (chronic kidney disease) N18.9
[2023-09-21] MEDS: LEVOTHYROXINE SODIUM 150 MCG TABLET PO SCH (03:52)
[2023-09-21] MEDS: ACETAMINOPHEN 325 MG TAB PO PRN ×4 (03:52→21:06)
[2023-09-21 06:24] LABS: BUN Creatinine Ratio 18.7 (10-20); C Reactive Protein 10.95 mg/dl (0-0.5); Calcium 7.3 mg/dl (8.6-10.3); Creatinine Clr Calc Pharmacy 31.8 ml/min; Est GFR (African American) 47.5 ml/min; Hemoglobin 7.4 g/dl (14.0-18.0); Mean Corpuscular Hgb Conc 33.6 g/dL (32.0-36.0); Mean Corpuscular Volume 86.3 fL (80.0-100.0); Mean Platelet Volume 12.5 fL (9.4-12.4); Platelet Count 288 K/uL (130-400); Potassium 3.6 mmol/L (3.5-5.1); RDW Coefficient of Variation 15.8 % (11.5-14.5); RDW Standard Deviation 48.9 fL (36.4-46.3); Red Blood Count 2.55 M/uL (4.70-6.10); White Blood Count 12.57 K/ul (4.8-10.8)
[2023-09-21] MEDS: MAGNESIUM OXIDE 400 MG TAB PO SCH (09:04)
[2023-09-21] MEDS: FERROUS SULFATE 325 MG TAB PO SCH (09:04)
[2023-09-21] MEDS: FIDAXOMICIN 200 MG TAB PO SCH ×2 (09:12→19:48)
[2023-09-21] MEDS: WARFARIN SOD 5 MG TAB PO SCH (16:20)
[2023-09-21] MEDS: ATORVASTATIN 20 MG TAB PO SCH (19:48)
--- NOTE | 2023-09-21 21:21 | Hospitalist Progress Note ---
Date of Service September 21, 2023 Assessment & Plan (1) Leukocytosis: Plan: -Admit to med/tele -Presented to the ED with progressive generalized weakness, poor oral intake, and recurrent diarrhea over the past 48-72 hours -Noted to have a Leukocytosis of 19 with neutrophil predominance of 15, both increased compared to discharge on 09/04 -Blood cultures were obtained in the ED and patient was given one dose of ceftriaxone -At this time the most likely etiology of his new leukocytosis is diarrheal illness, high suspicion for C. diff as he has a previous hx and has been on multiple different abx over the past month -Procal and lactate are WNL -Waiting on UA and Stool studies to result -Will obtain CXR on exam -Will give one dose of 125 mg PO Vancomycin on admission but will wait for stool studies to result to continue treatment -Patient is currently covered for the next 24 hours with Ceftriaxone per blood and urine cultures from the last admission; will hold additional IV abx for now as he is clinically stable -Will hold additional IV fluids until chest xray is obtained as his exam is consistent with volume overload -Will continue home Warfarin for DVT PPX -Will hold prednisone and Abiraterone for now with acute infection, if patient were to become unstable would start stress dosed steroids -HH diet with 2gm sodium restriction and easy to chew diet -Will order boost as well for additional nutritional support -If patient continues clinical decline during this admission would consider setting up home hospice prior to discharge -AM CBC, BMP, mag, PT/INR On 09/18, Appears to be improving with above antibiotics. will continue and monitor inflammatory markers. On 09/19 Continues to improve. DIarrhea has subsided. right Ankle sprain however will likely delay discharge. WIll need to obtain x rays, may need ASO, and will have PT/OT eval patient. On 09/20 ordered ASO brace On 09/21 Patient reports continuing to have ankle pain. (2) Weakness generalized: Plan: -Likely a combination of deconditioning with recent admission, progression of his chronic medical conditions, malnutrition with dehydration, and acute infection -Patient and family deny recent falls while using walker but significantly more weak than baseline -Fall precautions, PT/OT consulted (3) Hypokalemia: Plan: -Noted to be 2.9 today -Likely due to poor oral intake and recent diarrhea -S/P 2 bags of 10 meq IV KCL in the ED -Will give an additional 3 bags of 10 meq IV KCL on admission -Mag WNL -Will hold oral KCL for now to avoid GI distress with recent poor oral intake -Monitor on tele -Will monitor evening K+ level to determine need for additional replacement overnight (4) Diarrhea: Plan: -Follow stool studies -Will give one dose of 125 mg PO Vancomycin on admission for empiric C.diff treatment with current diarrhea, recent abx use, and hx of C.diff -Will wait to order additional ABX until infectious workup is back (5) Elevated troponin: Plan: -Initial high sen trop elevated at 29 -->27 on 2 hour repeat -Patient denies chest discomfort and SOB -No acute ST segment or T-wave changes on ECG -Likely due to demand -Continue to monitor on tele (6) Atrial fibrillation: Plan: -Currently in rate controlled afib -INR is 1.9 today, likely due to not taking home Warfarin over the past 3 days due to poor oral intake -Not on rate or rhythm controlling medications after last admission -Will give a home dose of Wafarin on admission, continue daily based on daily INR -If patient is heading towards home hospice then consider discontinuing based on discussions with patient and family (7) Hypothyroidism: Plan: -Will obtain TSH with free T-4 as he has not been taking his levothyroxine over the past 3 days -Continue home levothyroxine for now (8) Chronic indwelling Perez catheter: Plan: -Replaced in the ED just prior to admission -Continue chronic perez placement and maintenance will replace if unable to reposition as patient is having leakage (9) CKD (chronic kidney disease): Plan: -Cr today is 1.4, baseline is near 1.1 prior to last admission -Still recovering from [facility] last admission -Avoid nephrotoxic agents, will follow UA -Monitor daily renal function Admission and Anticipated Discharge Date Admission Date: September 16, 2023 Subjective Patient reports no new symptoms. Review of Systems Review of Systems: All systems reviewed & are unremarkable except as noted in HPI & below Physical Exam Physical Exam: General: Appears fatigued and chronically ill but nontoxic HEENT: Atraumatic, normocephalic. Pulm: Symmetrical chest rise. No increased work of breathing. No respiratory distress. Extremities: Warm/dr MSK: swelling on lateral right ankle, tender to palpation. Results & Data Results & Data Vital Signs (Past 12 Hours) Vital Signs Temp Pulse Pulse Resp BP Pulse Ox O2 Del Method 09/21/23 19:05 36.8 C 62 18 131/58 L 98 Room Air 09/21/23 15:34 36.7 C 52 L 18 144/61 H 96 Room Air 09/21/23 14:09 58 L 09/21/23 12:14 36.6 C 56 L 18 131/58 L 97 Room Air PG Care Time/CCT Total # of Minutes Spent Total Time Spent with Patient: Total time spent is greater than 50% in coordination of care (as documented) at patient's floor/unit and/or counseling patient: Coding Level of Care Code 52168 SUB INP/OBS CARE 2/35MIN Diagnoses Leukocytosis D72.829 Weakness generalized R53.1 Hypokalemia E87.6 Diarrhea R19.7 Elevated troponin R79.89 Atrial fibrillation I48.91 Hypothyroidism E03.9 Chronic indwelling Perez catheter Z97.8 CKD (chronic kidney disease) N18.9
[2023-09-22] MEDS: LEVOTHYROXINE SODIUM 150 MCG TABLET PO SCH (05:51)
[2023-09-22 06:04] LABS: Hematocrit (blood only) 23.5 % (42.0-52.0); Hemoglobin 7.7 g/dl (14.0-18.0); Mean Corpuscular Hemoglobin 28.7 pg (25.0-34.0); Mean Corpuscular Hgb Conc 32.8 g/dL (32.0-36.0); Mean Corpuscular Volume 87.7 fL (80.0-100.0); Mean Platelet Volume 12.6 fL (9.4-12.4); Platelet Count 300 K/uL (130-400); RDW Coefficient of Variation 15.9 % (11.5-14.5); RDW Standard Deviation 50.7 fL (36.4-46.3); Red Blood Count 2.68 M/uL (4.70-6.10); White Blood Count 10.85 K/ul (4.8-10.8)
[2023-09-22 06:10] LABS: BUN Creatinine Ratio 20.5 (10-20); C Reactive Protein 14.15 mg/dl (0-0.5); Calcium 7.4 mg/dl (8.6-10.3); Creatinine Clr Calc Pharmacy 32.7 ml/min; Est GFR (African American) 49.1 ml/min; Est GFR (Non-African American) 42.3 ml/min; Potassium 3.9 mmol/L (3.5-5.1)
[2023-09-22 06:23] LABS: INR 2.6 (0.9-1.1); Prothrombin Time 27.2 Seconds (9.0-12.0)
[2023-09-22] MEDS: MAGNESIUM OXIDE 400 MG TAB PO SCH (07:42)
[2023-09-22] MEDS: FERROUS SULFATE 325 MG TAB PO SCH (07:42)
[2023-09-22] MEDS: FIDAXOMICIN 200 MG TAB PO SCH (07:42)
--- NOTE | 2023-09-22 13:11 | Discharge Summary ---
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 He remained stable in the ED. Labs were significant for a leukocytosis of 19 with neutrophil predominance of 15, INR of 1.9, Cr of 1.4 (baseline is near 1.1), BUN of 25, potassium of 2.9, total bili of 1.2 with other LFTs WNL, initial high sen trop of 29, with lactate and procal WNL and full respiratory biofire negative. Prior to admission the patient was given 1L NSS, 2 bags of 10 meq IV KCL, 2gm IV ceftriaxone, and his perez cath was being exchanged prior to UA collection. At the time of the exam the patient was lying in bed in no acute distress currently having his perez cath exchanged; history was obtained from the patient and his daughter who is at the bedside. Since discharge on 09/04 the patient has been experiencing very poor oral intake, increased generalized weakness, and multiple episodes of diarrhea. His daughter states that he has had at least 4 episodes of watery, green diarrhea over the past 48 hours. He states that he has not had an appetite over this time but would want to try clears and boost for now. He had an obstructed perez earlier this week but this was flushed at the Urology office. His daughter said he has had low grade fevers but nothing over 100F. He denies recent chest pain, SOB, cough, abd pain, and recent trauma. We discussed goals of care and code status moving forward. They are already in the process of looking into home hospice in the future and have already had one tele appointment with Emma Gibson. The patient wishes to be a DNR/DNI. The patient was recently admitted to [facility] from 08/31-09/04 with vomiting, decreased oral intake, and decreased urinary output. He was found to have both klebsiella and E. coli bacteremia thought to be from a complicated UTI. Cultures were pansensitive for both. He was started on IV ceftriaxone and ID was consulted. They recommended switching to Cefazolin while admitted with transition to PO Cefuroxime on discharge with an end date of 09/07/23. Please refer to Dr. Elkins's attestation for any changes to the treatment plan Discharge Exam General: Appears fatigued and chronically ill but nontoxic HEENT: Atraumatic, normocephalic. Pulm: Symmetrical chest rise. No increased work of breathing. No respiratory distress. Extremities: Warm/dr GOMEZ: swelling on lateral right ankle, tender to palpation. Discharge Data Allergies Allergy/AdvReac Type Severity Reaction Status Date / Time No Known Allergies Allergy Verified 09/16/23 13:26 Consultations 09/16/23 14:21 ED Decision to Admit Stat Hospital Course (1) Leukocytosis: -Admit to med/tele -Presented to the ED with progressive generalized weakness, poor oral intake, and recurrent diarrhea over the past 48-72 hours -Noted to have a Leukocytosis of 19 with neutrophil predominance of 15, both increased compared to discharge on 09/04 -Blood cultures were obtained in the ED and patient was given one dose of ceftriaxone -At this time the most likely etiology of his new leukocytosis is diarrheal illness, high suspicion for C. diff as he has a previous hx and has been on multiple different abx over the past month -Procal and lactate are WNL -Waiting on UA and Stool studies to result -Will obtain CXR on exam -Will give one dose of 125 mg PO Vancomycin on admission but will wait for stool studies to result to continue treatment -Patient is currently covered for the next 24 hours with Ceftriaxone per blood and urine cultures from the last admission; will hold additional IV abx for now as he is clinically stable -Will hold additional IV fluids until chest xray is obtained as his exam is consistent with volume overload -Will continue home Warfarin for DVT PPX -Will hold prednisone and Abiraterone for now with acute infection, if patient were to become unstable would start stress dosed steroids -HH diet with 2gm sodium restriction and easy to chew diet -Will order boost as well for additional nutritional support -If patient continues clinical decline during this admission would consider set ting up home hospice prior to discharge -AM CBC, BMP, mag, PT/INR On 1/13, Appears to be improving with above antibiotics. will continue and monitor inflammatory markers. On 09/19 Continues to improve. DIarrhea has subsided. right Ankle sprain however will likely delay discharge. WIll need to obtain x rays, may need ASO, and will have PT/OT eval patient. On 09/20 ordered ASO brace On 09/21 Patient reports continuing to have ankle pain. (2) Weakness generalized: -Likely a combination of deconditioning with recent admission, progression of his chronic medical conditions, malnutrition with dehydration, and acute infection -Patient and family deny recent falls while using walker but significantly more weak than baseline -Fall precautions, PT/OT consulted (3) Hypokalemia: -Noted to be 2.9 today -Likely due to poor oral intake and recent diarrhea -S/P 2 bags of 10 meq IV KCL in the ED -Will give an additional 3 bags of 10 meq IV KCL on admission -[facility] -Will hold oral KCL for now to avoid GI distress with recent poor oral intake -Monitor on tele -Will monitor evening K+ level to determine need for additional replacement overnight (4) Diarrhea: -Follow stool studies -Will give one dose of 125 mg PO Vancomycin on admission for empiric C.diff treatment with current diarrhea, recent abx use, and hx of C.diff -Will wait to order additional ABX until infectious workup is back (5) Elevated troponin: *Demand ischemia High sensitivity trop peaked at high 20s. -Initial high sen trop elevated at 29 -->27 on 2 hour repeat -Patient denies chest discomfort and SOB -No acute ST segment or T-wave changes on ECG -Likely due to demand -Continue to monitor on tele (6) Atrial fibrillation: -Currently in rate controlled afib -INR is 1.9 today, likely due to not taking home Warfarin over the past 3 days due to poor oral intake -Not on rate or rhythm controlling medications after last admission -Will give a home dose of Wafarin on admission, continue daily based on daily INR -If patient is heading towards home hospice then consider discontinuing based on discussions with patient and family (7) Hypothyroidism: -Will obtain TSH with free T-4 as he has not been taking his levothyroxine over the past 3 days -Continue home levothyroxine for now (8) Chronic indwelling Perez catheter: -Replaced in the ED just prior to admission -Continue chronic perez placement and maintenance will replace if unable to reposition as patient is having leakage (9) CKD (chronic kidney disease): -Cr today is 1.4, baseline is near 1.1 prior to last admission -Still recovering from [facility] last admission -Avoid nephrotoxic agents, will follow UA -Monitor daily renal function *Severe protein-calorie malnutrition Pt w/hx malnutrition presents with weakness, dehydration, C.diff diarrhea, prostate/bladder cancer. Placed on easy to chew diet/boost nutritional support. Risk Factor(s): As above Treatment: Weights, I&O, RD consult Discharge Plan Discharge Items Reason For Visit: GEN WEAKNESS, POOR ORAL INTAKE, HYPOKALEMIA, LEUKO Follow-up/Referrals: Sudheer Buchanan, [Primary Care Provider] - Medications and DC Order Prescriptions: No Action atorvastatin 20 mg tablet 20 mg PO QPM Qty: 90 3RF levothyroxine 150 mcg tablet 150 mcg PO DAILY Qty: 90 3RF ferrous sulfate 325 mg (65 mg iron) tablet 325 mg PO DAILY 90 Days Qty: 90 3RF cholecalciferol (vitamin D3) 25 mcg (1,000 unit) capsule 25 mcg PO DAILY Qty: 90 3RF abiraterone 250 mg tablet 1,000 mg PO DAILY Qty: 120 2RF Rx Instructions: must be taken on empty stomach, at least 1 hr before or 2 hrs after a meal/food prednisone 5 mg tablet 5 mg PO DAILY Qty: 30 0RF Hold Instructions: Resume on 09/08/23. warfarin 5 mg tablet 5 mg PO DAILY Qty: 30 2RF Hold Instructions: Resume on 09/07/23. Protocol: Dose Management Condition: Wednesday Dose/Route: 5 mg Instruction: 1 x 5 mg tablet Condition: Wednesday Dose/Route: 5 mg Instruction: 1 x 5 mg tablet Condition: Wednesday Dose/Route: 5 mg Instruction: 1 x 5 mg tablet Condition: Wednesday Dose/Route: 5 mg Instruction: 1 x 5 mg tablet Condition: Dose/Route: 5 mg Instruction: 1 x 5 mg tablet Condition: Wednesday Dose/Route: 5 mg Instruction: 1 x 5 mg tablet Condition: Wednesday Dose/Route: 5 mg Instruction: 1 x 5 mg tablet Protocol Text: Adjustment Start Date: Wednesday08/24/23 INR Value: 1.0 INR Date: 08/23/23 Recheck Date: 08/31/23 Admission Data Admit Date/Time: 09/16/23 14:32 Attending Provider: Luciano Meyer Admit Provider: Oskar Elkins Primary Care Provider: Sudheer Buchanan Other Providers: Oskar Elkins; 365,Hospice Coding Diagnoses Leukocytosis D72.829 Weakness generalized R53.1 Hypokalemia E87.6 Diarrhea R19.7 Elevated troponin R79.89 Atrial fibrillation I48.91 Hypothyroidism E03.9 Chronic indwelling Perez catheter Z97.8 CKD (chronic kidney disease) N18.9
== END 2023-09-22 14:16 | disposition hospice, home (50) | DRG 371 ==
LOC: ED 11:08 → EDINP 14:32 → SUATTDRO 14:32 → 2W 16:06

== ENCOUNTER 2024-08-04 08:58 | Observation (INO) ==
--- NOTE | 2024-08-04 09:09 | Emergency Department Note ---
Impression & Plan Bradycardia, Anemia, Nausea & vomiting, CKD (chronic kidney disease), Fatigue, Acute dehydration ED Provider Note NAME: ZENOBIA SMILEY Jr AGE: 89 SEX: M : 1935 ARRIVES VIA: Ambulance INFORMANT: Patient, Daughter ED PROVIDER(S): Hung Matt MD CHIEF COMPLAINT: Vomiting MEDICAL DECISION MAKING: Patient presents due to concern for vomiting. Patient has been more fatigable and tired and was noted to have heart rate in the 40s. Likely slow A-fib based on EKG. Patient's blood work within normal white count hemoglobin improved compared to prior anemia present. Platelet count is unremarkable. Kidney function at chronic baseline creatinine 1.8 today. Troponin not elevated. After further discussion with Dr. Martell he stated that the patient's morphology is grossly unchanged no evidence of complete heart block states that at his current rate unlikely to necessarily cause his symptoms but could consider a monitor. I was overall underlying lethargy and fatigue may be due to his chronic illnesses as well. If that it reasonable for inpatient versus outpatient follow-up. After further discussion with the patient the patient's daughter they elected inpatient treatment at this time. I did speak with the on-call hospital service BRANDIE Torres PA-C and Dr. Elkins. Patient was admitted to medicine service. Patient was ordered IV fluids 500 bolus. Discussion w/ other healthcare providers: Dr. Martell cardiology BRANDIE Torres PA-C and Dr. Elkins Prior /Outside records reviewed: I reviewed part of a discharge summary from September 22, [address] Meyer. Known history of prostate cancer status post brachytherapy in 2002 on Lupron abiraterone steroids bladder cancer Fu in place A-fib on Coumadin prior splenectomy. Patient was admitted at that time due to concern for associated leukocytosis thought secondary to C. difficile colitis. Patient treated with Dificid at that time. Differential diagnosis: Bradycardia, gastroenteritis, food borne illness, infection, appendicitis, diverticulitis, inflammatory bowel disease, obstruction among others were considered. Diagnostics, as interpreted by me: ECG: Likely slow A-fib rate of 49, wide QRS, right bundle branch block pattern, left axis deviation, T wave versions anteriorly and in the aVL. Morphology grossly unchanged from comparison but rate is slower than before comparison September 16, 2023 which sounded patient's heart rate was 73 Cardiac monitoring: An order was placed for continuous cardiac monitoring. The monitor shows a rate of 49 with irregular irregular rhythm. Patient was placed on pulse oximetry Medical decision rules: None Imaging studies: I informally interpreted the patient's chest x-ray does not show obvious pneumonia with formal report to follow. HPI: Patient presents due to concern for vomiting this morning. Patient reportedly threw up after breakfast but feels improved. No abdominal pain patient denies any chest pain or shortness of breath. Patient was noted to have a lower heart rate in the care facility was concerned. Patient denies any falls or trauma. Currently not on any anticoagulant medication due to bleeding risk and issues with hematuria and clots. Patient reports that he did have his catheter out 2 days prior. Patient states that he has been urinating without issue. No issues with defecation. Patient did have a recent diagnosed back fracture and the daughter at bedside thinks that maybe some of the pain may also be causing him to vomit as he is very sensitive to pain. He currently resides at [facility]. PAST MEDICAL HISTORY: See Below PAST SURGICAL HISTORY: See Below SOCIAL HISTORY: See Below HOME MEDICATIONS: See Below ALLERGIES: See Below VITALS: See Below PHYSICAL EXAMINATION: GENERAL: NAD, non-toxic. EYE EXAM: Normal conjunctiva. PERRL, no anisocoria and EOM's grossly intact w/o pain. OROPHARYNX: Dry mucus membranes, grossly normal dentition. NECK: Trachea midline, no stridor. Supple, no nuchal rigidity, no adenopathy, non-tender. No signs of meningismus. FROM of the neck with good chin to chest and neck extension. LUNGS: Clear to auscultation. Normal chest wall mechanics. HEART: Bradycardic and irregular, systolic ejection murmur noted. ABDOMEN: Abdomen soft, non-tender, no masses, no rebound or guarding. BACK: No CVA TTP. SKIN: No rashes and no bruising. UPPER EXTREMITIES: Upper extremities are grossly normal. LOWER EXTREMITIES: Grossly normal, no edema. Excoriations noted to the distal portion of the right lower extremity without calor or crepitus or drainage. No TTP. NEURO EXAM: A&O x3, cranial nerves II-XII grossly intact, normal speech, moves all 4 extremities. Past Med/Surg History Problem List (Updated 08/04/24 @ 14:45 by Hung Matt MD) Acute dehydration (Acute) Fatigue (Acute) CKD (chronic kidney disease) (Acute) Nausea & vomiting (Acute) Bradycardia (Acute) Cellulitis of right leg Bradycardia Closed compression fracture of L1 vertebra (Acute) Low back pain (Acute) Non-ST elevation DC (NSTEMI) (Acute) Acute UTI (urinary tract infection) (Acute) Acute hypokalemia (Acute) Diarrhea (Acute) Leukocytosis (Acute) Weakness (Acute) Elevated troponin Hypokalemia Diarrhea CKD (chronic kidney disease) End of life care Complicated UTI (urinary tract infection) Gram-negative bacteremia Social isolation Weakness generalized Advanced care planning/counseling discussion Palliative care by specialist Goals of care, counseling/discussion Lactate blood increase Subtherapeutic international normalized ratio (INR) Leukocytosis Chronic indwelling Fu catheter [facility] (acute kidney injury) (Acute) Nausea and vomiting Hypertrophic toenail On Coumadin for atrial fibrillation Hypothyroidism Hematuria Urinary retention Fu catheter in place (Acute) Hyperlipemia Urethral CA Prostate cancer Atrial fibrillation Anemia (Acute) Medical History Kidney stone Social History Smoking Status: Former smoker Tobacco Type: Cigars Hx Alcohol Use: No Hx Substance Use: No Preferred Language: Faroese Communication Ability: Effective Seam Stayer Required: No Beliefs That Will Affect Care: None Current Living Situation: Family Current Living Situation Comment: lives with daughter Feels Safe at Home: Yes Assistive Devices: Walker Allergies Allergies Allergy/AdvReac Type Severity Reaction Status Date / Time tramadol AdvReac Severe Vomiting/Zombie Unverified 08/04/24 11:22 like [facility] Home Meds Home Medications Medication Instructions Recorded Confirmed acetaminophen 500 mg tablet 1,000 mg PO Q4H PRN Pain/Fever 08/04/24 08/04/24 acetaminophen 650 mg rectal 650 mg VT Q4H PRN Elevated Temp 08/04/24 08/04/24 suppository carboxymethylcellulose sodium 1 % 1 drp OPB TID Dry Eye 08/04/24 08/04/24 eye drops (Artificial Tears (carboxymethylcellulose)) cephalexin 500 mg capsule 500 mg PO TID 08/04/24 08/04/24 diphenhydramine HCl 25 mg capsule 25 mg PO Q6H PRN Itching 08/04/24 08/04/24 (Benadryl) furosemide 40 mg tablet (Lasix) 20 mg PO BID 08/04/24 08/04/24 ibuprofen 200 mg tablet 200 mg PO Q6H PRN Mild Pain (Scale 08/04/24 08/04/24 Score 1-4) levothyroxine 125 mcg tablet 125 mcg PO DAILY 08/04/24 08/04/24 lidocaine 5 % topical ointment 1 applic topical DAILY PRN 08/04/24 08/04/24 Discomfort when changing catheter loperamide 2 mg capsule 2 mg PO Q4H PRN Diarrhea 08/04/24 08/04/24 ondansetron 4 mg disintegrating 4 mg PO Q4H PRN Nausea And Vomiting 08/04/24 08/04/24 tablet phenazopyridine 95 mg tablet 0 mg PO TIDWMEAL PRN Urinary 08/04/24 08/04/24 (Urinary Pain Relief) Discomfort polyethylene glycol 3350 17 gram 17 g PO DAILY PRN Constipation 08/04/24 08/04/24 oral powder packet (Miralax) potassium chloride 10 mEq 20 meq PO DAILY 08/04/24 08/04/24 tablet,extended release tramadol 50 mg tablet 50 - 100 mg PO UD PRN Mod/Severe 08/04/24 08/04/24 Pain Previous Rx's Medication Instructions Recorded ferrous sulfate 325 mg (65 mg 325 mg PO DAILY 90 days #90 tabs 08/11/23 iron) tablet atorvastatin 20 mg tablet 20 mg PO QPM #90 tabs 10/27/23 Results & Data (ED) Vital Signs Vital Signs - 24 hr 08/04/24 09:09 08/04/24 09:12 08/04/24 09:12 Temperature 36.3 C L Temperature Source Oral Pulse Rate 46 L 47 L Respiratory Rate 20 Respiratory Effort / Characteristics Non-Labored Non-Labored Respiratory Depth Normal Normal Blood Pressure 140/61 Blood Pressure Mean 87 Pulse Oximetry 97 Oxygen Delivery Method Room Air Sepsis Recent Fever Within 48 Hours No Sepsis New/Unexplained Change in Mental Status No Sepsis Action Taken by Nursing No Action Required Laboratory Data 08/04/24 09:10 08/04/24 09:10 Lab Results 08/04/24 08/04/24 Range/Units 09:10 09:24 WBC 9.75 (4.8-10.8) K/ul RBC 3.10 L (4.70-6.10) M/uL Hgb 9.1 L (14.0-18.0) g/dl Hct 29.1 L (42.0-52.0) % MCV 93.9 (80.0-100.0) fL MCH 29.4 (25.0-34.0) pg MCHC 31.3 L (32.0-36.0) g/dL RDW Std Deviation 60.5 H (36.4-46.3) fL RDW Coeff of Brittany 17.6 H (11.5-14.5) % Plt Count 255 (130-400) K/uL MPV 12.9 H (9.4-12.4) fL Immature Gran % (Auto) 0.3 % Neut % (Auto) 55.7 % Lymph % (Auto) 15.4 % [place] % (Auto) 27.1 % Eos % (Auto) 1.4 % Baso % (Auto) 0.1 % Neut # (Auto) 5.43 (1.40-6.50) K/uL Lymph # (Auto) 1.50 (1.20-3.40) K/uL [place] # (Auto) 2.64 H (0.11-0.59) K/uL Eos # (Auto) 0.14 (0.00-0.50) K/uL Baso # (Auto) 0.01 (0.00-0.20) K/uL Immature Gran # (Auto) 0.03 (0.01-0.20) K/uL Sodium 138 (136-145) mmol/L Potassium 5.0 (3.5-5.1) mmol/L Chloride 107 (98-107) mmol/L Carbon Dioxide 24 (21-32) mmol/L Anion Gap 7 (3-11) BUN 47 H (6-23) mg/dl Creatinine 1.87 H (0.6-1.4) mg/dl Est Cr Clr Drug Dosing 23.9 ml/min eGFR 33.95 BUN/Creatinine Ratio 25.1 H (10-20) Glucose 166 H (70-99(Fasting)) mg/dl POC Glucose 172 H (70-99) mg/dl Calcium 8.7 (8.6-10.3) mg/dl Phosphorus 3.3 (2.5-4.9) mg/dl Magnesium 2.0 (1.7-2.4) mg/dl Total Bilirubin 0.8 (0.2-1.0) mg/dl AST 9 L (13-39) U/L ALT 5 L (7-52) U/L Alkaline Phosphatase 80 (34-104) U/L Troponin I High Sens 15.0 (0-20) pg/ml C-Reactive Protein 8.82 H (0-0.5) mg/dl Total Protein 7.4 (6.0-8.3) gm/dl Albumin 2.8 L (3.4-5.0) gm/dl Globulin 4.6 H (2.5-4.0) gm/dl Albumin/Globulin Ratio 0.6 L (0.9-2) Lipase 151 H (11-82) U/L TSH 3.641 (0.300-4.500) uIu/ml Administered Medications Discontinued Medications Sodium Chloride (Nss) 500 mls @ 999 mls/hr IV .Q31M ONE Stop: 08/04/24 10:15 Last Infusion: 08/04/24 10:49 Dose: Infused Documented By: Admin: 08/04/24 09:50 Dose: 999 mls/hr Documented By: THIAGO Pantoprazole Sodium (Protonix) 40 mg in 10 mls @ 5 mls/min IV NOW ONE Stop: 08/04/24 12:02 Last Admin: 08/04/24 13:54 Dose: 5 mls/min Documented By: HECTOR Ondansetron HCl (Ondansetron Inj 2 Mg/Ml 2 Ml Vial) 4 mg IV NOW STA Stop: 08/04/24 12:12 Last Admin: 08/04/24 12:16 Dose: 4 mg Documented By: HECTOR Ondansetron HCl (Ondansetron Inj 2 Mg/Ml 2 Ml Vial) Confirm Administered Dose 4 mg .ROUTE .STK-MED ONE Stop: 08/04/24 12:13 Last Admin: 08/04/24 12:16 Dose: Not Given Documented By: HECTOR Imaging Data Radiologist's Impression: Chest X-Ray 08/04/24 09:23 XR chest 1V portable CLINICAL HISTORY: weakness COMPARISON STUDY: Chest radiograph September 16, 2023. FINDINGS: There is no pneumothorax or pleural effusion. There are median sternotomy wires and left axillary surgical clips. Cardiomegaly is unchanged. There is pulmonary vascular congestion without overt pulmonary edema. This is similar to prior exam. There is no consolidation to suggest pneumonia. IMPRESSION: Cardiomegaly with pulmonary vascular congestion, similar to prior exam. ACT 112: Negative or not required by law. Electronically signed by: Donald Pena M.D. 08/04/2024 9:48 AM Discharge Plan Visit Data Chief Complaint: Vomiting Stated Complaint: VOMITING ED Provider: Hung Matt Discharge Problem: Bradycardia, Anemia, Nausea & vomiting, CKD (chronic kidney disease), Fatigue, Acute dehydration Discharge Problem: Anemia Qualifiers: Anemia type: unspecified type Qualified Code(s): D64.9 - Anemia, unspecified Nausea & vomiting Qualifiers: Vomiting type: unspecified Qualified Code(s): R11.2 - Nausea with vomiting, unspecified CKD (chronic kidney disease) Qualifiers: Chronic kidney disease stage: unspecified stage Qualified Code(s): N18.9 - Chronic kidney disease, unspecified Fatigue Qualifiers: Fatigue type: unspecified Qualified Code(s): R53.83 - Other fatigue
[2024-08-04 09:34] LABS: Basophils # (auto) 0.01 K/uL (0.00-0.20); Basophils % (auto) 0.1 %; Eosinophils # (auto) 0.14 K/uL (0.00-0.50); Eosinophils % (auto) 1.4 %; Hematocrit (blood only) 29.1 % (42.0-52.0); Hemoglobin 9.1 g/dl (14.0-18.0); Immature Granulocytes # (auto) 0.03 K/uL (0.01-0.20); Immature Granulocytes % (auto) 0.3 %; Lymphocytes % (auto) 15.4 %; Mean Corpuscular Hemoglobin 29.4 pg (25.0-34.0); Mean Corpuscular Hgb Conc 31.3 g/dL (32.0-36.0); Mean Corpuscular Volume 93.9 fL (80.0-100.0); Mean Platelet Volume 12.9 fL (9.4-12.4); Monocytes # (auto) 2.64 K/uL (0.11-0.59); Monocytes % (auto) 27.1 %; Neutrophils # (auto) 5.43 K/uL (1.40-6.50); Neutrophils % (auto) 55.7 %; Platelet Count 255 K/uL (130-400); RDW Coefficient of Variation 17.6 % (11.5-14.5); RDW Standard Deviation 60.5 fL (36.4-46.3); White Blood Count 9.75 K/ul (4.8-10.8)
[2024-08-04] MEDS: SODIUM CHLORIDE 0.9% 500 ML IV ONE (09:50)
--- NOTE | 2024-08-04 09:50 | XRay Report ---
XR chest 1V portable CLINICAL HISTORY: weakness COMPARISON STUDY: Chest radiograph September 16, 2023. FINDINGS: There is no pneumothorax or pleural effusion. There are median sternotomy wires and left ax illary surgical clips. Cardiomegaly is unchanged. There is pulmonary vascular congestion without over t pulmonary edema. This is similar to prior exam. There is no consolidation to suggest pneumonia. IMPRESSION: Cardiomegaly with pulmonary vascular congestion, similar to prior exam. ACT 112: Negative or not required by law. Electronically signed by: Donald Pena M.D. 08/04/2024 9:48 AM
[2024-08-04 09:52] LABS: Albumin Globulin Ratio 0.6 (0.9-2); Albumin Level 2.8 gm/dl (3.4-5.0); BUN Creatinine Ratio 25.1 (10-20); Bilirubin,Total 0.8 mg/dl (0.2-1.0); Calcium 8.7 mg/dl (8.6-10.3); Creatinine Clr Calc Pharmacy 23.9 ml/min; Globulin 4.6 gm/dl (2.5-4.0); Phosphorus 3.3 mg/dl (2.5-4.9); Total Protein 7.4 gm/dl (6.0-8.3)
[2024-08-04 10:06] LABS: Thyroid Stimulating Hormone 3.641 uIu/ml (0.300-4.500)
--- NOTE | 2024-08-04 11:25 | History & Physical Report ---
Date of Service August 04, 2024 Assessment & Plan (1) Nausea and vomiting: Plan: Acute onset of N/V on the morning of 08/04 Nausea and vomiting resolved on ED arrival No h/o SBO; no abd pain Suspect this could be due to starting new medications: Tramadol last night; or (less likely) Keflex on 08/02 for cellulitis IV antiemetics as needed; QTc okay at 480 A.m. CBC, BMP, CRP (2) Closed compression fracture of L1 vertebra: Plan: Lumbar spine x-ray on 07/25 revealed a compression fracture at L1 (age- indeterminate) Hold tramadol Scheduled acetaminophen q8h Lidocaine patch daily Heat application as needed Fall precautions (3) Bradycardia: Plan: HR in the 40-50bpm range in the ED Patient/patient's daughter open to speaking with cardiology regarding potential pacemaker placement Continuous telemetry monitoring Cardiology consult appreciated (4) Atrial fibrillation: Plan: Patient was taken off of warfarin therapy in November 2023 due to hematuria/blood clots causing urinary retention Will defer additional chemical DVT PPx at this time, as patient reports has been doing well without blood thinners Not currently on rate control medications Continuous telemetry monitoring (5) Cellulitis of right leg: Plan: Patient placed on Keflex on 08/02 for RLE cellulitis No history of cellulitis to his knowledge RLE Doppler ordered, pending CRP ordered, pending Continue Keflex TID (6) Chronic indwelling Fu catheter: Plan: Patient had his Fu catheter changed 2 days ago H/o recurrent UTIs Patient reports that since his catheter was removed, he has had no burning with urination, dysuria, or hematuria Will defer urinalysis on arrival, as suspect that N/V is due to tramadol use If N/V does not resolve, will add on UA (7) Anemia: Plan: Chronic; Hgb 9.1 on arrival (improved from prior) Clinically, no signs of active bleeding on physical exam Trend H&H with daily CBCs (8) Prostate cancer: Plan: History of prostate cancer with metastasis (9) Advanced care planning/counseling discussion: Plan: Patient was recently discharged from hospice as he was doing much better Plan Disposition: Obs -admit to [facility] telemetry DNR/DNI Regular diet VTE PPx: Will defer chemical DVT PPx due to history of hematuria/blood clots causing urinary retention; defer mechanical DVT PPx due to RLE cellulitis History of Present Illness Chief Complaint: Vomiting Primary Care Provider: John Rangel DO Florentin is an 89-year-old male with PMH of atrial fibrillation (formerly on warfarin), prostate cancer with metastasis, C. difficile infection, HLD, urinary retention, chronic indwelling Fu catheter, recurrent UTIs, and NSTEMI. He presented via EMS from [facility] on 08/04 for acute onset of vomiting after eating breakfast this morning. Patient's daughter (Jaylin) is at bedside and provides additional history. Patient reports that he felt fine yesterday; no nausea or vomiting. He then ate breakfast this morning and had 1 episode of nausea and vomiting, and while he has not vomited since, he has had nausea and dry heaves. Patient was diagnosed with a compression fracture last week, and reports that he started taking tramadol yesterday. Patient's daughter reports that he took tramadol years back, and had to stop due to side effects (lethargy; no history of N/V with tramadol). Patient's daughter also reports that he develops nausea and vomiting whenever he goes through a "transition"; for instance, when patient used to live with his daughter, whenever he would go over to his other daughter's house he would develop nausea and vomiting. No sick contacts. No history of SBO. Patient does have history of cholecystectomy many years ago, and pancreatitis. Patient reports that he took his regular morning medicine at breakfast today. Only recent change in medications were tramadol, and that he has been taking an antibiotic for his RLE cellulitis; Keflex prescribed on 08/02. No prior history of cellulitis. No history of MRSA infections. No weeping or purulent drainage from the leg. No recent falls or injuries to the head/neck/abdomen/legs. Patient ambulates with a walker at baseline, but has been largely sedentary ever since his diagnosis of compression fracture. Additionally, patient had his urinary catheter removed 2 days ago as it was causing pain. 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 Patient was previously on hospice care, but was discharged from hospice recently as he was doing much better. He reports he does have a history of "slow heart rate". Additionally, he does have history of nausea/vomiting with UTIs. No history of DVT/PE. Patient reports his right lower leg was initially itchy, but this has resolved. Patient denies smoking, tobacco use, recent alcohol use. NKDA. Patient reports he has no antibiotic allergies. Patient is mildly bradycardic at 47 bpm at time of admission; vitals otherwise stable. Cellulitis RLE Former itching and pain ED course: NSS 500 mL IV ROS: Patient endorses acute nausea and vomiting, fatigue, redness and swelling in the RLE, and intermittent burning with urination. Patient denies fever, chills, night-sweats, dizziness, lightheadedness, chest pain, SOB, cough, abdominal pain, diarrhea, dysuria, hematuria, or pain in legs. Allergies Allergy/AdvReac Type Severity Reaction Status Date / Time tramadol AdvReac Severe Vomiting/Zombie Unverified 08/04/24 11:22 like state Home Medications Medication Instructions Recorded Confirmed Type ferrous sulfate 325 mg (65 mg 325 mg PO DAILY 90 days #90 tabs 08/11/23 08/04/24 Rx iron) tablet atorvastatin 20 mg tablet 20 mg PO QPM #90 tabs 10/27/23 08/04/24 Rx acetaminophen 500 mg tablet 1,000 mg PO Q4H PRN Pain/Fever 08/04/24 08/04/24 History acetaminophen 650 mg rectal 650 mg AR Q4H PRN Elevated Temp 08/04/24 08/04/24 History suppository carboxymethylcellulose sodium 1 % 1 drp OPB TID Dry Eye 08/04/24 08/04/24 History eye drops (Artificial Tears (carboxymethylcellulose)) cephalexin 500 mg capsule 500 mg PO TID 08/04/24 08/04/24 History diphenhydramine HCl 25 mg capsule 25 mg PO Q6H PRN Itching 08/04/24 08/04/24 History (Benadryl) furosemide 40 mg tablet (Lasix) 20 mg PO BID 08/04/24 08/04/24 History ibuprofen 200 mg tablet 200 mg PO Q6H PRN Mild Pain (Scale 08/04/24 08/04/24 History Score 1-4) levothyroxine 125 mcg tablet 125 mcg PO DAILY 08/04/24 08/04/24 History lidocaine 5 % topical ointment 1 applic topical DAILY PRN 08/04/24 08/04/24 History Discomfort when changing catheter loperamide 2 mg capsule 2 mg PO Q4H PRN Diarrhea 08/04/24 08/04/24 History ondansetron 4 mg disintegrating 4 mg PO Q4H PRN Nausea And Vomiting 08/04/24 08/04/24 History tablet phenazopyridine 95 mg tablet 0 mg PO TIDWMEAL PRN Urinary 08/04/24 08/04/24 History (Urinary Pain Relief) Discomfort polyethylene glycol 3350 17 gram 17 g PO DAILY PRN Constipation 08/04/24 08/04/24 History oral powder packet (Miralax) potassium chloride 10 mEq 20 meq PO DAILY 08/04/24 08/04/24 History tablet,extended release tramadol 50 mg tablet 50 - 100 mg PO UD PRN Mod/Severe 08/04/24 08/04/24 History Pain Past Med/Surg History Problem List (Updated 08/05/24 @ 10:51 by Mattehw Guidry MD) Cellulitis of right lower extremity Acute worsening of stage 3 chronic kidney disease Acute dehydration (Acute) Fatigue (Acute) CKD (chronic kidney disease) (Acute) Nausea & vomiting (Acute) Bradycardia (Acute) Cellulitis of right leg Bradycardia Closed compression fracture of L1 vertebra (Acute) Low back pain (Acute) Non-ST elevation IN (NSTEMI) (Acute) Acute UTI (urinary tract infection) (Acute) Acute hypokalemia (Acute) Diarrhea (Acute) Leukocytosis (Acute) Weakness (Acute) Elevated troponin Hypokalemia Diarrhea CKD (chronic kidney disease) End of life care Complicated UTI (urinary tract infection) Gram-negative bacteremia Social isolation Weakness generalized Advanced care planning/counseling discussion Palliative care by specialist Goals of care, counseling/discussion Lactate blood increase Subtherapeutic international normalized ratio (INR) Leukocytosis Chronic indwelling Fu catheter MC (acute kidney injury) (Acute) Nausea and vomiting Hypertrophic toenail On Coumadin for atrial fibrillation Hypothyroidism Hematuria Urinary retention Fu catheter in place (Acute) Hyperlipemia Urethral CA Prostate cancer Atrial fibrillation Anemia (Acute) Medical History Kidney stone Social History Smoking Status: Former smoker Tobacco Type: Cigars Do You Dip or Chew Tobacco: No; Tobacco Cessation Education Requested by Patient: No Hx Alcohol Use: No Hx Substance Use: No Preferred Language: Cameroonian Communication Ability: Effective Facility Maintenance Mechanic Required: No Beliefs That Will Affect Care: None Current Living Situation: Assisted Current Living Situation Comment: lives with daughter Other Information That Helps Us Care for You: No Feels Safe at Home: Yes Safety Concerns: Feels Safe At This Time Assistive Devices: Wheelchair Review of Systems Review of Systems: See HPI above Physical Exam Physical Exam: General: no acute distress; lethargic; daughter at bedside; occasional dry heaving in the room; non-toxic appearing; frail appearing; cooperative; SpO2 97% on RA HEENT: normocephalic, atraumatic; no scleral icterus; PERRLA w/ EOMs intact; vision and hearing grossly intact Neck: supple; no lymphadenopathy; trachea midline Skin: warm, dry without signs of tenting; no cyanosis; no rashes, bruising, lesions, or erythema noted CV: chest wall NTP; irregularly irregular rhythm, bradycardic at 45 bpm; S1/S2 normal; no murmurs/rubs/gallops; pulses intact and symmetric at radial, DP, and PT Lungs: no acute respiratory distress; symmetrical chest wall expansion; clear breath sounds across all lung campbell w/o adventitious sounds; no wheezing ABD: Soft, NTP; BS present; no rebound/guarding; no distention MSK: no tics or fasciculations; +2 pitting edema in the lower extremities bilaterally extending up to the knees RLE: Erythematous with superficial excoriations noted on the medial aspect of the RLE; warm to touch Neuro: A&Ox3; normal mood and affect; fluent speech; no focal deficits; patient reports sensation is intact and symmetric in lower extremities bilaterally Results & Data Results & Data Vital Signs (Past 12 Hours) Vital Signs Temp Pulse Resp BP Pulse Ox O2 Del Method 08/04/24 09:12 36.3 C L 47 L 20 140/61 97 Room Air 08/04/24 09:09 46 L Laboratory Results Abnormal lab results 08/04/24 08/04/24 Range/Units 09:10 09:24 RBC 3.10 L (4.70-6.10) M/uL Hgb 9.1 L (14.0-18.0) g/dl Hct 29.1 L (42.0-52.0) % MCHC 31.3 L (32.0-36.0) g/dL RDW Std Deviation 60.5 H (36.4-46.3) fL RDW Coeff of Brittany 17.6 H (11.5-14.5) % MPV 12.9 H (9.4-12.4) fL [place] # (Auto) 2.64 H (0.11-0.59) K/uL BUN 47 H (6-23) mg/dl Creatinine 1.87 H (0.6-1.4) mg/dl BUN/Creatinine Ratio 25.1 H (10-20) Glucose 166 H (70-99(Fasting)) mg/dl POC Glucose 172 H (70-99) mg/dl AST 9 L (13-39) U/L ALT 5 L (7-52) U/L Albumin 2.8 L (3.4-5.0) gm/dl Globulin 4.6 H (2.5-4.0) gm/dl Albumin/Globulin Ratio 0.6 L (0.9-2) Diagnostic Findings Chest X-Ray 08/04/24 09:23 XR chest 1V portable CLINICAL HISTORY: weakness COMPARISON STUDY: Chest radiograph September 16, 2023. FINDINGS: There is no pneumothorax or pleural effusion. There are median sternotomy wires and left axillary surgical clips. Cardiomegaly is unchanged. There is pulmonary vascular congestion without overt pulmonary edema. This is similar to prior exam. There is no consolidation to suggest pneumonia. IMPRESSION: Cardiomegaly with pulmonary vascular congestion, similar to prior exam. ACT 112: Negative or not required by law. Electronically signed by: Donald Pena M.D. 08/04/2024 9:48 AM ECG Additional Comments: ECG revealed undetermined rhythm at 49 bpm; QTc 480 Most recent EKG in September 2023 did reveal atrial fibrillation at 73 bpm Code Status & VTE Plan Code Status DNR/DNI (discussed with patient and patient's daughter at bedside) VTE Prophylaxis Plan VTE Prophylaxis will be ordered: No Supervising Physician Co-Signing Physician Notes I personally saw and examined the patient. I independently reviewed the labs, EKG, imaging, problem list, medication list, past medical history and family history. I verified all bailey points and agree with Archie Torres PA-C with the following exceptions and/or additions: 89 year old present to the ER with a nausea and vomiting episode. Appears resolved since admission. No urinary symptoms. O/E HS irregular rhythm, decreased rate, no murmurs, Chest CTAB, Abdo SNT, no pedal edema A/P Nausea and vomiting - ?secondary to tramadol, if ongoing consider urine Bradycardia with atrial fibrillation - ?cause of N&V, monitor on telemetry, consult cardiology PG Care Time/CCT Total # of Minutes Spent Total Time Spent with Patient: Total time spent is greater than 50% in coordination of care (as documented) at patient's floor/unit and/or counseling patient: C[place] [address] INT INP/OBS CARE 3/75MIN Patient Type Established Medical Decision Making High Complexity Diagnoses Nausea and vomiting, unspecified vomiting type R11.2 Vomiting type: unspecified Closed compression fracture of L1 vertebra S32.010A Bradycardia R00.1 Atrial fibrillation I48.91 Cellulitis of right leg L03.115 Chronic indwelling Fu catheter Z97.8 Anemia D64.9 Prostate cancer C61 Advanced care planning/counseling discussion Z71.89 (1) Nausea and vomiting Vomiting type: unspecified Qualified Code(s): R11.2 - Nausea with vomiting, unspecified
[2024-08-04] MEDS: ONDANSETRON INJ 2 MG/ML 2 ML VIAL IV STA (12:16)
[2024-08-04] MEDS: ONDANSETRON INJ 2 MG/ML 2 ML VIAL ONE (12:16)
[2024-08-04 12:18] LABS: C Reactive Protein 8.82 mg/dl (0-0.5)
--- NOTE | 2024-08-04 12:45 | Ultrasound Report ---
RIGHT LOWER EXTREMITY VENOUS DOPPLER CLINICAL HISTORY: Erythema / swelling, DVT r/o COMPARISON STUDY: No previous studies for comparison. TECHNIQUE: Sonography of the deep venous system of the right lower extremity was performed. Compress ion and augmentation were evaluated. FINDINGS: The right common femoral, superficial femoral and popliteal veins were compressible. Augme ntation was normal. Flow was shown within the deep calf vessels. IMPRESSION: No evidence of deep venous thrombus within the right lower extremity. ACT 112: Negative or not required by law. Electronically signed by: Donald Pena M.D. 08/04/2024 12:42 PM
[2024-08-04] MEDS: PANTOprazole 40 MG/10 ML SYR IV ONE (13:54)
[2024-08-04] MEDS ORDERED: POLYETHYLENE (MIRALAX) 17 GM PACK PO PRN (14:51)
[2024-08-04] MEDS ORDERED: ONDANSETRON INJ 2 MG/ML 2 ML VIAL IV PRN (14:51)
[2024-08-04] MEDS: ARTIFICIAL TEARS OP SCH (17:04)
[2024-08-04] MEDS: FUROSEMIDE 20 MG TAB PO SCH (17:04)
[2024-08-04] MEDS: cephALEXin 500 MG CAP PO SCH (20:18)
[2024-08-04] MEDS: ATORVASTATIN 20 MG TAB PO SCH (20:18)
[2024-08-05] MEDS: LEVOTHYROXINE SODIUM 125 MCG TABLET PO SCH (05:42)
[2024-08-05 06:17] LABS: Basophils # (auto) 0.01 K/uL (0.00-0.20); Basophils % (auto) 0.1 %; Eosinophils # (auto) 0.15 K/uL (0.00-0.50); Eosinophils % (auto) 1.5 %; Hematocrit (blood only) 27.2 % (42.0-52.0); Hemoglobin 8.5 g/dl (14.0-18.0); Immature Granulocytes # (auto) 0.04 K/uL (0.01-0.20); Immature Granulocytes % (auto) 0.4 %; Lymphocytes # (auto) 1.62 K/uL (1.20-3.40); Lymphocytes % (auto) 16.5 %; Mean Corpuscular Hemoglobin 29.3 pg (25.0-34.0); Mean Corpuscular Hgb Conc 31.3 g/dL (32.0-36.0); Mean Corpuscular Volume 93.8 fL (80.0-100.0); Monocytes # (auto) 2.97 K/uL (0.11-0.59); Monocytes % (auto) 30.2 %; Neutrophils # (auto) 5.04 K/uL (1.40-6.50); Neutrophils % (auto) 51.3 %; Platelet Count 230 K/uL (130-400); RDW Coefficient of Variation 17.4 % (11.5-14.5); RDW Standard Deviation 60.1 fL (36.4-46.3); White Blood Count 9.83 K/ul (4.8-10.8)
[2024-08-05 06:46] LABS: BUN Creatinine Ratio 23.5 (10-20); C Reactive Protein 8.63 mg/dl (0-0.5); Calcium 8.5 mg/dl (8.6-10.3); Potassium 5.1 mmol/L (3.5-5.1)
[2024-08-05] MEDS: FERROUS SULFATE 325 MG TAB PO SCH (07:47)
[2024-08-05] MEDS: LIDOCAINE 5% 1 PATCH TD SCH (07:48)
[2024-08-05] MEDS: cephALEXin 500 MG CAP PO SCH (08:20)
[2024-08-05] MEDS: POTASSIUM CHLORIDE CRTAB 20 MEQ TABCR PO SCH (08:20)
[2024-08-05] MEDS: SODIUM CHLORIDE 0.9% 1,000 ML IV SCH (08:20)
--- NOTE | 2024-08-05 10:51 | Hospitalist Progress Note ---
Date of Service August 05, 2024 Assessment & Plan (1) Nausea and vomiting: Plan: Present on admission. Now resolved. Difficult to say if this was viral or possibly from the tramadol he took. Anyway, it has resolved. Supportive care. (2) Closed compression fracture of L1 vertebra: Plan: Recent diagnosis. Pain control measures. Supportive care (3) Bradycardia: Plan: He has chronic atrial fibrillation and occasional prolonged RR to RR intervals and telemetry calculates a low heart rate. This does not appear to be a significant problem at this time and I highly doubt if cardiology is going to recommend pacemaker placement. Cardiology consultation has been requested on admission and is pending (4) Atrial fibrillation: Plan: Chronic. No systemic anticoagulation. He was recently taken off Coumadin therapy. Due to his issues with hematuria and bladder clots. Not currently on rate control medications. Occasional prolonged R to R interval with resultant bradycardia calculated by telemetry. Cardiology consultation requested on admission and pending (5) Cellulitis of right leg: Plan: Mild. Oral Keflex therapy. Venous Doppler negative for DVT (6) Chronic indwelling Fu catheter: Plan: Patient had his Fu catheter changed 2 days prior to this admission. No evidence of hematuria. (7) Anemia: Plan: Chronic. Mild. No evidence of active bleeding. Serial labs (8) Prostate cancer: Plan: History of prostate cancer with metastasis. Supportive care (9) Advanced care planning/counseling discussion: Plan: Patient was recently discharged from hospice as he was doing much better (10) Acute worsening of stage 3 chronic kidney disease: Plan: IV fluids ordered. Monitor intake and output. Serial labs (11) Cellulitis of right lower extremity: Plan: Mild. Oral Keflex therapy Plan Hopeful return to [facility] tomorrow, August 06 Admission and Anticipated Discharge Date Admission Date: August 04, 2024 Subjective No recurrent nausea and vomiting. This may have been viral but it could possibly have been due to the tramadol he took. I spoke to his daughter, Jaylin. He will return to [facility] tomorrow, August 06 if they will take him and he is stable. Review of Systems 2 Review of Systems: Constitutionalno fever or chills ENTno blurred vision, no double vision, no epistaxis, no sore throat Respiratoryno cough, no wheezing, no shortness of breath Cardiacno palpitations, no chest pain, no syncope GInausea and vomiting that prompted admission have now resolved. No diarrhea, melena, hematochezia GUno urinary retention, no urinary incontinence, no dysuria, no hematuria Musculoskeletalno joint pain, no muscle tenderness Skinno bruising, no rashes, no pruritus Neurono isolated weakness, no paresthesia, no weakness Psychno depression, no anxiety Physical Exam 2 Physical Exam: General-alert and oriented x3, no fever HEENT-head atraumatic and normocephalic, pupils equal and reactive to light, extraocular muscles intact Neck-no lymphadenopathy or thyromegaly, trachea midline Chest-clear to auscultation. No rales, wheezing or rhonchi Cardiac-regular rate and rhythm, normal S1 and S2 Abdomen-normal bowel sounds, no hepatosplenomegaly Extremities-no cyanosis, clubbing, or edema Neuro-cranial nerves II through XII intact, motor and sensory function within normal limits, strength symmetrical although he has generalized weakness consistent with age, no focal deficits Psych-normal affect, normal mood Results & Data Results & Data Vital Signs (Past 12 Hours) Vital Signs Temp Pulse Resp BP Pulse Ox O2 Del Method 08/05/24 07:29 36.3 C L 60 16 162/66 H 96 Room Air 08/05/24 04:17 36.3 C L 54 L 18 141/64 H 97 Room Air Laboratory Results 08/05/24 05:25 08/05/24 05:25 PG Care Time/CCT Total # of Minutes Spent Total Time Spent with Patient: Total time spent is greater than 50% in coordination of care (as documented) at patient's floor/unit and/or counseling patient: Coding Level of Care Code 93983 SUB INP/OBS CARE 3/50MIN Diagnoses Nausea and vomiting, unspecified vomiting type R11.2 Vomiting type: unspecified Closed compression fracture of L1 vertebra S32.010A Bradycardia R00.1 Atrial fibrillation I48.91 Cellulitis of right leg L03.115 Chronic indwelling Fu catheter Z97.8 Anemia D64.9 Anemia type: unspecified type Prostate cancer C61 Advanced care planning/counseling discussion Z71.89 Acute worsening of stage 3 chronic kidney disease N18.30 (1) Nausea and vomiting Vomiting type: unspecified Qualified Code(s): R11.2 - Nausea with vomiting, unspecified (7) Anemia Anemia type: unspecified type Qualified Code(s): D64.9 - Anemia, unspecified
--- NOTE | 2024-08-05 12:11 | Cardiology Consultation ---
Date of Consultation August 05, 2024 Assessment & Plan (1) Atrial fibrillation, permanent: -Ventricular response varies from the upper 40s to the upper 60s. -This has been present for over 1 year. -The patient remains asymptomatic. -No indication for permanent pacemaking at this time. -No anticoagulation since November due to gross hematuria. (2) Hyperlipemia: -Continue atorvastatin. 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 History of Present Illness Attending Physician: Matthew Guidry MD History of Present Illness Florentin Goncalves is an 89-year-old male admitted yesterday with acute nausea and vomiting. He has demonstrated some relative bradycardia on the monitor, and therefore, this consultation was ordered. Of note, the patient is typically followed by a duck farmer outside of [place]. The patient was in his usual state of health until yesterday when he had the acute onset of nausea and vomiting. He was sent to the emergency room for further evaluation and care. Overnight, the patient demonstrated a ventricular response as low as 48 bpm. However, heart rate is increased to the 60-68 bpm range this morning. The patient explains that he has had a lower heart rate for several years. He has never experienced syncope or presyncope. Prior to his L1 compression fracture diagnosed on July 25, the patient was ambulatory without exertional chest pain or limiting dyspnea. He does carry history of permanent atrial fibrillation. Long-term anticoagulation was discontinued back in November due to refractory gross hematuria. Currently, patient is resting comfortably in bed and without complaints. Past medical and surgical history 1. Permanent atrial fibrillationsee above 2. Hypercholesterolemia 3. 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 Hypothyroidism 5. Chronic renal failure 6. Nephrolithiasis 7. Prostate [id number] 8. L1 compression fractureJuly 25, 2024 9. Partial pancreatectomy 10. 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 Anemia of chronic disease Social history Lives at [facility]. Hails from [place]. His daughter lives in the area. No tobacco or alcohol. Family history Noncontributory Review of systems A 10 point review of systems was undertaken and negative except for that described above. Allergies Allergy/AdvReac Type Severity Reaction Status Date / Time tramadol AdvReac Severe Vomiting/Zombie Unverified 08/04/24 11:22 [facility] Home Medications Medication Instructions Recorded Confirmed Type ferrous sulfate 325 mg (65 mg 325 mg PO DAILY 90 days #90 tabs 08/11/23 08/04/24 Rx iron) tablet atorvastatin 20 mg tablet 20 mg PO QPM #90 tabs 10/27/23 08/04/24 Rx acetaminophen 500 mg tablet 1,000 mg PO Q4H PRN Pain/Fever 08/04/24 08/04/24 History acetaminophen 650 mg rectal 650 mg ND Q4H PRN Elevated Temp 08/04/24 08/04/24 History suppository carboxymethylcellulose sodium 1 % 1 drp OPB TID Dry Eye 08/04/24 08/04/24 History eye drops (Artificial Tears (carboxymethylcellulose)) cephalexin 500 mg capsule 500 mg PO TID 08/04/24 08/04/24 History diphenhydramine HCl 25 mg capsule 25 mg PO Q6H PRN Itching 08/04/24 08/04/24 History (Benadryl) furosemide 40 mg tablet (Lasix) 20 mg PO BID 08/04/24 08/04/24 History ibuprofen 200 mg tablet 200 mg PO Q6H PRN Mild Pain (Scale 08/04/24 08/04/24 History Score 1-4) levothyroxine 125 mcg tablet 125 mcg PO DAILY 08/04/24 08/04/24 History lidocaine 5 % topical ointment 1 applic topical DAILY PRN 08/04/24 08/04/24 History Discomfort when changing catheter loperamide 2 mg capsule 2 mg PO Q4H PRN Diarrhea 08/04/24 08/04/24 History ondansetron 4 mg disintegrating 4 mg PO Q4H PRN Nausea And Vomiting 08/04/24 08/04/24 History tablet phenazopyridine 95 mg tablet 0 mg PO TIDWMEAL PRN Urinary 08/04/24 08/04/24 History (Urinary Pain Relief) Discomfort polyethylene glycol 3350 17 gram 17 g PO DAILY PRN Constipation 08/04/24 08/04/24 History oral powder packet (Miralax) potassium chloride 10 mEq 20 meq PO DAILY 08/04/24 08/04/24 History tablet,extended release tramadol 50 mg tablet 50 - 100 mg PO UD PRN Mod/Severe 08/04/24 08/04/24 History Pain Patient History Medical History Kidney stone Social History Smoking Status: Former smoker Tobacco Type: Cigars Do You Dip or Chew Tobacco: No; Tobacco Cessation Education Requested by Patient: No Hx Alcohol Use: No Hx Substance Use: No Preferred Language: Georgian Communication Ability: Effective Security Program Manager Required: No Beliefs That Will Affect Care: None Current Living Situation: [facility] Current Living Situation Comment: lives with daughter Other Information That Helps Us Care for You: No Feels Safe at Home: Yes Safety Concerns: Feels Safe At This Time Assistive Devices: Wheelchair Physical Exam Physical Exam: In general this is a well-developed well-nourished elderly white male in no acute distress. HEENT exam is negative. Neck reveals normal carotid upstrokes without bruits. Jugular venous pressure is flat at 90. There is no thyromegaly. Cardiovascular exam reveals an irregular rhythm with distant heart sounds. Chest reveals well-healed midline scar. Lungs are clear without rales, rhonchi, or wheezes. Abdomen is soft without bruits. Extremities reveal intact radial artery pulses bilaterally. There is no peripheral edema. Results & Data Vital Signs (Past 12 Hours) Vital Signs Temp Pulse Resp BP Pulse Ox O2 Del Method 08/05/24 11:42 37 C 56 L 17 150/66 H 96 Room Air 08/05/24 07:29 36.3 C L 60 16 162/66 H 96 Room Air 08/05/24 04:17 36.3 C L 54 L 18 141/64 H 97 Room Air Diagnostic Findings EKG notes atrial fibrillation with a right bundle branch block and a left anterior hemiblock. PG Care Time/CCT Total # of Minutes Spent Total Time Spent with Patient: Total time spent is greater than 50% in coordination of care (as documented) at patient's floor/unit and/or counseling patient: Coding Level of Care Code 02745 INT INP/OBS CARE 3/75MIN Diagnoses Atrial fibrillation, permanent I48.21 Hyperlipemia E78.5 History of atrial myxoma Z86.018
[2024-08-06 07:05] LABS: Basophils # (auto) 0.03 K/uL (0.00-0.20); Basophils % (auto) 0.3 %; Eosinophils # (auto) 0.11 K/uL (0.00-0.50); Eosinophils % (auto) 1.2 %; Hematocrit (blood only) 27.1 % (42.0-52.0); Hemoglobin 8.5 g/dl (14.0-18.0); Immature Granulocytes # (auto) 0.03 K/uL (0.01-0.20); Immature Granulocytes % (auto) 0.3 %; Lymphocytes # (auto) 2.37 K/uL (1.20-3.40); Lymphocytes % (auto) 24.8 %; Mean Corpuscular Hemoglobin 29.4 pg (25.0-34.0); Mean Corpuscular Hgb Conc 31.4 g/dL (32.0-36.0); Mean Corpuscular Volume 93.8 fL (80.0-100.0); Mean Platelet Volume 12.9 fL (9.4-12.4); Monocytes # (auto) 2.43 K/uL (0.11-0.59); Monocytes % (auto) 25.4 %; Neutrophils # (auto) 4.59 K/uL (1.40-6.50); Platelet Count 199 K/uL (130-400); RDW Coefficient of Variation 17.2 % (11.5-14.5); RDW Standard Deviation 58.3 fL (36.4-46.3); Red Blood Count 2.89 M/uL (4.70-6.10); White Blood Count 9.56 K/ul (4.8-10.8)
[2024-08-06 07:29] LABS: BUN Creatinine Ratio 23.5 (10-20); Calcium 8.4 mg/dl (8.6-10.3); Creatinine Clr Calc Pharmacy 24.3 ml/min; Potassium 4.5 mmol/L (3.5-5.1)
--- NOTE | 2024-08-06 10:22 | Discharge Summary ---
Discharge Summary Date of Service August 06, 2024 Principal Dx & Hospital Course #1 = Principal Diagnosis (1) Nausea and vomiting: Resolved. This may have simply been due to a viral illness. There is some question whether tramadol contributed. (2) Closed compression fracture of L1 vertebra: Recent diagnosis. Pain control measures if needed. Supportive care (3) Bradycardia: He has chronic atrial fibrillation and occasional prolonged RTR intervals with telemetry calculating a low heart rate. He has been seen by cardiology. Pacemaker is not needed at this time. (4) Atrial fibrillation: Chronic. Taken off of warfarin therapy in November 2023 due to hematuria/blood clots causing urinary retention. Telemetry. Cardiology consultation appreciated. No indication for pacemaker at this time. (5) Cellulitis of right leg: Currently on oral Keflex therapy. Right lower extremity venous Doppler negative for DVT (6) Chronic indwelling Fu catheter: Fu catheter changed 2 days ago. H/o recurrent UTIs (7) Anemia: Chronic. Mild. No active bleeding. Serial labs. (8) Prostate cancer: History of prostate cancer with bone metastasis (9) Acute worsening of stage 3 chronic kidney disease: Treated with IV fluids. Monitor intake and output. Serial labs. Plan Discharge back to [facility] today, August 06 Admission HPI Per Admitting Provider Florentin is an 89-year-old male with PMH of atrial fibrillation (formerly on warfarin), prostate cancer with metastasis, C. difficile infection, HLD, urinary retention, chronic indwelling Fu catheter, recurrent UTIs, and NSTEMI. He presented via EMS from [facility] on 08/04 for acute onset of vomiting after eating breakfast this morning. Patient's daughter (Jaylin) is at bedside and provides additional history. Patient reports that he felt fine yesterday; no nausea or vomiting. He then ate breakfast this morning and had 1 episode of nausea and vomiting, and while he has not vomited since, he has had nausea and dry heaves. Patient was diagnosed with a compression fracture last week, and reports that he started taking tramadol yesterday. Patient's daughter reports that he took tramadol years back, and had to stop due to side effects (lethargy; no history of N/V with tramadol). Patient's daughter also reports that he develops nausea and vomiting whenever he goes through a "transition"; for instance, when patient used to live with his daughter, whenever he would go over to his other daughter's house he would develop nausea and vomiting. No sick contacts. No history of SBO. Patient does have history of cholecystectomy many years ago, and pancreatitis. Patient reports that he took his regular morning medicine at breakfast today. Only recent change in medications were tramadol, and that he has been taking an antibiotic for his RLE cellulitis; Keflex prescribed on 08/02. No prior history of cellulitis. No history of MRSA infections. No weeping or purulent drainage from the leg. No recent falls or injuries to the head/neck/abdomen/legs. Patient ambulates with a walker at baseline, but has been largely sedentary ever since his diagnosis of compression fracture. Additionally, patient had his urinary catheter removed 2 days ago as it was causing pain. 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 Patient was previously on hospice care, but was discharged from hospice recently as he was doing much better. He reports he does have a history of "slow heart rate". Additionally, he does have history of nausea/vomiting with UTIs. No history of DVT/PE. Patient reports his right lower leg was initially itchy, but this has resolved. Patient denies smoking, tobacco use, recent alcohol use. NKDA. Patient reports he has no antibiotic allergies. Patient is mildly bradycardic at 47 bpm at time of admission; vitals otherwise stable. Cellulitis RLE Former itching and pain ED course: NSS 500 mL IV ROS: Patient endorses acute nausea and vomiting, fatigue, redness and swelling in the RLE, and intermittent burning with urination. Patient denies fever, chills, night-sweats, dizziness, lightheadedness, chest pain, SOB, cough, abdominal pain, diarrhea, dysuria, hematuria, or pain in legs. Discharge Exam General-alert and oriented x3, no fever, no chills HEENT-head atraumatic and normocephalic, pupils equal and reactive to light, extraocular muscles intact Neck-no lymphadenopathy or thyromegaly, trachea midline Chest-clear to auscultation. No rales, wheezing or rhonchi Cardiac-regular rate and rhythm, normal S1 and S2 Abdomen-normal bowel sounds, no hepatosplenomegaly Extremities-no cyanosis, clubbing, or edema GUFoley catheter in place. No hematuria Neuro-cranial nerves II through XII intact, motor and sensory function within normal limits, strength symmetrical although he has generalized weakness consistent with advanced age, no focal deficits Psych-normal affect, normal mood Discharge Plan Discharge Items Patient Disposition: Personal [facility] Reason For Visit: BRADYCARDIA, VOMITING Discharge Diagnosis: Transient nausea and vomiting of suspected viral etiology, acute kidney injury Activity: Resume your previous activity Non-emergency contact: Primary Care Provider Call non-emergency contact if: your symptoms worsen Follow-up/Referrals: John Rangel DO [Primary Care Provider] - Diet: Regular and Heart Healthy Addtl Attending Provider Instructions: All medications remain the same Pending Studies at Discharge: No Stand-Alone Forms: [employer], Smoking Cessation Skilled Items Patient informed of condition?: Yes DNR: Yes Discharge Level of Care: Other Communicable Disease: No Discharge Prognosis: Stable Lines: None Urinary Catheter: Yes Medications and DC Order Prescriptions: Continued atorvastatin 20 mg tablet 20 mg PO QPM Qty: 90 3RF ferrous sulfate 325 mg (65 mg iron) tablet 325 mg PO DAILY 90 Days Qty: 90 3RF polyethylene glycol 3350 [Miralax] 17 gram Powder In Packet 17 g PO DAILY PRN (Reason: Constipation) potassium chloride 10 mEq tablet extended release 20 meq PO DAILY tramadol 50 mg tablet 50 - 100 mg PO UD PRN (Reason: Mod/Severe Pain) Rx Instructions: Take 50mg - 100mg by mouth every 4-6 hours as needed for moderate to severe pain phenazopyridine [Urinary Pain Relief] 95 mg Tablet 0 mg PO TIDWMEAL PRN (Reason: Urinary Discomfort) Rx Instructions: No strength listed on MAR from nursing facility. Original Directions: Take 2 tablets by mouth TID as needed for urinary discomfort cephalexin 500 mg capsule 500 mg PO TID Rx Instructions: Start Date 08/02/24 x10 day supply Artificial Tears (cmc) 1 % Drops 1 drp OPB TID furosemide [Lasix] 40 mg tablet 20 mg PO BID acetaminophen 650 mg Suppository 650 mg NM Q4H PRN (Reason: Elevated Temp) loperamide 2 mg Capsule 2 mg PO Q4H PRN (Reason: Diarrhea) Rx Instructions: administer after each loose stool until symptoms controlled; do not exceed 8 mg per 24 hrs acetaminophen [Tylenol Ex Str Rapid Release] 500 mg Tablet 1,000 mg PO Q4H MDD 3gms APAP/24hrs PRN (Reason: Pain/Fever) diphenhydramine HCl [Benadryl] 25 mg Capsule 25 mg PO Q6H PRN (Reason: Itching) levothyroxine 125 mcg tablet 125 mcg PO DAILY ibuprofen 200 mg Tablet 200 mg PO Q6H PRN (Reason: Mild Pain (Scale Score 1-4)) ondansetron [Zofran ODT] 4 mg Tablet,Disintegrating 4 mg PO Q4H PRN (Reason: Nausea And Vomiting) lidocaine 5 % Ointment 1 applic TOPICAL DAILY PRN (Reason: Discomfort when changing catheter) Rx Instructions: Apply to penis topically as needed for catheter Discharge Orders: Discharge Order (Routine); Ordered 08/06/24 Ordered By: Matthew Guidry Admission Data Admit Date/Time: 08/04/24 11:54 Attending Provider: Matthew Guidry Admit Provider: Oskar Elkins Primary Care Provider: John Rangel Other Providers: Oskar Elkins; Orlin Gannon Hospital Stay Data Consultations 08/04/24 11:21 ED Decision to Admit Stat 08/04/24 14:51 Consult Cardiology Routine Diagnostic Imagining Performed 08/04/24 11:54 US venous doppler LE RT Urgent Pending Results Patient Have Any Pending Studies at Discharge: No Discharge Instructions Given to Patient (Per Discharging Provider) All medications remain the same Total Time Total Time Spent Total Time Spent (In Minutes): 45 minutes Coding Level of Care Code 33692 INP/OBS DISCH >30 MIN Diagnoses Nausea and vomiting, unspecified vomiting type R11.2 Vomiting type: unspecified Closed compression fracture of L1 vertebra S32.010A Bradycardia R00.1 Atrial fibrillation I48.91 Cellulitis of right leg L03.115 Chronic indwelling Fu catheter Z97.8 Anemia D64.9 Anemia type: unspecified type Prostate cancer C61 Acute worsening of stage 3 chronic kidney disease N18.30
[2024-08-06] MEDS: ACETAMINOPHEN 325 MG TAB PO PRN (12:27)
[2024-08-06 15:32] VITALS: PULSE 61; RESP 20; TEMP 98.2; O2SAT 96
[2024-08-06 15:43] VITALS: BP 149/75
[2024-08-06] MEDS: PNEUMOCOCCAL VACCINE (PCV20) 20-VAL CONJ-DIP CRM/PF 0.5 ML SYR IM ONE (16:20)
--- NOTE | 2024-08-07 13:20 | Electrocardiogram Report ---
Test Reason : Blood Pressure : */* mmHG Vent. Rate : 49 BPM Atrial Rate : 32 BPM P-R Int : * ms QRS Dur : 158 ms QT Int : 532 ms P-R-T Axes : * -56 51 degrees QTcB Int : 480 ms Atrial fibrillation Right bundle branch block Left anterior fascicular block Bifascicular block Septal infarct (cited on or before 16-Sep-2023) Abnormal ECG When compared with ECG of 16-Sep-2023 11:26, Questionable change in initial forces of Septal leads Confirmed by Tyrone Flores ([id number]) on 08/07/2024 1:19:43 PM Referred By: Confirmed By: Tyrone Flores
== END 2024-08-06 18:49 | disposition home or self-care (01) ==
LOC: 2N 08:58 → ED 08:58 → SUATTDRO 11:54 → 2N 14:20